=== PATIENT | male | born 1950 | race Caucasian/White ===

== ENCOUNTER 2020-06-12 03:20 | Emergency (ER) | payer OTHER ==
[2020-06-12 04:00] LABS: Basophils % 1.1 % (0-1.3); Hematocrit 39.4 % (39.6-49.0); Lymphocytes % 24.1 % (15.3-44.8); MPV 10.5 fL (7.6-11.3); RBC Red Blood Cell Count 4.38 M/uL (4.33-5.43)
[2020-06-12 04:03] LABS: Protime INR 1.12
[2020-06-12 04:32] LABS: ALT/SGPT 36 U/L (12-78); AST/SGOT 38 U/L (15-37); Albumin 3.3 g/dL (3.4-5.0); Alkaline Phosphatase 115 U/L (45-117); BUN Blood Urea Nitrogen 28 mg/dL (7-18); Bicarbonate 25 mmol/L (21-32); Bilirubin Direct 0.2 mg/dL (0-0.2); Bilirubin Total 0.6 mg/dL (0.2-1.0); Glucose Level 229 mg/dL (74-106); NT PRO-BNP 2523 pg/mL (<125); Potassium 4.1 mmol/L (3.5-5.1); Protein, Total 7.4 g/dL (6.4-8.2); Sodium Level 139 mmol/L (136-145); Troponin (Emerg Dept Use Only) < 0.02 ng/mL (0.0-0.045)
[2020-06-12] MEDS ORDERED: AZITHROMYCIN 500 MG INJ IVPB ONE (05:13)
[2020-06-12] MEDS ORDERED: NA CHLORIDE 0.9% 250 ML ONE (05:14)
[2020-06-12] MEDS ORDERED: FUROSEMIDE 20 MG/ 2ML VIAL ONE (05:15)
--- NOTE | 2020-06-12 06:38 | ER ---
Nurse's Notes [facility] Name: Gian Guallpa Age: 69 yrs Sex: Male : 1950 Arrival Date: 06/12/2020 Time: 03:21 Bed 5 Private MD: Diagnosis: Acute on chronic combined systolic (congestive) and diastolic (congestive) heart failure;Pneumonia due to other infectious organisms, not elsewhere classified Presentation: 06/12 03:32 Chief complaint: Patient states: SOB AND COUGH STARTED TWO NIGHTS AGO, WORSENING rv SYMPTOMS TONIGHT. DENIES CHEST PAIN AND FEVER. Coronavirus screen: cough unrelated to allergies, shortness of breath. Coronavirus screen: Client presents with at least one sign or symptom that may indicate coronavirus-19. Standard/surgical mask placed on the client. Provider contacted for isolation considerations. Ebola Screen: No symptoms or risks identified at this time. Initial Sepsis Screen: Does the patient meet any 2 criteria? No. Patient's initial sepsis screen is negative. Does the patient have a suspected source of infection? No. Patient's initial sepsis screen is negative. Risk Assessment: Do you want to hurt yourself or someone else? Patient reports no desire to harm self or others. Onset of symptoms was June 11, 2020. 03:32 Method Of Arrival: Ambulatory rv 03:32 Acuity: CELINA 3 rv Triage Assessment: 03:32 General: Appears comfortable, Behavior is calm, cooperative. Pain: Denies pain. EENT: rv No signs and/or symptoms were reported regarding the EENT system. Neuro: Level of Consciousness is awake, alert, obeys commands, Oriented to person, place, time, situation. Cardiovascular: Patient's skin is warm and dry. Rhythm is sinus rhythm. Respiratory: Reports shortness of breath at rest Breath sounds are clear bilaterally. Onset: The symptoms/episode began/occurred yesterday, the patient has mild shortness of breath. Derm: Skin is intact. Historical: - Allergies: 03:30 No Known Allergies; sg - PMHx: 03:30 CHF; Diabetes - NIDDM; Hyperlipidemia; Hypertension; Hypothyroidism; sg - PSHx: 03:30 Pace maker/ difibulator S/P 2008; lung sugery s/p 1972; skin cancer removal; sg - Immunization history:: Adult Immunizations up to date. - Social history:: Smoking status: Patient denies any tobacco usage or history of. Patient/guardian denies using alcohol, street drugs, The patient lives with family. - Family history:: not pertinent. Screenin:35 Abuse screen: Denies threats or abuse. Denies injuries from another. Nutritional rv screening: No deficits noted. Tuberculosis screening: No symptoms or risk factors identified. Fall Risk None identified. Assessment: 03:36 Respiratory: Airway is patent Respiratory effort is even, unlabored. rv Vital Signs: 03:32 BP 113 / 76; Pulse 96; Resp 18; Temp 97.8; Pulse Ox 89% on R/A; Weight 99.79 kg; Height rv 6 ft. 2 in. (187.96 cm); Pain 0/10; 04:07 Pulse Ox 98% on 2 lpm NC; rv 05:04 BP 103 / 45; Pulse 83; Resp 19; Pulse Ox 99% on 2 lpm NC; rv 06:09 BP 93 / 55; Pulse 88; Resp 18; Temp 98; Pulse Ox 93% on R/A; rv 03:32 Body Mass Index 28.25 (99.79 kg, 187.96 cm) rv ED Course: 03:21 Patient arrived in ED. cf2 03:26 Triston Antunez, CELESTINA is Primary Nurse. rv 03:34 Triage completed. rv 03:35 Arm band placed on right wrist. Patient placed in the treatment room, on a stretcher, rv Patient notified of wait time. 03:36 Patient has correct armband on for positive identification. independent distributor on. Pulse rv ox on. NIBP on. 03:36 No provider procedures requiring assistance completed. rv 03:45 Inserted saline lock: 20 gauge in right forearm, using aseptic technique. Blood rv collected. 03:45 Initial lab(s) drawn, by me, sent to lab. EKG done, by ED staff, reviewed by Candelario Schofield MD. 03:46 Candelario Schofield MD is Attending Physician. ma2 04:25 XRAY Chest (1 view) In Process Unspecified. EDMS 06:45 IV discontinued, intact, bleeding controlled, No redness/swelling at site. Pressure rv dressing applied. Administered Medications: 05:04 Drug: Lasix 20 mg Route: IVP; Site: right forearm; rv 06:09 Follow up: Response: No adverse reaction rv 05:04 Drug: AZITHromycin 500 mg Route: IVPB; Infused Over: 1 hrs; Site: right forearm; rv 06:10 Follow up: IV Status: Completed infusion; IV Intake: 250ml rv Intake: 06:10 IV: 250ml; Total: 250ml. rv Outcome: 06:09 Discharged to home ambulatory. rv 06:09 Condition: good 06:37 Discharge ordered by MD. aldana 06:45 Discharge instructions given to patient, Instructed on discharge instructions, follow rv up and referral plans. medication usage, Demonstrated understanding of instructions, follow-up care, medications, Prescriptions given X 2. 06:45 Patient left the ED. rv Signatures: Dispatcher [employer] EDMS Terence Rapp RN RN Candelario Schofield MD MD [facility] [place] Triston Antunez RN RN rv Brandan Osullivan 2
--- NOTE | 2020-06-12 06:38 | EDPHYS ---
Physician Documentation [facility] Name: Gian Guallpa Age: 69 yrs Sex: Male : 1950 Arrival Date: 06/12/2020 Time: 03:21 Bed 5 Private MD: ED Physician Candelario Schofield HPI: 06/12 04:15 This 69 yrs old Male presents to ER via Ambulatory with complaints of ma2 Shortness Of Breath. 04:15 The patient has shortness of breath with light activity. Onset: The symptoms/episode ma2 began/occurred gradually, 3 day(s) ago. Associated signs and symptoms: Pertinent negatives: productive cough, dizziness, hemoptysis, loss of consciousness. Severity of symptoms: At their worst the symptoms were mild in the emergency department the symptoms are unchanged. The patient has experienced similar episodes in the past. Historical: - Allergies: 03:30 No Known Allergies; sg - PMHx: 03:30 CHF; Diabetes - NIDDM; Hyperlipidemia; Hypertension; Hypothyroidism; sg - PSHx: 03:30 Pace maker/ difibulator S/P 2008; lung sugery s/p 1972; skin cancer removal; sg - Immunization history:: Adult Immunizations up to date. - Social history:: Smoking status: Patient denies any tobacco usage or history of. Patient/guardian denies using alcohol, street drugs, The patient lives with family. - Family history:: not pertinent. ROS: 04:15 Constitutional: Negative for fever, chills, and weight loss. ma2 04:15 All other systems are negative. Exam: 04:15 Constitutional: This is a well developed, well nourished patient who is awake, alert, ma2 and in no acute distress. Head/Face: Normocephalic, atraumatic. Eyes: Pupils equal round and reactive to light, extra-ocular motions intact. Lids and lashes normal. Conjunctiva and sclera are non-icteric and not injected. Cornea within normal limits. Periorbital areas with no swelling, redness, or edema. ENT: Nares patent. No nasal discharge, no septal abnormalities noted. Tympanic membranes are normal and external auditory canals are clear. Oropharynx with no redness, swelling, or masses, exudates, or evidence of obstruction, uvula midline. Mucous membranes moist. Neck: Trachea midline, no thyromegaly or masses palpated, and no cervical lymphadenopathy. Supple, full range of motion without nuchal rigidity, or vertebral point tenderness. No Meningismus. Chest/axilla: Normal chest wall appearance and motion. Nontender with no deformity. No lesions are appreciated. Cardiovascular: Regular rate and rhythm with a normal S1 and S2. No gallops, murmurs, or rubs. Normal PMI, no JVD. No pulse deficits. Respiratory: Lungs have equal breath sounds bilaterally, clear to auscultation and percussion. No rales, rhonchi or wheezes noted. No increased work of breathing, no retractions or nasal flaring. Abdomen/GI: Soft, non-tender, with normal bowel sounds. No distension or tympany. No guarding or rebound. No evidence of tenderness throughout. Back: No spinal tenderness. No costovertebral tenderness. Full range of motion. Skin: Warm, dry with normal turgor. Normal color with no rashes, no lesions, and no evidence of cellulitis. MS/ Extremity: Pulses equal, no cyanosis. Neurovascular intact. Full, normal range of motion. Neuro: Awake and alert, GCS 15, oriented to person, place, time, and situation. Cranial nerves II-XII grossly intact. Motor strength 5/5 in all extremities. Sensory grossly intact. Cerebellar exam normal. Normal gait. Vital Signs: 03:32 BP 113 / 76; Pulse 96; Resp 18; Temp 97.8; Pulse Ox 89% on R/A; Weight 99.79 kg; Height rv 6 ft. 2 in. (187.96 cm); Pain 0/10; 04:07 Pulse Ox 98% on 2 lpm NC; rv 05:04 BP 103 / 45; Pulse 83; Resp 19; Pulse Ox 99% on 2 lpm NC; rv 06:09 BP 93 / 55; Pulse 88; Resp 18; Temp 98; Pulse Ox 93% on R/A; rv 03:32 Body Mass Index 28.25 (99.79 kg, 187.96 cm) rv MDM: 03:46 Patient medically screened. f f [facility] 04:15 Differential diagnosis: Anxiety Reaction asthma, Bronchitis reactive airway disease. ma2 04:19 Data reviewed: vital signs, nurses notes. Counseling: I had a detailed discussion with ma2 the patient and/or guardian regarding: the historical points, exam findings, and any diagnostic results supporting the discharge/admit diagnosis, the presence of at least one elevated blood pressure reading (>120/80) during this emergency department visit, the need for outpatient follow up. ED course: patient has not been taking his lasix recently \E\. 06:36 Response to treatment: the patient's symptoms have markedly improved after treatment. ma2 06/12 03:44 Order name: Basic Metabolic Panel; Complete Time: 04:55 rv 06/12 03:44 Order name: CBC with Diff; Complete Time: 04:20 06/12 03:44 Order name: LFT's; Complete Time: 04:55 rv 06/12 03:44 Order name: Magnesium; Complete Time: 04:55 06/12 03:44 Order name: NT PRO-BNP; Complete Time: 04:55 06/12 03:44 Order name: PT-INR; Complete Time: 04:55 rv 06/12 03:44 Order name: Troponin (emerg Dept Use Only); Complete Time: 04:55 rv 06/12 03:44 Order name: XRAY Chest (1 view) rv 06/12 03:44 Order name: EKG; Complete Time: 03:45 rv 06/12 05:31 Order name: SARS-COV-2 RT PCR; Complete Time: 06:05 EDMS 06/12 03:44 Order name: Cardiac monitoring; Complete Time: 03:46 06/12 03:44 Order name: EKG - Nurse/Tech; Complete Time: 03:46 rv 06/12 03:44 Order name: IV Saline Lock; Complete Time: 03:46 rv 06/12 03:44 Order name: Labs collected and sent; Complete Time: 03:46 06/12 03:44 Order name: O2 Per Protocol; Complete Time: 03:46 06/12 03:44 Order name: O2 Sat Monitoring; Complete Time: 03:46 rv Administered Medications: 05:04 Drug: Lasix 20 mg Route: IVP; Site: right forearm; rv 06:09 Follow up: Response: No adverse reaction rv 05:04 Drug: AZITHromycin 500 mg Route: IVPB; Infused Over: 1 hrs; Site: right forearm; rv 06:10 Follow up: IV Status: Completed infusion; IV Intake: 250ml rv Disposition: 06/12/20 06:37 Discharged to Home. Impression: Acute on chronic combined systolic (congestive) and diastolic (congestive) heart failure, Pneumonia due to other infectious organisms, not elsewhere classified. - Condition is Stable. - Discharge Instructions: Community-Acquired Pneumonia, Adult, [id number], Heart Failure, [id number]. - Prescriptions for Lasix 20 mg Oral Tablet - take 1 tablet by ORAL route once daily; 20 tablet. Zithromax Z- Farhan 250 mg Oral Tablet - take 1 tablet by ORAL route as directed for 5 days Day 1 - take two (2) tablets one time. Day 2, 3, 4 , 5 take one (1) tablet once daily.; 6 tablet. - Medication Reconciliation Form, Thank You Letter, Antibiotic Education, Prescription Opioid Use form. - Follow up: Private Physician; When: Tomorrow; Reason: Continuance of care. Signatures: Dispatcher [employer] EDDC Terence Rapp RN RN sg Candelario Schofield MD MD ma2 Triston Antunez RN RN rv Corrections: (The following items were deleted from the chart) 04:39 04:15 CORONAVIRUS ordered. EDDC EDMS 06:45 06:37 06/12/2020 06:37 Discharged to Home. Impression: Acute on chronic combined rv systolic (congestive) and diastolic (congestive) heart failure; Pneumonia due to other infectious organisms, not elsewhere classified. Condition is Stable. Prescriptions for Lasix 20 mg Oral Tablet - take 1 tablet by ORAL route once daily; 20 tablet, Zithromax Z-Farhan 250 mg Oral Tablet - take 1 tablet by ORAL route as directed for 5 days Day 1 - take two (2) tablets one time. Day 2, 3, 4 , 5 take one (1) tablet once daily.; 6 tablet. and Forms are Medication Reconciliation Form, Thank You Letter, Antibiotic Education, Prescription Opioid Use. Follow up: Private Physician; When: Tomorrow; Reason: Continuance of care. ma2
[2020-06-12 06:57] VITALS: BP 93/55; TEMP 98; O2SAT 93
--- NOTE | 2020-06-12 07:43 | RAD REPORT ---
EXAM DESCRIPTION: Bharathi Single View06/12/2020 4:24 am CLINICAL HISTORY: Shortness of breath COMPARISON: 2013 FINDINGS: Mild left lung opacities. Postsurgical changes involve the left lung with volume loss. The re may be a small left pleural effusion or thickening Right lung appears clear of acute infiltrate The heart is mildly to moderately enlarged. Pacemaker leads in place IMPRESSION: Mild left lung opacities may represent pneumonia. This should be followed until it is cl ear to help exclude a post obstructive process/underlying mass
--- NOTE | 2020-06-12 18:41 | EKG ---
Test Date: 2020-06-12 Test Time: 03:36:25 Reservation Clerk: MIKE MEASUREMENT RESULTS: Intervals: Rate: 90 SC: 198 QRSD: 150 QT: 432 QTc: 528 [place]: P: 75 SC: 198 QRS: 104 T: -73 INTERPRETIVE STATEMENTS: Atrial-sensed ventricular-paced rhythm Abnormal ECG Compared to ECG 03/09/2014 07:04:31 Sinus rhythm no longer present Ventricular premature complex(es) no longer present Electronically Signed On 06-12-20 18:40:12 RUG TOUCH UP PAINTER by Reggie Mcdonald
--- OUTSIDE RECORDS SUMMARY | 2020-06-13 02:43 | XMS REPORT | Continuity of Care Document ---
:1950 Author Organization [facility] t Address [address] [place] [address] [address]. [address] [place] [address] Care Team Providers Name Role Phone Daryl Crawford MD Primary Care Physician Mirna HARP Attending Clinician Devante DOMINGUEZ Attending Clinician Chantell OSCAR, D Attending Clinician Unavailable Abe STERN Attending Clinician Unavailable Amado HARP Attending Clinician Jolene HARP Attending Clinician Sarahi OSCAR Attending Clinician Unavailable Kris Attending Clinician Unavailable Sharmin COPE Attending Clinician Unavailable Tracy Mackenzie MA Attending Clinician Unavailable CHRISTO Attending Clinician Unavailable CHRISTO Kimbroughitting Clinician Unavailable Payers Payer Name Policy Type Policy Effective Date Expiration Date Sour ce Number MEDICAREMEDICARE PART [id number] 2014 Antolin Perdomo AND 00:00:00 [facility] [id number] [address] [facility] [employer] [id number] 2014 Yana ston OF 00:00:00 Orthodox [id number] 5-PresentCommercial Problems Condition Condition Condition Status Onset Resolution Last Treating Co mments Source Name Details Category Date Date Treatment Clinician Date Heart Heart Disease Active Overview: [place] n failure failure 4- Added Methodi 00:00: automatic st 00 ally from request for surgery [id number] Cardiomyop Cardiomyop Disease Active Overview : Maik athy athy 08-02 Added Methodi 00:00: automatic st 00 ally from request for surgery [id number] 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 7-11 Method i mellitus mellitus 00:00: st with with 00 hyperglyce hyperglyce tho, tho, without without long-term long-term current current use of use of insulin insulin Chronic Chronic Disease Active Overview: [place] combined combined 3-19 Added Method i systolic systolic 00:00: automatic st and and 00 ally from diastolic diastolic request congestive congestive for heart heart surgery failure failure [id number] Secondary Secondary Disease Active Yana ston hypertensi hypertensi 9-06 Me thodi on on 00:00: st 00 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 Family History Family Member Diagnosis Comments Start Date Stop Date Source [facility] Social History Social Habit Start Date Stop Date Quantity Comments Source [facility] Not sure Jay Metho dist SARS-CoV-2 (event) Cigarettes smoked 2019-12-21 2019-12-21 Jay [facility] current (pack per 00:00:00 00:00:00 day) - Reported Cigarette 2019-12-21 2019-12-21 Jay Method ist pack-years 00:00:00 00:00:00 Tobacco use and 2019-12-21 2019-12-21 [facility] 00:00:00 00:00:00 Alcohol intake 2019-12-21 2019-12-21 [facility]:00 00:00:00 non-drinker of alcohol (finding) Smoking Status Start Date Stop Date Source Former smoker 2019-12-21 00:00:00 2019-12-21 00:00:00 Maik Renteria Medications Ordered Filled Start Stop Current Ordering Indication Dosage Frequency Signature Comments Components Source Medication Medication Date Date Medication? Clinician (SIG) Name Name carvediloL Yes Chronic TAKE 1 Antolin friendyonathan (COREG) 25 2-01 combined TABLET (25 Methodi MG tablet 00:00: systolic MG TOTAL) st 00 and BY MOUTH 2 diastolic (TWO) congestive TIMES A heart DAY FOR failure 270 DAYS. (HCC) torsemide 2020- Yes 20mg QD TAKE 1 [place] (DEMADEX) 06-04 TABLET (20 Met hodi 20 MG 00:00: 23:59 MG TOTAL) st tablet 00 :00 BY MOUTH DAILY FOR 270 DAYS. spironolact Yes TAKE 1 [place] one 1-07 TABLET Methodi (ALDACTONE) 00:00: EVERY DAY s t 25 MG 00 tablet allopurinol 2019-05 Yes 100mg QD Take 100 [place] (ZYLOPRIM) 1-18 mg by Methodi 100 MG 08:24: mouth st tablet 25 daily. levothyroxi 2019-05 Yes 150ug QD Take 150 [place] ne 1-18 mcg by Methodi (SYNTHROID, 08:24: mouth st LEVOXYL) 25 daily. 150 mcg tablet spironolact 2019-05- No TAKE 1 [place] one 05-09- TABLET Methodi (ALDACTONE) 00:00: 00:[address] 25 MG 00 :00 tablet digOXIN Yes TAKE 1 [facility] (LANOXIN) 8-20 TABLET Methodi 125 mcg 00:00: EVERY DAY st (0.125 mg) 00 tablet sotalol 2019- No 80mg QD Take 80 mg Yana ston (BETAPACE) 12-20 by mouth Meth taylor 80 MG 11:17: 00:[address] tablet 33 :00 carvediloL 2020- No Chronic 12.5mg Q.5D Take 0.5 [facility] (Coreg) 25 12-20 combined tablets M ethodi MG tablet 00:00: 00:00 systolic (12.[address] 00 :00 and total) by diastolic mouth 2 congestive (two) heart times a failure day for (HCC) 270 days. sotaloL 2019- No Secondary 120mg QD Take 1.5 [facility] (BETAPACE) 12-20 hypertensio tablets Methodi 80 MG 00:00: 23:59 n ([address] tablet 00 :00 total) by mouth daily for 90 days. torsemide 2019- No 20mg QD Take 20 mg [place] (DEMADEX) 10-10 0609 by mouth Metho di 20 MG 11:03: 00:[address] tablet 56 :00 magnesium 2019-2020- No Chronic 400mg QD Take 1 [place] oxide 10-10 combined tablet Methodi (MAG-OX) 00:00: 23:59 systolic (400 mg s t 400 mg 00 :00 and total) by (241.3 mg diastolic mouth magnesium) congestive daily for tablet heart 270 days. failure (HCC) sacubitriL- 2020- No 1{tbl} Q.5D Take 1 [place] valsartan 10-10 tablet by Meth taylor (ENTRESTO) 00:00: 23:[address] 49-51 mg 00 :00 (two) tablet per times a tablet day for 270 days. torsemide No 20mg QD Take 1 [place] (DEMADEX) 10-10 tablet (20 Met hodi 20 MG 00:00: 00:00 mg total) st tablet 00 :00 by mouth daily for 270 days. carvediloL 2019- No Chronic 25mg Q.5D Take 1 [place] (Coreg) 25 10-10 08-19 combined tablet (25 Methodi MG tablet 00:00: 00:00 systolic mg total) st 00 :00 and by mouth 2 diastolic (two) congestive times a heart day for failure 270 days. (HCC) sacubitril- 2019- No 1{tbl} Q.5D Take 1 [place] valsartan -28 09-28 tablet by Meth taylor (ENTRESTO) 16:02: 00:[address] 49-51 mg 01 :00 (two) tablet per times a tablet day. sacubitriL- 2019- No 1{tbl} Q.5D Take 1 [place] valsartan -29 10-09 tablet by Meth taylor (ENTRESTO) 00:00: 00:[address] 49-51 mg 00 :00 (two) tablet per times a tablet day for 270 days. simvastatin 2019- Yes TAKE 1 [place] (ZOCOR) 20 -26 TABLET Methodi mg tablet 00:00: EVERY st 00 NIGHT spironolact 2019-2019- No TAKE 1 [place] one - 11-06 TABLET Methodi (ALDACTONE) 00:00: 00:[address] 25 MG 00 :00 tablet simvastatin 2019- No TAKE 1 [place] (ZOCOR) 20 08-02 TABLET Method i MG tablet 00:00: 00:[address] 00 :00 NIGHT spironolact 2019- No TAKE 1 [place] one 08-02 TABLET Methodi (ALDACTONE) 00:00: 00:[address] 25 MG 00 :00 tablet digOXIN 2019- 125ug QD Take 1 [place] (LANOXIN) 05-25 tablet Methodi 125 mcg 00:00: 00:00 ([address] (0.125 mg) 00 :00 total) by tablet mouth daily for 270 days. spironolact 2019- TAKE 1 [place] one 05-25 TABLET Methodi (ALDACTONE) 00:00: 00:[address] 25 MG 00 :00 tablet simvastatin 2019- No TAKE 1 [place] (ZOCOR) 20 05-25 TABLET Method i MG tablet 00:00: 00:[address] 00 :00 NIGHT carvedilol 2019- No Chronic 25mg Q.5D Take 1 [place] (COREG) 25 12-10 combined tablet (25 Methodi MG tablet 00:00: 00:00 systolic mg total) st 00 :00 and by mouth 2 diastolic (two) congestive times a heart day for failure 270 days. ([facility]) metFORMIN Yes 1000mg QD Take 1 [place] (GLUCOPHAGE 10-19 tablet Method i ) 1,000 mg 00:00: (1,[address] tablet 00 total) by mouth daily with lunch. magnesium 2019- No Chronic 400mg QD Take 1 [place] oxide 10-19 combined tablet Methodi (MAG-OX) 00:00: 00:00 systolic (400 mg s t 400 mg 00 :00 and total) by (241.3 mg diastolic mouth magnesium) congestive daily for tablet heart 270 days. failure (HCC) sacubitril- 2019- No Chronic 1{tbl} Q.5D Take 1 [facility] valsartan 10-19 combined tablet by Methodi (ENTRESTO) 00:00: 00:[address] 49-51 mg 00 :00 and (two) tablet per diastolic times a tablet congestive day for heart 180 days. failure (HCC) Immunizations Ordered Immunization Filled Immunization Date Status Commen ts Source Name Name Pneumococcal 2017-02-13 Completed [facility] Conjugate 13-Valent 00:00:00 Metho dist Vital Signs Vital Name Observation Time Observation Value Comments Source Systolic blood 2020-03-21 08:08:00 94 mm[Hg] [place] [facility] pressure Diastolic blood 2020-03-21 08:08:00 51 mm[Hg] [place] [facility] pressure Heart rate 2020-03-21 08:08:00 73 /min Maik Renteria Body temperature 2020-03-21 08:08:00 36.22 Mary [place] [facility] Respiratory rate 2020-03-21 08:08:00 17 /min [place] [facility] Body height 2020-03-21 08:08:00 182.9 cm Maik Renteria Body weight 2020-03-21 08:08:00 96.208 kg Maik Renteria BMI 2020-03-21 08:08:00 28.77 kg/m2 Maik Renteria Oxygen saturation in 2020-03-21 08:08:00 97 /min Maik Renteria Arterial blood by Pulse oximetry Procedures Procedure Date / Time Performing Clinician Source Performed ECG 12-LEAD 2020-03-21 08:06:06 Tha Cruz HEMOGLOBIN A1C 2020-03-21 07:57:00 Reina Fischer HC COMPLETE BLD COUNT 2020-03-21 07:57:00 Reina Fischer W/AUTO DIFF NT-PROBNP 2020-03-21 07:53:00 Reina Fischer T3 2020-03-21 07:53:00 Reina Fischer T4, FREE 2020-03-21 07:53:00 Reina Fischer THYROID STIMULATING 2020-03-21 07:53:00 Reina Fischer HORMONE COMPREHENSIVE METABOLIC 2020-03-21 07:53:00 Reina Fischer PANEL MAGNESIUM LEVEL 2020-03-21 07:53:00 Reina Fischer PHOSPHORUS LEVEL 2020-03-21 07:53:00 Reina Fischer ESTIMATED GFR 2020-03-21 07:53:[address] HEAD WO CONTRAST 2019-12-21 15:30:[address] CHEST WO CONTRAST 2019-12-21 15:00:00 Ovidio Bradley ABDOMEN WO CONTRAST PELVIS WO CONTRAST XR PANOREX 2019-12-21 12:46:04 Ovidio Bradley Met hodist SIX MINUTE WALK W/ PULSE 2019-12-21 12:16:59 Ovidio Bradley [place] [facility] OXIMETRY SPIROMETRY, DIFFUSION 2019-12-21 12:13:13 Ovidio Bradley on Orthodox ECG 12-LEAD 2019-12-21 10:16:30 Tha Cruz CBC WITH PLATELET AND 2019-12-21 09:50:00 Tha Cruz DIFFERENTIAL COMPREHENSIVE METABOLIC 2019-12-21 09:50:00 Tha Cruz Orthodox PANEL B NATRIURETIC PEPTIDE 2019-12-21 09:50:00 Tha Cruz Orthodox LIPID PANEL 2019-12-21 09:50:00 Tha Cruz Meth dalila NICOTINE AND COTININE, 2019-12-21 09:50:00 Tha Cruz on Orthodox SERUM MAGNESIUM LEVEL 2019-12-21 09:50:00 Tha Cruz Meth odist URIC ACID LEVEL 2019-12-21 09:50:00 Tha Cruz Meth odist DIGOXIN LEVEL 2019-12-21 09:50:00 Tha Cruz Meth odlina HEMOGLOBIN A1C 2019-12-21 09:50:00 Tha Cruz Meth odist PROTHROMBIN TIME WITH INR 2019-12-21 09:50:00 Ovidio Bradley PARTIAL THROMBOPLASTIN 2019-12-21 09:50:00 Ovidio Bradley Orthodox TIME (PTT) T3 2019-12-21 09:50:00 Ovidio Bradley Met hodist T4 2019-12-21 09:50:00 Ovidio Bradley Met hodist T4, FREE 2019-12-21 09:50:00 Ovidio Bradley Met hodist SYPHILIS TOTAL ANTIBODY 2019-12-21 09:50:00 [facility] PREALBUMIN LEVEL 2019-12-21 09:50:00 Ovidio Bradley Maik Me thodist LDH 2019-12-21 09:50:00 [facility] Met hodist HIV AG/AB COMBINATION 2019-12-21 09:50:00 Ovidio Bradley on Orthodox HEPATITIS ACUTE PANEL 2019-12-21 09:50:00 imaOvidio moore on Orthodox HEPATITIS B SURFACE 2019-12-21 09:50:00 [facility] ANTIBODY HEPATITIS B CORE ANTIBODY 2019-12-21 09:50:00 [facility] TOTAL HEPATITIS A ANTIBODY TOTAL 2019-12-21 09:50:00 [facility] CYTOMEGALOVIRUS AB, IGG 2019-12-21 09:50:00 [facility] CYTOMEGALOVIRUS AB, IGM 2019-12-21 09:50:00 [facility] TOXOPLASMA GONDII 2019-12-21 09:50:00 [facility] Pleitez ethodist ANTIBODY, IGG TOXOPLASMA IGM AB 2019-12-21 09:50:00 [facility] Maik M ethodist THYROID STIMULATING 2019-12-21 09:50:00 [facility] HORMONE MARIE BASS VIRUS (EBV) 2019-12-21 09:50:00 [facility] BY PCR ESTIMATED GFR 2019-12-21 09:50:00 Tha Cruz BILIRUBIN DIRECT 2019-12-21 09:50:00 Tha rCuz Met hodist HC COMPLETE BLD COUNT 2019-09-14 11:15:00 Tha Cruz W/AUTO DIFF COMPREHENSIVE METABOLIC 2019-09-14 11:15:00 Tha Cruz PANEL B NATRIURETIC PEPTIDE 2019-09-14 11:15:00 Tha Cruz LIPID PANEL 2019-09-14 11:15:00 Anthony, Ashrith Pleitez Meth odist NICOTINE AND COTININE, 2019-09-14 11:15:00 Tha Cruzt on Orthodox SERUM MAGNESIUM LEVEL 2019-09-14 11:15:00 Anthony Tha [facility] Meth odist URIC ACID LEVEL 2019-09-14 11:15:00 Anthony Tha Ple[facility]z Meth odist DIGOXIN LEVEL 2019-09-14 11:15:00 Anthony Tha Pleitez Meth odist HEMOGLOBIN A1C 2019-09-14 11:15:00 Anthony Tha Maik Meth odist ESTIMATED GFR 2019-09-14 11:15:00 Tha Cruz [facility] Meth odist ECG 12-LEAD 2019-09-14 10:06:09 Anthony, Tha Pleitez Meth odlina TTE COMPLETE, WO CONTRAST, 2019-06-15 13:56:17 Ovidio Bradley W DOPPLER ([id number]) ECG 12-LEAD 2019-06-15 11:26:53 Anthony Jerelcharleneselina Maik Posada odlina HEMOGLOBIN A1C 2019-06-15 10:59:00 Ovidio Bradley Met jillian HC COMPLETE BLD COUNT 2019-06-15 10:59:00 Tha Cruz W/AUTO DIFF COMPREHENSIVE METABOLIC 2019-06-15 10:59:00 Tha Cruz PANEL B NATRIURETIC PEPTIDE 2019-06-15 10:59:00 Tha Cruz LIPID PANEL 2019-06-15 10:59:00 Tha Cruz NICOTINE AND COTININE, 2019-06-15 10:59:00 Tha Cruz on Orthodox SERUM MAGNESIUM LEVEL 2019-06-15 10:59:00 Anthony Jerelying Ple[facility] Meth odist URIC ACID LEVEL 2019-06-15 10:59:00 AnthonyTha elizabeth Meth odist DIGOXIN LEVEL 2019-06-15 10:59:00 Anhtony Jerelying Posada odlina ESTIMATED GFR 2019-06-15 10:59:00 Ovidio Bradley Met jillian SINGLE ANTIGEN BEADS 2019-06-15 10:59:00 Tha Cruz Plan of Care Planned Activity Planned Date Details Comments Source Future Scheduled 2019-12-03 INFLUENZA VACCINE [place] [facility] Test 00:00:00 [code = INFLUENZA VACCINE] Future Scheduled 2018-02-13 65+ PNEUMOCOCCAL [facility] Test 00:00:00 VACCINE (2 of 2 - PPSV23) [code = 65+ PNEUMOCOCCAL VACCINE (2 of 2 - PPSV23)] Future Scheduled 1999-11-15 COLONOSCOPY SCREENING [place] [facility] Test 00:00:00 [code = COLONOSCOPY SCREENING] Future Scheduled 1999-11-15 SHINGLES VACCINES (#1) [facility] Test 00:00:00 [code = SHINGLES VACCINES (#1)] Future Scheduled 1965 COVID-19 VACCINE (1 of [place] [facility] Test 00:00:00 2) [code = COVID-19 VACCINE (1 of 2)] Future Scheduled 1959-11-15 DIABETES: RETINAL EYE [place] [facility] Test 00:00:00 EXAM [code = DIABETES: RETINAL EYE EXAM] Future Scheduled 1959-11-15 DIABETIC FOOT EXAM [facility] Test 00:00:00 [code = DIABETIC FOOT EXAM] Encounters Start End Encounter Admission Attending Care Care Encounter Source Date/Time Date/Time Type Type Clinicians Facility Department ID 2020-03-21 2020-03-21 Outpatient [facility] [id number] Jay 00:00:00 00:00:00 OVIDIO 087 Method i 2020-03-21 2020-03-21 Outpatient [facility] [id number] Jay 00:00:00 00:00:00 OVIDIO [address] 2020-03-21 2020-03-21 Outpatient [facility] [id number] Jay 00:00:00 00:00:00 OVIDIO 826 Method i 2020-03-21 2020-03-21 Outpatient [facility] [id number] Jay 00:00:00 00:00:00 OVIDIO [address] 2019-12-21 2019-12-21 Outpatient [facility] [id number] Jay 00:00:00 00:00:[address] 2019-12-21 2019-12-21 Outpatient [facility] [id number] Jay 00:00:00 00:00:00 OVIDIO [address] 2019-12-21 2019-12-21 Outpatient [facility] [id number] Jay 00:00:00 00:00:00 OVIDIO [address] 2019-12-21 2019-12-21 Outpatient [facility] [id number] Jay 00:00:00 00:00:00 OVIDIO [address] 2019-12-21 2019-12-21 Outpatient [facility] [id number] Jay 00:00:00 00:00:00 OVIDIO [address] 2019-12-21 2019-12-21 Outpatient [facility] [id number] Jay 00:00:00 00:00:00 OVIDIO [address] 2019-09-14 2019-09-14 Outpatient [facility] [id number] Jay 00:00:00 00:00:00 OVIDIO [address] 2019-09-14 2019-09-14 Outpatient [facility] [id number] Jay 00:00:00 00:00:00 OVIDIO [address] 2019-06-15 2019-06-15 Outpatient [facility] [id number] Jay 00:00:00 00:00:00 OVIDIO [address] 2019-06-08 2019-06-08 Outpatient [facility] [id number] Jay 00:00:00 00:00:00 IMAD [address] Results Test Description Test Time Test Comments Results Result Comments Source ECG 12 lead 2020-03-21 18:56:49 Test Item Value Reference Range Interpretation Comme nts Ventricular rate (test code = 253) 78 Atrial rate (test code = 255) 78 GA interval (test code = 266) 150 QRSD interval (test code = 260) 194 QT interval (test code = 264) 480 QTC interval (test code = 265) 547 QRS axis 1 (test code = 268) -69 T wave axis (test code = 270) 127 EKG impression (test code = 273) AV dual-paced rhythm-Biventricular pacemaker detected-Abnormal ECG-In automated comparison with ECG of 21-DEC-2019 10:16,-premature ventricular complexes are no longer present- Jay [facility]CT Chest Wo Contrast Abdomen Wo Contrast Pelvis Wo Contrast 2019-12-21 15:59:30Hm Interface, Radiology Results - 12/21/2019 4:02 PM CDTEXAMINATION: CT CHEST WO CONTRAST ABDOMEN WO CONTRAST PELVIS WO CONTRASTHISTORY: I42.8 Other cardiomyopathies, I50.42 Chronic combined systolic (congestive) and diastolic (congestive) heart failure, listed for heart transplantTECHNIQUE:CT examination of the chest, abdomen, and pelvis was performed without intravenous contrast. Sagittal and coronal computerized reformatted images were obtained. CT imaging was performed with iterative r econstruction techniques and/or automated exposure control to reduce radiation dose. COMPARISON: 10/21/2018.FINDINGS:CHESTDevices: None.Cardiovascular: Left subclavian AICD with right atrioventricular leads in expected positions. Heart is at the upper limit of normal size. There is no pericardial effusion. There is no significant calcified coronary artery disease. Mediastinum/Nodes: No thoracic lymphadenopathy. Pulmonary: Status post partial left upper lobectomy. There has been progression of multifocal centrilobular nodularity in various areas of the lungs which may represent mucous plugging, e.g. medial segment right middle lobe (302/90), right upper lobe (302/66). Increased volume loss and consolidative change along the anterior left lung. No significant change in an other focal consolidationmore inferiorly (302/68). No effusion or pneumothorax.ABDOMENLiver: Normal size and contour, withoutdiscrete lesion.Gallbladder/Biliary: Gallbladder contains several calcific stones, without findings of acute cholecystitis.Spleen: Normal in size, without discrete lesion.Pancreas: Unremarkable.Adrenal: Unremarkable.Kidneys: No hydronephrosis. There is a left extra renal pelvis. No renal or ureteral stone. Slightly lobulated contour of both kidneys, suggesting scarring from prior insults.Vascular: Greater abdominal vasculature is unremarkable. No abdominal aortic aneurysm.Lymph Nodes: No abdominal lymphadenopathy.Bowel: Small bowel containing right inguinal hernia without evidence of incarceration.Small bowel is unremarkable. Appendix is normal.Peritoneal/Other: No ascites or fluid collections.PELVISUrogenital: Urinary bladder is unremarkable. The prostate gland is enlarged.Other: No mass, fluid collection or significant adenopathy. MUSCULOSKELETALNo new aggressive osseous lesion. Healed extensively remodeled left sixth rib fracture. There are multilevel degenerative spinal changes, featuringflowing ossification along the anterior longitudinal ligament at thoracolumbar levels.IMPRESSION:1.Since the prior CT, there is been mild progression of volume loss and consolidative change of the anterior left upper lobe. Some of this may be related to increasing mucous plugging, which is also seen more broadly throughout the lungs since the prior CT, recommend clinical correlation for signs of infection and consider short term follow up to ensure resolution.2.New multiple areas of centrilobular nodularity throughout both lungs, suggestive of mucus plugging.3.Cholelithiasis.4.Unchanged unincarcerated small bowel-containing right inguinal hernia.[facility]-[id number] MethodistCT Head Wo Contrast 2019-12-21 15:39:10Hm Interface, Radiology Results 12/21/2019 3:42 PM CDTStudy: CT HEAD WO CONTRASTHistory:I42.8 Other cardiomyopathies, I50.42 Chronic combined systolic (congestive) and diastolic (congestive) heart failure, listed heart transplantCOMPARISON:None.TECHNIQUE: Multiple axial CT images of the head obtained without IV contrast. Sagittal and coronal reconstructions were performed.CT imaging was performed with iterative reconstruction technique and/or automated exposure control to reduce radiation dose.FINDINGS:Parenchymal volume is normal. There are changes of chronic small vessel ischemic disease There is no acute hemorrhage, midline shift, hydrocephalus, edema, or extra- axial collections. .The visualized paranasal sinuses are well aerated. The mastoid air cells are well aerated. The calvarium is intact. The visualized orbits are unremarkable.IMPRESSION:No acute or suspicious intracranial a bnormality.[facility]-[id number] MethodistXR [id number] 12:51:00Hm Interface, Radiology Results 12/21/2019 12:54 PM CDTEXAMINATION: XR PANOREXCLINICAL HISTORY: I42.8 Other cardiomyopathies, I50.42 Chronic combined systolic (congestive) and diastolic (congestive) heart failure, listed heart transplant patientCOMPARISON: NoneIMPRESSION:No fracture or subl uxation.Multiple dental fillings. No significant periapical lucency. Unerupted dentition #1 and #16.Partially interrupted dentition #17 and 32.[facility]-[id number] Pleitez MethodistSix minute walk w/ pulse [id number] 12:16:59 Test Item Value Reference Range Interpretation Comments Heart Rate at Rest (test code = 86 1/min 5603) SPO2 at Rest (test code = 5604) 99 % BP Systolic at Rest (test code = 102 mmHg 5605) BP Diastolic at Rest (test code = 51 mmHg 5606) Supplemental O2 at Rest (test code 0 L/min = 5607) Heart Rate after 1 minute (test 98 1/min code = 5608) SPO2 after 1 minute (test code = 98 % 5609) Supplemental O2 after 1 minute 0 L/min (test code = 5612) Heart Rate after 2 minutes (test 102 1/min code = 5613) SPO2 after 2 minutes (test code = 96 % 5614) Supplemental O2 after 2 minutes 0 L/min (test code = 5617) Heart Rate after 3 minutes (test 101 1/min code = 5618) SPO2 after 3 minutes (test code = 96 % 5619) Supplemental O2 after 3 minutes 0 L/min (test code = 5622) Heart Rate after 4 minutes (test 103 1/min code = 5623) SPO2 after 4 minutes (test code = 96 % 5624) Supplemental O2 after 4 minutes 0 L/min (test code = 5627) Heart Rate after 5 minutes (test 105 1/min code = 5628) SPO2 after 5 minutes (test code = 95 % 5629) Supplemental O2 after 5 minutes 0 L/min (test code = 5632) Six Minute Walk Distance in m (test 380 m 361.7-667.7 code = 5633) Heart Rate after 6 minutes (test 106 1/min code = 5634) Highest Heart Rate (test code = 106 1/min 5635) SPO2 after 6 minutes (test code = 95 % 5636) Lowest SpO2 (test code = 5637) 95 % BP Systolic after 6 minutes (test 118 mmHg code = 5639) BP Diastolic after 6 minutes (test 66 mmHg code = 5640) Supplemental O2 after 6 minutes 0 L/min (test code = 5641) Lap Count (test code = 5642) 9 Six Minute Walk Distance Predicted 515 (test code = 5645) Maik MethodistSpirometry, [id number] 12:13:13 Test Item Value Reference Range Interpretation Comments FEV1 Pre (test code = 5348) 2.86 L FEV1/FVC % Pre (test code = 5361) 72.27 % FVC Pre (test code = 5354) 3.96 L PEF Pre (test code = 5367) 6.43 L/s FEF 25-75% Pre (test code = 5547) 2.06 L/s DLCO Pre (test code = 5423) 18.9 ml/(min*mmHg) DL/VA Pre (test code = 5437) 2.91 ml/(min*mmHg*L) VA SB Pre (test code = 5444) 6.49 L DLCOc Pre (test code = 5430) 19.53 ml/(min*mmHg) KCOc SB Pre (test code = 5535) 3.01 ml/(min*mmHg*L) Hb Pre (test code = 5540) 13.5 g(Hb)/dL FEV1 Predicted (test code = 5302) 3.51 FEV1 LLN (test code = 5347) 2.68 FEV1 % Pre of Predicted (test code = 81.5 % 5308) FVC Predicted (test code = 5307) 4.77 FVC LLN (test code = 5353) 3.78 FVC % Pre of Predicted (test code = 83.1 % 5355) FEV1/FVC % Predicted (test code = 74 5359) FEV1/FVC % LLN (test code = 5360) 64 FEV1/FVC % Pre of Predicted (test 98.2 % code = 5362) FEF 25-75% Predicted (test code = 2.66 5546) FEF 25-75% LLN (test code = 5545) 0.97 FEF 25-75% % Pre of Predicted (test 77.4 % code = 5548) PEF Predicted (test code = 5310) 8.82 PEF LLN (test code = 5366) 6.37 PEF % Pre of Predicted (test code = 72.9 % 5368) DLCO Predicted (test code = 5421) 26.99 DLCO LLN (test code = 5422) 19.02 DLCO % Pre of Predicted (test code = 70 % 5424) DLCOc Predicted (test code = 5428) 26.99 DLCOc LLN (test code = 5429) 19.02 DLCOc % Pre of Predicted (test code 72.4 % = 5431) DL/VA Predicted (test code = 5435) 3.82 DL/VA LLN (test code = 5436) 2.62 DL/VA % Pre of Predicted (test code 76.2 % = 5438) KCOc SB Predicted (test code = 5533) 3.82 KCOc SB LLN (test code = 5534) 2.62 KCOc SB % Pre of Predicted (test 78.8 % code = 5536) VA SB Predicted (test code = 5442) 7.21 VA SB LLN (test code = 5443) 5.84 VA SB % Pre of Predicted (test code 90 % = 5445) [facility] MethodistEchocardiogram complete w contrast and 3D if [id number] 17:21:00Interface, Radiology Results In - 06/16/2019 5:22 PM 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 Report [id number]Name: SHASHI ERICKSON.ID: [id number].Date: 06/15/2019 Refer.MD: OVIDIO BRADLEY MD Exam Time: 1:14:00 PM Study Type:Routine Echo Height: 74in Weight: 222lb BSA: 2.27 m2 Age: 7 1950,68Y Sex: MALE BP: 115/70 HR: 74 bpm Sonogrphr: Jaye Diego RDCS Room: [facility] Study Status:Final Echo Event ID:[id number] Order ID: [id number] Reason for Study:HF - Re-eval of known HF (systolic or diastolic) witha change in clinical status or cardiac exam without a clearprecipitating change in medication or dietHistory / Clinical:Arrhythmias, Hypertension, DiabetesProcedures: 2D Echo, Colorflow Doppler, Intravenous Definity ContrastRace: D SUMMARY: LV size is qscbgxhx-[id number] enlarged.Global hypokinesis. Estimated EF is <20%.Mild mitral regurgitation.Diastolic dysfunction Grade I (Mild): Impaired relaxation with normalLV filling pressures.Insufficient TR jet to estimate PA systolic pressure. FINDINGS: LV: LV size is munwvvkj-nj-zmrkluaf enlarged. There is severe eccentric LV hypertrophy. LV EFis severely depressed. Global hypokinesis. Septal motion is paradoxical secondaryto LBBB or conduction abnormality. Estimated EF is <20%.RV: RV size is normal. A pacemaker wire is seen in the RV. RV systolic function is normal.LA: LA volume is mildly enlarged.RA: RA volume is normal. A pacemaker wire is seen.AO: Aortic root diameter is normal.[place]: No pericardial effusion.AV: Aortic valve not well seen. A trace of aortic regurgitatio n.MV: No structural MV abnormalities noted. Mild mitral regurgitation. Etiology of MR is secondary to LV dysfunction and remodeling.PV: Pulmonic valve not well seen.TV: No structural TV abnormalities noted.[place]: Diastolic dysfunction Grade I (Mild): Impaired re laxation with normal LV filling pressures.Other: Insufficient TR jet to estimate PA systolic pressure. MEASUREMENTS: 2DParasternal Long Iron Belt Ao An 2.4 cm LVPWd 1.1 cm Ao Rtd 3.5 cm Index 1.6 cm/m2 LA Ds 4.7 cm IVSd 1.2 cm RWT 0.33 LVIDd 6.7 cm Index 2.9 cm/m2 LV Mass 357 g (122-174) LVIDs 5.4 cm LVM Index 157 g/m2 LV%fs 19 % LVOT 2.2 cm LA Sng Plane LA Area 23 cm2 (8.8-23.4) LA Vol 80 ml Index 35 ml/m2 LA LngAx 5.6 cm LVOT LVOT Area 4 cm2 DOPPLERLVOT Stroke Vol LVOT TVI 13 cm HR 76 bpm LVOT LVOT SV 52 ml LVOT CO 4 l/min SVi 23 ml/m2 LVOT CI 1.8 l/m/m2 Signed 06/16/2019 05:21 PMNaun Jett M.D.[facility]
--- OUTSIDE RECORDS SUMMARY | 2020-06-13 02:43 | XMS REPORT | Clinical Summary ---
:1950 Author Organization [facility] Address [address] [place] [address] Care Team Providers Name Role Phone Daryl Crawford MD, Demian Primary Care Provider Allergies Active Allergy Reactions Severity Noted Date Comments No Known Drug Allergies 09/16/2015 Medications Medication Sig Dispensed Refills Start Date End Date Status allopurinol (ZYLOPRIM) Take 100 mg by 0 Active 100 MG tablet mouth daily. levothyroxine Take 150 mcg by 0 Active (SYNTHROID, LEVOXYL) 150 mouth daily. mcg tablet metFORMIN (GLUCOPHAGE) Take 1 tablet 90 tablet 3 10/19/2018 Active 1,000 mg tablet (1,000 mg total) by mouth daily with lunch. Additional Information Patient taking differently: 3,000 mg oral daily with lunch, Takes 3000 mg at lunch, Reported on 12/21/2019 simvastatin (ZOCOR) 20 TAKE 1 TABLET EVERY 90 tablet 0 020 Active mg tablet NIGHT magnesium oxide (MAG-OX) Take 1 tablet (400 90 tablet 2 201907/07/2020 Active 400 mg (241.3 mg mg total) by mouth magnesium) daily for 270 days. tabletIndications: Chronic combined systolic and diastolic congestive heart failure (HCC) sacubitriL-valsartan Take 1 tablet by 180 tablet 2 10/11/2019 07/07/2020 Active (ENTRESTO) 49-51 mg mouth 2 (two) times tablet per tablet a day for 270 days. Additional Information Patient taking differently: 1 tablet oral Daily, Reported on 03/21/2020 digOXIN (LANOXIN) 125 TAKE 1 TABLET 90 tablet 2 12/22/2019 Active mcg (0.125 mg) tablet EVERY DAY spironolactone TAKE 1 TABLET 90 tablet 0 05/10/2020 Active (ALDACTONE) 25 MG EVERY DAY tablet torsemide (DEMADEX) TAKE 1 TABLET 90 tablet 2 06/04/202003/01 Active 20 MG tablet (20 MG TOTAL) 021 BY MOUTH DAILY FOR 270 DAYS. carvediloL (COREG) 25 TAKE 1 TABLET 180 tablet 3 06/04/2020 Active MG tabletIndications: (25 MG TOTAL) Chronic combined BY MOUTH 2 systolic and (TWO) TIMES A diastolic congestive DAY FOR 270 heart failure (HCC) DAYS. magnesium oxide Take 1 tablet 90 tablet 2 10/19/2018 Discontinued (MAG-OX) 400 mg (400 mg total) 020 (Reorder) (241.3 mg magnesium) by mouth daily tabletIndications: for 270 days. Chronic combined systolic and diastolic congestive heart failure (HCC) sacubitril-valsartan Take 1 tablet 180 tablet 1 10/19/201801/07 Discontinued (ENTRESTO) 49-51 mg by mouth 2 020 tablet per (two) times a tabletIndications: day for 180 Chronic combined days. systolic and diastolic congestive heart failure (HCC) carvedilol (COREG) 25 Take 1 tablet 60 tablet 8 12/10/201801/03 Discontinued MG tabletIndications: (25 mg total) 020 (Reorder) Chronic combined by mouth 2 systolic and (two) times a diastolic congestive day for 270 heart failure (HCC) days. torsemide (DEMADEX) Take 20 mg by 0 Discontinued 20 MG tablet mouth daily. 020 (Reo rder) sotalol (BETAPACE) 80 Take 80 mg by 0 12/02 01/03 Discontinued MG tablet mouth daily. 020 (Reorde r) spironolactone TAKE 1 TABLET 90 tablet 0 05/25/2019 Discontinued (ALDACTONE) 25 MG EVERY DAY 020 tablet digOXIN (LANOXIN) 125 Take 1 tablet 90 tablet 2 05/25/201923/06 Discontinued mcg (0.125 mg) tablet (125 mcg 020 total) by mouth daily for 270 days. simvastatin (ZOCOR) TAKE 1 TABLET 90 tablet 0 05/25/201908/02 Discontinued 20 MG tablet EVERY NIGHT 020 sacubitril-valsartan Take 1 tablet 0 09/28 Discontinued (ENTRESTO) 49-51 mg by mouth 2 020 (Reorder) tablet per tablet (two) times a day. simvastatin (ZOCOR) TAKE 1 TABLET 90 tablet 0 08/03/201909/26 Discontinued 20 MG tablet EVERY NIGHT 020 spironolactone TAKE 1 TABLET 90 tablet 0 08/03/2019 Discontinued (ALDACTONE) 25 MG EVERY DAY 020 tablet spironolactone TAKE 1 TABLET 90 tablet 0 09/27/2019 Discontinued (ALDACTONE) 25 MG EVERY DAY 020 tablet sacubitriL-valsartan Take 1 tablet 180 tablet 2 09/29/201901/03 Discontinued (ENTRESTO) 49-51 mg by mouth 2 020 (Reorder) tablet per tablet (two) times a day for 270 days. torsemide (DEMADEX) Take 1 tablet 90 tablet 2 10/11/201906/04 Discontinued 20 MG tablet (20 mg total) 021 by mouth daily for 270 days. carvediloL (Coreg) 25 Take 1 tablet 60 tablet 8 10/11/201922/06 Discontinued MG tabletIndications: (25 mg total) 020 (Reorder) Chronic combined by mouth 2 systolic and (two) times a diastolic congestive day for 270 heart failure (HCC) days. carvediloL (Coreg) 25 Take 0.5 30 tablet 8 12/21/2019 Discontinued MG tabletIndications: tablets (12.5 021 Chronic combined mg total) by systolic and mouth 2 (two) diastolic congestive times a day heart failure (HCC) for 270 days. sotaloL (BETAPACE) 80 Take 1.5 135 tablet 0 12/21/2019 MG tabletIndications: tablets (120 020 Non-ischemic mg total) by cardiomyopathy (HCC), mouth daily Chronic combined for 90 days. systolic and diastolic congestive heart failure (HCC), Heart transplant candidate, Chronic systolic congestive heart failure (HCC), Secondary hypertension Additional Information Patient taking differently: 80 mg oral daily, Prescribed 120, takes 80 mg once daily, Reported on 03/21/2020 spironolactone TAKE 1 TABLET 90 tablet 0 03/09/2020 05/10/2020 Discontinued (ALDACTONE) 25 MG EVERY DAY tablet Active Problems Patient Care Coordination Note Formatting of this note might be differe nt from the original. Listed Status 6 for Heart TXP 01/24/2016 Will be downgraded on 02/20/2020 MRB Outcome/Date: Approved DX: Non-Ischemic Cardiomyopathy Blood type: O neg CMV : Positive 2014 Pre Brake Engineer: Sonia dennis RN AICD: Medtronic DOI: 09/15/2014 MODE:DDDR FLAGS: Date Event/ Occurrence # Outcome/ Treatm ent D/C Location PRE Goal INR POST Goal INR In range prior to event? Lab Location: Phone: Fax: Prior Authorizations: Pharmacy Benefits: BIN: PCN: GRP: ID: Problem Noted Date Heart failure 08/02/2018 Overview: Added automatically from request for martin murphy [id number] Cardiomyopathy 08/02/2018 Overview: Added automatically from request for martin perezy [id number] Type 2 diabetes mellitus with hyperglycemia, without l lawrence-term current use 11/11/2017 of insulin Chronic combined systolic and diastolic congestive hea rt failure 07/20/2017 Overview: Added automatically from request for martin murphy [id number] Secondary hypertension 01/07/2017 Non-ischemic cardiomyopathy 04/23/2016 Encounters Date Type Specialty Care Team Description 06/07/2020 Travel 06/01/2020 Refill Transplant Mirna, Med Refill MD Ovidio 05/07/2020 Refill Transplant Mirna, Med Refill MD Ovidio 04/12/2020 Documentation Cardiology Traci Low NP 04/12/2020 Remote Monitoring Transplant Traci Low NP 04/03/2020 Travel 04/03/2020 Telephone Transplant Chantell, discussion of Sonia Lilly RN referral to gertrude mchugh (discussion of referral to [facility] ) 04/02/2020 Documentation Transplant Sonia Abdul RN 03/22/2020 Telephone Transplant Chantell, email to remind Sonia Lilly RN patient to co ntact referrals for f ambika up (email to mik tomas ) 03/21/2020 Nutrition Transplant Ovidio Bradley MD 03/21/2020 Social Work Transplant Ovidio Bradley MD Buckley, Emily, LCSW 03/21/2020 Office Visit Transplant Mirna, Type 2 diabetes mellitus with hyperglycemia, without long-term current use of insulin (HCC) (Primary Dx); MD Ovidio Chronic combined systolic and diastolic congestive heart failure (HCC); Trachtenberg, Non-ischemic c ardiomyopathy (HCC); MD Martin Heart transplan t candidate; Secondary hyper tension; Chronic systoli c congestive heart failure (HCC) 03/21/2020 Refill Transplant Mirna, Med Refill MD Ovidio 03/21/2020 Travel 03/20/2020 Orders Only Transplant Abdul, Heart transplan t candidate (Primary Dx); Sonia Lilly RN Non-ischemic cardiomyopathy (HCC); Chronic combine d systolic and diastolic congestive heart failure (HCC); Secondary hyper tension; Chronic systoli c congestive heart failure (HCC) 03/19/2020 Travel 03/16/2020 Travel 03/09/2020 Refill Transplant Mirna, Med Refill MD Ovidio 02/29/2020 Travel 02/27/2020 Telephone Transplant Chantell, informing we elizabeth ve to Sonia Lilly RN reschedule du e to the MD schedule (informing we h ave to reschedule deb ue to the MD schedule ) 02/17/2020 Remote Monitoring Cardiology Traci Low, Ajith combined [employer] systolic and diastolic conge stive heart failure ( HCC) 02/16/2020 Documentation Transplant Sonia Abdul RN 12/26/2019 Documentation Transplant Bonita Mcclain RN 12/26/2019 Documentation Transplant Sonia Abdul RN 12/26/2019 Telephone Transplant Chantell, follow up to johann Lilly RN sure patient understands medication chica me (follow up to gerhard campbell sure patient understands medication chica me); Heart transplan t discussion, age (Heart transpla nt discussion, age ) 12/26/2019 Telephone Transplant Chantell, bp log and well nestaisha Lilly RN check (MEMS R eading high, following up - vitals and MEMS reading for medication adjustments ) 12/23/2019 Documentation Transplant Sonia Abdul RN 12/22/2019 Remote Monitoring Cardiology Traci Low, Ajith combined [employer] systolic and diastolic conge stive heart failure ( HCC) 12/21/2019 Hospital Encounter Radiology Mirna, Non-ische rosio cardiomyopathy (HCC); MD Ovidio Chronic combine d systolic and diastolic congestive heart failure (HCC); Combined systol ic and diastolic heart failure, unspecified HF chronicity (HCC); Type 2 diabetes mellitus with hyperglycemia, without long-term current use of insulin (HCC); Secondary hyper tension; Heart transplan t candidate 12/21/2019 Hospital Encounter Radiology Bhimaraj, Non-ische rosio cardiomyopathy (HCC); MD Ovidio Chronic combine d systolic and diastolic congestive heart failure (HCC); Combined systol ic and diastolic heart failure, unspecified HF chronicity (HCC); Type 2 diabetes mellitus with hyperglycemia, without long-term current use of insulin (HCC); Secondary hyper tension; Heart transplan t candidate 12/21/2019 Hospital Encounter Radiology Bhimaraj, Non-ische rosio cardiomyopathy (HCC); MD Ovidio Chronic combine d systolic and diastolic congestive heart failure (HCC); Combined systol ic and diastolic heart failure, unspecified HF chronicity (HCC); Type 2 diabetes mellitus with hyperglycemia, without long-term current use of insulin (HCC); Secondary hyper tension; Heart transplan t candidate 12/21/2019 Hospital Encounter Pulmonology [facility], SOB (denia caro of MD Ovidio breath) 12/21/2019 Office Visit Transplant Bhimaraj, Non-ischemic ca rdiomyopathy (HCC) (Primary Dx); MD Ovidio Chronic combined systolic and diastolic congestive heart failure (HCC); Joslyn Fernández, Heart transp lant candidate 12/21/2019 Refill Transplant Bhimaraj, Med Refill MD Ovidio 12/21/2019 Documentation Transplant Sonia Abdul, CELESTINA 12/21/2019 Refill Transplant Abdul, Med Refill Sonia Lilly, CELESTINA 12/21/2019 Refill Transplant Abdul, Med Refill Sonia Lilly, RN 12/21/2019 Telephone Transplant Abdul, clinic today Sonia Lilly RN 12/21/2019 Travel 12/20/2019 Telephone Transplant Kris, Sandip Estrada g & Cayla Clinic Visit: 12/21/19 12/20/2019 Travel 12/20/2019 Telephone Transplant Chantell, pre clinic jonathan Lilly director river restoration an d discussion (pre clinic covid screening and discussion) 12/20/2019 Orders Only Transplant Abdul, Heart transplan t candidate (Primary Dx); Sonia Lilly RN Non-ischemic cardiomyopathy (HCC); Chronic combine d systolic and diastolic congestive heart failure (HCC); Combined systol ic and diastolic heart failure, unspecified HF chronicity (HCC); Type 2 diabetes mellitus with hyperglycemia, without long-term current use of insulin (HCC); Secondary hyper tension 11/10/2019 Remote Monitoring Cardiology Traci Low, Chronic combined [employer] systolic and diastolic conge stive heart failure ( HCC) 10/07/2019 Telephone Transplant Brittany Finney, Med Refill MA 09/29/2019 Transplant Cardiology Traci Low, Chronic comb ined Telemedicine [employer] systolic and diastolic conge stive heart failure ( HCC) 09/29/2019 Telephone Transplant Cherrie Mackenzie RX Refill R equfaizan Molina, JOHANN 09/26/2019 Refill Transplant Mirna, Med Refill MD Ovidio 09/14/2019 Office Visit Transplant Mirna, Non-ischemic ca rdiomyopathy (HCC) (Primary Dx); MD Ovidio Chronic combined systolic and diastolic congestive heart failure (HCC); Amado, Secondary hype rtension; MD Martin Heart transplan t candidate 09/14/2019 Travel 07/29/2019 Refill Transplant Bharatimar[place]rooke, Med Refill MD Ovidio 06/15/2019 Hospital Encounter Procedural Mirna Chronic c ombined Cardiology MD Ovidio systolic and diastolic conge stive heart failure ( HCC) 06/15/2019 Office Visit Transplant Bharatlaronoscar, Chronic combine d systolic and diastolic congestive heart failure (HCC); MD Ovidio Non-ischemic cardiomyopathy (HCC); Joslyn Fernández, Heart transp lant candidate MD after 06/12/2019 Immunizations Name Administration Dates Next Due Pneumococcal Conjugate 13-Valent 02/13/2017 Surgical History Surgery Date Site/Laterality Comments CARDIAC ELECTROPHYSIOLOGY PROCEDURE BULLECTOMY Left CARDIAC CATHETERIZATION CARDIAC DEFIBRILLATOR PLACEMENT INSERT / REPLACE / REMOVE 05/04/2005 - PACEMAKER 05/03/2006 CARDIAC CATHETERIZATION 10/09/2017 N/A Procedur e: Cv right heart cath; Martin geon: Armida Crabtree MD; Location: [facility] Invasive Locatio n; Service: Cardiovascular; Laterality: N/A; Cardio Mems read ing evaluation CARDIAC CATHETERIZATION 10/28/2018 N/A Procedur e: Cv right heart cath; Martin geon: Ovidio Bradley MD; Location: [facility]ender Invasive Loc ation; Service: Cardio logy; Laterality: N/A; Listed status 6 CARDIAC CATHETERIZATION 06/08/2019 N/A Procedur e: Right heart cath; Surgeon: Agustin Hansen M D; Location: [facility] C[facility] Tender Invasive Loc ation; Service: Cardiovascular; Laterality: N/A; Listed status 6 Medical History Medical History Date Comments Non-ischemic cardiomyopathy (HCC) Hypothyroidism Hypertension Graves' disease Cancer (HCC) Basal cell carcinoma of arm Hyperlipemia CHF (congestive heart failure) (HCC) Diabetes mellitus (HCC) Family History Medical History Relation Name Comments Stroke Father Emphysema Mother Relation Name Status Comments Father Mother Social History Tobacco Use Types Packs/Day Years Used Date Former Smoker 1 15 Smokeless Tobacco: Never Used Alcohol Use Drinks/Week oz/Week Comments No Sex Assigned at Date Recorded Not on file Job Start Date Occupation Industry Not on file Not on file Not on file COVID-19 Exposure Response Date Recorded In the last month, have you been in contact with No / Unsure 06/07/2020 10:53 AM PACKAGING TECHNICIAN someone who was confirmed or suspected to have Coronavirus / COVID-19? Last Filed Vital Signs Vital Sign Reading Time Taken Comments Blood Pressure 94/51 03/21/2020 8:08 AM PACKAGING TECHNICIAN Pulse 73 03/21/2020 8:08 AM PACKAGING TECHNICIAN Temperature 36.2 C (97.2 F) 03/21/2020 8:08 AM PACKAGING TECHNICIAN Respiratory Rate 17 03/21/2020 8:08 AM PACKAGING TECHNICIAN Oxygen Saturation 97% 03/21/2020 8:08 AM PACKAGING TECHNICIAN Inhaled Oxygen Concentration - - Weight 96.2 kg (212 lb 1.6 oz) 03/21/2020 8:08 AM PACKAGING TECHNICIAN Height 182.9 cm (6') 03/21/2020 8:08 AM PACKAGING TECHNICIAN Body Mass Index 28.77 03/21/2020 8:08 AM PACKAGING TECHNICIAN Plan of Treatment Date Type Specialty Care Team Description 06/20/2020 Appointment Procedural Cardiology Ovidio Bradley MD [address] [place], [place] [address] [phone] 07/24/2020 Office Visit Cardiology Hari Fischer MD [address] [place], [place] [address] [phone] Health Maintenance Due Date Last Done Comments DIABETES: RETINAL EYE EXAM 11/15/1959 DIABETIC FOOT EXAM 11/15/1959 COVID-19 VACCINE (1 of 2) 1965 COLONOSCOPY SCREENING 11/15/1999 SHINGLES VACCINES (#1) 11/15/1999 65+ PNEUMOCOCCAL VACCINE (2 of 2 - 02/13/2018 02/13/2017 PPSV23) INFLUENZA VACCINE 12/03/2019 06/16/2018, 04/16/2018, 04/16/2018, Additional history exists HEPATITIS C SCREENING Completed 12/21/2019, 05/17/2014 Implants Implanted Type Area Pediatric Anesthesiologist Device Shelf Model / Identifier Expiration Serial / Date Lot Defibrillator Defibrillator ME DTRONIC / Icd Devices ICD Devices / Procedures Procedure Name Priority Date/Time Associated Diagnosis Comme nts ECG 12-LEAD Routine 03/21/2020 8:06 Chronic combined Results for this AM PACKAGING TECHNICIAN systolic and procedure are i n diastolic congestive the res ults heart failure (H CC) section. Non-ischemic cardiomyopathy ( HCC) Heart transplant candidate HC COMPLETE BLD COUNT Routine 03/21/2020 7:57 Non-ischemic Re sults for this W/AUTO DIFF AM PACKAGING TECHNICIAN cardiomyopathy ( HCC) procedure are in Chronic combined the results systolic and section. diastolic congestive heart failure (H CC) Heart transplant candidate Secondary hypertension Chronic systolic congestive heart failure (HCC) HEMOGLOBIN A1C Routine 03/21/2020 7:57 Non-ischemic Results f or this AM PACKAGING TECHNICIAN cardiomyopathy ( HCC) procedure are in Chronic combined the results systolic and section. diastolic congestive heart failure (H CC) Heart transplant candidate Secondary hypertension Chronic systolic congestive heart failure (HCC) ESTIMATED GFR Routine 03/21/2020 7:53 Results fo r this AM PACKAGING TECHNICIAN procedure are i n the results section. PHOSPHORUS LEVEL Routine 03/21/2020 7:53 Non-ischemic Results for this AM PACKAGING TECHNICIAN cardiomyopathy ( HCC) procedure are in Chronic combined the results systolic and section. diastolic congestive heart failure (H CC) Heart transplant candidate Secondary hypertension Chronic systolic congestive heart failure (HCC) MAGNESIUM LEVEL Routine 03/21/2020 7:53 Non-ischemic Results for this AM PACKAGING TECHNICIAN cardiomyopathy ( HCC) procedure are in Chronic combined the results systolic and section. diastolic congestive heart failure (H CC) Heart transplant candidate Secondary hypertension Chronic systolic congestive heart failure (HCC) COMPREHENSIVE METABOLIC Routine 03/21/2020 7:53 Non-ischemic Results for this PANEL AM PACKAGING TECHNICIAN cardiomyopathy ( HCC) procedure are in Chronic combined the results systolic and section. diastolic congestive heart failure (H CC) Heart transplant candidate Secondary hypertension Chronic systolic congestive heart failure (HCC) THYROID STIMULATING Routine 03/21/2020 7:53 Non-ischemic Resu lts for this HORMONE AM PACKAGING TECHNICIAN cardiomyopathy ( HCC) procedure are in Chronic combined the results systolic and section. diastolic congestive heart failure (H CC) Heart transplant candidate Secondary hypertension Chronic systolic congestive heart failure (HCC) T4, FREE Routine 03/21/2020 7:53 Non-ischemic Results for this AM PACKAGING TECHNICIAN cardiomyopathy ( HCC) procedure are in Chronic combined the results systolic and section. diastolic congestive heart failure (H CC) Heart transplant candidate Secondary hypertension Chronic systolic congestive heart failure (HCC) T3 Routine 03/21/2020 7:53 Non-ischemic Results for this AM PACKAGING TECHNICIAN cardiomyopathy ( HCC) procedure are in Chronic combined the results systolic and section. diastolic congestive heart failure (H CC) Heart transplant candidate Secondary hypertension Chronic systolic congestive heart failure (HCC) NT-PROBNP Routine 03/21/2020 7:53 Non-ischemic Results for this AM PACKAGING TECHNICIAN cardiomyopathy ( HCC) procedure are in Chronic combined the results systolic and section. diastolic congestive heart failure (H CC) Heart transplant candidate Secondary hypertension Chronic systolic congestive heart failure (HCC) CT HEAD WO CONTRAST Routine 12/21/2019 3:30 Non-ischemic Resu lts for this PM CDT cardiomyopathy ( HCC) procedure are in Chronic combined the results systolic and section. diastolic congestive heart failure (H CC) Combined systolic and diastolic heart failure, unspecified HF chronicity (H CC) Type 2 diabetes mellitus with hyperglycemia, without long-term current use of insulin (HCC) Secondary hypertension Heart transplant candidate CT CHEST WO CONTRAST Routine 12/21/2019 3:00 Non-ischemic Res ults for this ABDOMEN WO CONTRAST PM CDT cardiomyopat hy (HCC) procedure are in PELVIS WO CONTRAST Chronic combined the r esults systolic and section. diastolic congestive heart failure (H CC) Combined systolic and diastolic heart failure, unspecified HF chronicity (H CC) Type 2 diabetes mellitus with hyperglycemia, without long-term current use of insulin (HCC) Secondary hypertension Heart transplant candidate XR PANOREX Routine 12/21/2019 12:46 Non-ischemic Results for this PM CDT cardiomyopathy ( HCC) procedure are in Chronic combined the results systolic and section. diastolic congestive heart failure (H CC) Combined systolic and diastolic heart failure, unspecified HF chronicity (H CC) Type 2 diabetes mellitus with hyperglycemia, without long-term current use of insulin (HCC) Secondary hypertension Heart transplant candidate SIX MINUTE WALK W/ Routine 12/21/2019 12:16 SOB (shortness of Results for this PULSE OXIMETRY PM CDT breath) procedure are in the results section. SPIROMETRY, DIFFUSION Routine 12/21/2019 12:13 SOB (shortness of Results for this PM CDT breath) procedure are i n the results section. ECG 12-LEAD Routine 12/21/2019 10:16 Chronic combined Results for this AM CDT systolic and procedure are i n diastolic congestive the res ults heart failure (H CC) section. Non-ischemic cardiomyopathy ( HCC) Heart transplant candidate BILIRUBIN DIRECT Routine 12/21/2019 9:50 Results for this AM CDT procedure are i n the results section. ESTIMATED GFR Routine 12/21/2019 9:50 Results fo r this AM CDT procedure are i n the results section. LOIS BASS VIRUS Routine 12/21/2019 9:50 Non-ischemic Resul ts for this (EBV) BY PCR AM CDT cardiomyopathy ( HCC) procedure are in Chronic combined the results systolic and section. diastolic congestive heart failure (H CC) Combined systolic and diastolic heart failure, unspecified HF chronicity (H CC) Type 2 diabetes mellitus with hyperglycemia, without long-term current use of insulin (HCC) Secondary hypertension Heart transplant candidate THYROID STIMULATING Routine 12/21/2019 9:50 Non-ischemic Resu lts for this HORMONE AM CDT cardiomyopathy ( HCC) procedure are in Chronic combined the results systolic and section. diastolic congestive heart failure (H CC) Combined systolic and diastolic heart failure, unspecified HF chronicity (H CC) Type 2 diabetes mellitus with hyperglycemia, without long-term current use of insulin (HCC) Secondary hypertension Heart transplant candidate TOXOPLASMA IGM AB Routine 12/21/2019 9:50 Non-ischemic Result s for this AM CDT cardiomyopathy ( HCC) procedure are in Chronic combined the results systolic and section. diastolic congestive heart failure (H CC) Combined systolic and diastolic heart failure, unspecified HF chronicity (H CC) Type 2 diabetes mellitus with hyperglycemia, without long-term current use of insulin (HCC) Secondary hypertension Heart transplant candidate TOXOPLASMA GONDII Routine 12/21/2019 9:50 Non-ischemic Result s for this ANTIBODY, IGG AM CDT cardiomyopathy ( HCC) procedure are in Chronic combined the results systolic and section. diastolic congestive heart failure (H CC) Combined systolic and diastolic heart failure, unspecified HF chronicity (H CC) Type 2 diabetes mellitus with hyperglycemia, without long-term current use of insulin (HCC) Secondary hypertension Heart transplant candidate CYTOMEGALOVIRUS AB, IGM Routine 12/21/2019 9:50 Non-ischemic Results for this AM CDT cardiomyopathy ( HCC) procedure are in Chronic combined the results systolic and section. diastolic congestive heart failure (H CC) Combined systolic and diastolic heart failure, unspecified HF chronicity (H CC) Type 2 diabetes mellitus with hyperglycemia, without long-term current use of insulin (HCC) Secondary hypertension Heart transplant candidate CYTOMEGALOVIRUS AB, IGG Routine 12/21/2019 9:50 Non-ischemic Results for this AM CDT cardiomyopathy ( HCC) procedure are in Chronic combined the results systolic and section. diastolic congestive heart failure (H CC) Combined systolic and diastolic heart failure, unspecified HF chronicity (H CC) Type 2 diabetes mellitus with hyperglycemia, without long-term current use of insulin (HCC) Secondary hypertension Heart transplant candidate HEPATITIS A ANTIBODY Routine 12/21/2019 9:50 Non-ischemic Res ults for this TOTAL AM CDT cardiomyopathy ( HCC) procedure are in Chronic combined the results systolic and section. diastolic congestive heart failure (H CC) Combined systolic and diastolic heart failure, unspecified HF chronicity (H CC) Type 2 diabetes mellitus with hyperglycemia, without long-term current use of insulin (HCC) Secondary hypertension Heart transplant candidate HEPATITIS B CORE Routine 12/21/2019 9:50 Non-ischemic Results for this ANTIBODY TOTAL AM CDT cardiomyopathy ( HCC) procedure are in Chronic combined the results systolic and section. diastolic congestive heart failure (H CC) Combined systolic and diastolic heart failure, unspecified HF chronicity (H CC) Type 2 diabetes mellitus with hyperglycemia, without long-term current use of insulin (HCC) Secondary hypertension Heart transplant candidate HEPATITIS B SURFACE Routine 12/21/2019 9:50 Non-ischemic Resu lts for this ANTIBODY AM CDT cardiomyopathy ( HCC) procedure are in Chronic combined the results systolic and section. diastolic congestive heart failure (H CC) Combined systolic and diastolic heart failure, unspecified HF chronicity (H CC) Type 2 diabetes mellitus with hyperglycemia, without long-term current use of insulin (HCC) Secondary hypertension Heart transplant candidate HEPATITIS ACUTE PANEL Routine 12/21/2019 9:50 Non-ischemic Re sults for this AM CDT cardiomyopathy ( HCC) procedure are in Chronic combined the results systolic and section. diastolic congestive heart failure (H CC) Combined systolic and diastolic heart failure, unspecified HF chronicity (H CC) Type 2 diabetes mellitus with hyperglycemia, without long-term current use of insulin (HCC) Secondary hypertension Heart transplant candidate HIV AG/AB COMBINATION Routine 12/21/2019 9:50 Non-ischemic Re sults for this AM CDT cardiomyopathy ( HCC) procedure are in Chronic combined the results systolic and section. diastolic congestive heart failure (H CC) Combined systolic and diastolic heart failure, unspecified HF chronicity (H CC) Type 2 diabetes mellitus with hyperglycemia, without long-term current use of insulin (HCC) Secondary hypertension Heart transplant candidate LDH Routine 12/21/2019 9:50 Non-ischemic Results for this AM CDT cardiomyopathy ( HCC) procedure are in Chronic combined the results systolic and section. diastolic congestive heart failure (H CC) Combined systolic and diastolic heart failure, unspecified HF chronicity (H CC) Type 2 diabetes mellitus with hyperglycemia, without long-term current use of insulin (HCC) Secondary hypertension Heart transplant candidate PREALBUMIN LEVEL Routine 12/21/2019 9:50 Non-ischemic Results for this AM CDT cardiomyopathy ( HCC) procedure are in Chronic combined the results systolic and section. diastolic congestive heart failure (H CC) Combined systolic and diastolic heart failure, unspecified HF chronicity (H CC) Type 2 diabetes mellitus with hyperglycemia, without long-term current use of insulin (HCC) Secondary hypertension Heart transplant candidate SYPHILIS TOTAL ANTIBODY Routine 12/21/2019 9:50 Non-ischemic Results for this AM CDT cardiomyopathy ( HCC) procedure are in Chronic combined the results systolic and section. diastolic congestive heart failure (H CC) Combined systolic and diastolic heart failure, unspecified HF chronicity (H CC) Type 2 diabetes mellitus with hyperglycemia, without long-term current use of insulin (HCC) Secondary hypertension Heart transplant candidate T4, FREE Routine 12/21/2019 9:50 Non-ischemic Results for this AM CDT cardiomyopathy ( HCC) procedure are in Chronic combined the results systolic and section. diastolic congestive heart failure (H CC) Combined systolic and diastolic heart failure, unspecified HF chronicity (H CC) Type 2 diabetes mellitus with hyperglycemia, without long-term current use of insulin (HCC) Secondary hypertension Heart transplant candidate T4 Routine 12/21/2019 9:50 Non-ischemic Results for this AM CDT cardiomyopathy ( HCC) procedure are in Chronic combined the results systolic and section. diastolic congestive heart failure (H CC) Combined systolic and diastolic heart failure, unspecified HF chronicity (H CC) Type 2 diabetes mellitus with hyperglycemia, without long-term current use of insulin (HCC) Secondary hypertension Heart transplant candidate T3 Routine 12/21/2019 9:50 Non-ischemic Results for this AM CDT cardiomyopathy ( HCC) procedure are in Chronic combined the results systolic and section. diastolic congestive heart failure (H CC) Combined systolic and diastolic heart failure, unspecified HF chronicity (H CC) Type 2 diabetes mellitus with hyperglycemia, without long-term current use of insulin (HCC) Secondary hypertension Heart transplant candidate PARTIAL THROMBOPLASTIN Routine 12/21/2019 9:50 Non-ischemic R esults for this TIME (PTT) AM CDT cardiomyopathy ( HCC) procedure are in Chronic combined the results systolic and section. diastolic congestive heart failure (H CC) Combined systolic and diastolic heart failure, unspecified HF chronicity (H CC) Type 2 diabetes mellitus with hyperglycemia, without long-term current use of insulin ([facility]) Secondary hypertension Heart transplant candidate PROTHROMBIN TIME WITH Routine 12/21/2019 9:50 Non-ischemic Re sults for this INR AM CDT cardiomyopathy ( HCC) procedure are in Chronic combined the results systolic and section. diastolic congestive heart failure (H CC) Combined systolic and diastolic heart failure, unspecified HF chronicity (H CC) Type 2 diabetes mellitus with hyperglycemia, without long-term current use of insulin (HCC) Secondary hypertension Heart transplant candidate HEMOGLOBIN A1C Routine 12/21/2019 9:50 Chronic combined Resul ts for this AM CDT systolic and procedure are i n diastolic congestive the res ults heart failure (H CC) section. Non-ischemic cardiomyopathy ( HCC) Heart transplant candidate Type 2 diabetes mellitus with hyperglycemia, without long-term current use of insulin ([facility]) DIGOXIN LEVEL Routine 12/21/2019 9:50 Chronic combined Result s for this AM CDT systolic and procedure are i n diastolic congestive the res ults heart failure (H CC) section. Non-ischemic cardiomyopathy ( HCC) Heart transplant candidate URIC ACID LEVEL Routine 12/21/2019 9:50 Chronic combined Resu lts for this AM CDT systolic and procedure are i n diastolic congestive the res ults heart failure (H CC) section. Non-ischemic cardiomyopathy ( HCC) Heart transplant candidate MAGNESIUM LEVEL Routine 12/21/2019 9:50 Chronic combined Resu lts for this AM CDT systolic and procedure are i n diastolic congestive the res ults heart failure (H CC) section. Non-ischemic cardiomyopathy ( HCC) Heart transplant candidate NICOTINE AND COTININE, Routine 12/21/2019 9:50 Chronic combin ed Results for this SERUM AM CDT systolic and procedure are i n diastolic congestive the res ults heart failure (H CC) section. Non-ischemic cardiomyopathy ( HCC) Heart transplant candidate LIPID PANEL Routine 12/21/2019 9:50 Chronic combined Results for this AM CDT systolic and procedure are i n diastolic congestive the res ults heart failure (H CC) section. Non-ischemic cardiomyopathy ( HCC) Heart transplant candidate B NATRIURETIC PEPTIDE Routine 12/21/2019 9:50 Chronic combine d Results for this AM CDT systolic and procedure are i n diastolic congestive the res ults heart failure (H CC) section. Non-ischemic cardiomyopathy ( HCC) Heart transplant candidate COMPREHENSIVE METABOLIC Routine 12/21/2019 9:50 Chronic combi alena Results for this PANEL AM CDT systolic and procedure are i n diastolic congestive the res ults heart failure (H CC) section. Non-ischemic cardiomyopathy ( HCC) Heart transplant candidate CBC WITH PLATELET AND Routine 12/21/2019 9:50 Chronic combine d Results for this DIFFERENTIAL AM CDT systolic and procedure are i n diastolic congestive the res ults heart failure (H CC) section. Non-ischemic cardiomyopathy ( HCC) Heart transplant candidate NT-PROBNP Routine 09/14/2019 11:15 Results for this AM CDT procedure are i n the results section. ESTIMATED GFR Routine 09/14/2019 11:15 Results fo r this AM CDT procedure are i n the results section. HEMOGLOBIN A1C Routine 09/14/2019 11:15 Chronic combined Resul ts for this AM CDT systolic and procedure are i n diastolic congestive the res ults heart failure (H CC) section. Non-ischemic cardiomyopathy ( HCC) Heart transplant candidate Type 2 diabetes mellitus with hyperglycemia, without long-term current use of insulin ([facility]) DIGOXIN LEVEL Routine 09/14/2019 11:15 Chronic combined Result s for this AM CDT systolic and procedure are i n diastolic congestive the res ults heart failure (H CC) section. Non-ischemic cardiomyopathy ( HCC) Heart transplant candidate URIC ACID LEVEL Routine 09/14/2019 11:15 Chronic combined Resu lts for this AM CDT systolic and procedure are i n diastolic congestive the res ults heart failure (H CC) section. Non-ischemic cardiomyopathy ( HCC) Heart transplant candidate MAGNESIUM LEVEL Routine 09/14/2019 11:15 Chronic combined Resu lts for this AM CDT systolic and procedure are i n diastolic congestive the res ults heart failure (H CC) section. Non-ischemic cardiomyopathy ( HCC) Heart transplant candidate NICOTINE AND COTININE, Routine 09/14/2019 11:15 Chronic combin ed Results for this SERUM AM CDT systolic and procedure are i n diastolic congestive the res ults heart failure (H CC) section. Non-ischemic cardiomyopathy ( HCC) Heart transplant candidate LIPID PANEL Routine 09/14/2019 11:15 Chronic combined Results for this AM CDT systolic and procedure are i n diastolic congestive the res ults heart failure (H CC) section. Non-ischemic cardiomyopathy ( HCC) Heart transplant candidate B NATRIURETIC PEPTIDE Routine 09/14/2019 11:15 Chronic combine d Results for this AM CDT systolic and procedure are i n diastolic congestive the res ults heart failure (H CC) section. Non-ischemic cardiomyopathy ( HCC) Heart transplant candidate COMPREHENSIVE METABOLIC Routine 09/14/2019 11:15 Chronic combi alena Results for this PANEL AM CDT systolic and procedure are i n diastolic congestive the res ults heart failure (H CC) section. Non-ischemic cardiomyopathy ( HCC) Heart transplant candidate HC COMPLETE BLD COUNT Routine 09/14/2019 11:15 Chronic combine d Results for this W/AUTO DIFF AM CDT systolic and procedure are i n diastolic congestive the res ults heart failure (H CC) section. Non-ischemic cardiomyopathy ( HCC) Heart transplant candidate ECG 12-LEAD Routine 09/14/2019 10:06 Chronic combined Results for this AM CDT systolic and procedure are i n diastolic congestive the res ults heart failure (H CC) section. Non-ischemic cardiomyopathy ( HCC) Heart transplant candidate TTE COMPLETE, WO Routine 06/15/2019 1:56 Chronic combined Res ults for this CONTRAST, W DOPPLER PM PACKAGING TECHNICIAN systolic and procedur e are in ([id number]) diastolic congestive the res ults heart failure (HCC) section. ECG 12-LEAD Routine 06/15/2019 11:26 Chronic combined Results for this AM PACKAGING TECHNICIAN systolic and procedure are i n diastolic congestive the res ults heart failure (H CC) section. Non-ischemic cardiomyopathy ( HCC) Heart transplant candidate SINGLE ANTIGEN BEADS Routine 06/15/2019 10:59 Res ults for this AM PACKAGING TECHNICIAN procedure are i n the results section. NT-PROBNP Routine 06/15/2019 10:59 Results for this AM PACKAGING TECHNICIAN procedure are i n the results section. ESTIMATED GFR Routine 06/15/2019 10:59 Results fo r this AM PACKAGING TECHNICIAN procedure are i n the results section. DIGOXIN LEVEL Routine 06/15/2019 10:59 Chronic combined Result s for this AM PACKAGING TECHNICIAN systolic and procedure are i n diastolic congestive the res ults heart failure (H CC) section. Non-ischemic cardiomyopathy ( HCC) Heart transplant candidate URIC ACID LEVEL Routine 06/15/2019 10:59 Chronic combined Resu lts for this AM PACKAGING TECHNICIAN systolic and procedure are i n diastolic congestive the res ults heart failure (H CC) section. Non-ischemic cardiomyopathy ( HCC) Heart transplant candidate MAGNESIUM LEVEL Routine 06/15/2019 10:59 Chronic combined Resu lts for this AM PACKAGING TECHNICIAN systolic and procedure are i n diastolic congestive the res ults heart failure (H CC) section. Non-ischemic cardiomyopathy ( HCC) Heart transplant candidate NICOTINE AND COTININE, Routine 06/15/2019 10:59 Chronic combin ed Results for this SERUM AM PACKAGING TECHNICIAN systolic and procedure are i n diastolic congestive the res ults heart failure (H CC) section. Non-ischemic cardiomyopathy ( HCC) Heart transplant candidate LIPID PANEL Routine 06/15/2019 10:59 Chronic combined Results for this AM PACKAGING TECHNICIAN systolic and procedure are i n diastolic congestive the res ults heart failure (H CC) section. Non-ischemic cardiomyopathy ( HCC) Heart transplant candidate B NATRIURETIC PEPTIDE Routine 06/15/2019 10:59 Chronic combine d Results for this AM PACKAGING TECHNICIAN systolic and procedure are i n diastolic congestive the res ults heart failure (H CC) section. Non-ischemic cardiomyopathy ( HCC) Heart transplant candidate COMPREHENSIVE METABOLIC Routine 06/15/2019 10:59 Chronic combi alena Results for this PANEL AM PACKAGING TECHNICIAN systolic and procedure are i n diastolic congestive the res ults heart failure (H CC) section. Non-ischemic cardiomyopathy ( HCC) Heart transplant candidate HC COMPLETE BLD COUNT Routine 06/15/2019 10:59 Chronic combine d Results for this W/AUTO DIFF AM PACKAGING TECHNICIAN systolic and procedure are i n diastolic congestive the res ults heart failure (H CC) section. Non-ischemic cardiomyopathy ( HCC) Heart transplant candidate HEMOGLOBIN A1C Routine 06/15/2019 10:59 Chronic combined Resul ts for this AM PACKAGING TECHNICIAN systolic and procedure are i n diastolic congestive the res ults heart failure (H CC) section. Non-ischemic cardiomyopathy ( HCC) Type 2 diabetes mellitus with hyperglycemia, without long-term current use of insulin (HCC) after 06/12/2019 Results ECG 12 lead (03/21/2020 8:06 AM PACKAGING TECHNICIAN)Only the most recent of4 resultswithin the time period is included. Pathologist Sig nature Ventricular rate 78 [facility] Atrial rate 78 [facility] GA interval 150 [facility] QRSD interval 194 [facility] QT interval 480 [facility] QTC interval 547 [facility] QRS axis 1 -69 [facility] T wave axis 127 [facility] EKG impression AV dual-paced [facility] rhythm-Biventricular pacemaker detected-Abnormal ECG-In automated comparison with ECG of 21-DEC-2019 10:16,-premature ventricular complexes are no longer present- Specimen Narrative Performed At This result has an attachment that is no t available. Performing Organization Address City/State/[facility] Code Phon e Number [facility] MUSE [address] [place] [address] CBC with platelet and differential (03/21/2020 7:57 AM PACKAGING TECHNICIAN)Only the most recent of4 resultswithin the time period is included. WBC 7.47 4.50 - 11.00 [facility] k/uL HOSPITAL RBC 4.92 4.40 - 6.00 [facility] HGB 14.8 14.0 - 18.0 [facility] g/dL [facility] HCT 45.9 41.0 - 51.0 % [facility] MCV 93.3 82.0 - 100.0 [facility] MCH 30.1 27.0 - 34.0 pg [facility] MCHC 32.2 31.0 - 37.0 [facility] g/[facility] RDW - SD 43.8 37.0 - 55.0 fL [facility] MPV 12.0 8.8 - 13.2 fL [facility] Platelet count 162 150 - 400 k/uL [facility] Nucleated RBC 0.00 /100 WBC [facility] Neutrophils 68.9 39.0 - 69.0 % [facility] Lymphocytes 21.2 (L) 25.0 - 45.0 % [facility] Monocytes 6.3 0.0 - 10.0 % [facility] Eosinophils 2.5 0.0 - 5.0 % [facility] Basophils 0.8 0.0 - 1.0 % [facility] Immature granulocytes 0.3Comment: 0.0 - 1.0 % [facility] "Immature HOSPITAL granulocytes" (promyelocytes , myelocytes, metamyelocytes ) Specimen Plasma Performing Organization Address City/[facility] Phon e Number [facility] DEPARTMENT OF PATHOLOGY AND [address] [place] [phone] Hemoglobin A1c (03/21/2020 7:57 AM PACKAGING TECHNICIAN)Only the most recent of4 resultswithin the time period is included. Hemoglobin A1C 8.0 (H) 4.0 - 5.6 % [facility] Comment: HOSPITAL HbA1c cutoffs for diagnosing diabetes: 4.0% - 5.6% = normal 5.7% - 6.4% = increased risk for diabetes (prediabetes )9 >=6.5% = diabetes9 Goals for glycemic control (ADA 2016) < 7.0% Target for non adults with diabetes. More or less stringent targets may be appropriate for individual patients. <7.5% Target for Children and adolescents with type 1 diabetes. Specimen Blood Performing Organization Address [facility] Phon e Number [facility] DEPARTMENT OF PATHOLOGY AND [address] [place] [phone] NT-proBNP (03/21/2020 7:53 AM PACKAGING TECHNICIAN)Only the most recent of3 resultswithin the time period is included. Pathologist [facility] NT-proBNP 765 (H) 0 - 125 pg/mL [facility] Specimen Plasma Performing Organization Address City/[facility] Phon e Number [facility] DEPARTMENT OF PATHOLOGY AND [address] [place] [phone] Estimated GFR (03/21/2020 7:53 AM PACKAGING TECHNICIAN)Only the most recent of4 resultswithin the time period is included. Estimated GFR 63 mL/min/1.73 [facility] Comment: m2 HOSPITAL Catergory Units Interpretation G1 >=90 Normal or high G2 60-89 Mildly decreased G3a 45-59 Mildly to moderately decreas ed G3b 30-44 Moderately to severely decre ased G4 15-29 Severely decreased G5 <15 Kidney failure The eGFR was calculated using the Chronic Kidney Disea se Epidemiology Collaboration (CKD-EPI) equation. Interpretation is based on recommendations of the National Kidney Foundation-Kidney Disease Outcomes Calos lity Initiative (NKF-KDOQI) published in 2014. Specimen Plasma Performing Organization Address [facility] Phon e Number [facility] DEPARTMENT OF PATHOLOGY AND [address] [place] [phone] T3 (03/21/2020 7:53 AM PACKAGING TECHNICIAN)Only the most recent of2 resultswithin the time period is included. Pathologist Sig nature T3 77 (L) 80 - 200 ng/dL [facility] Specimen Plasma Performing Organization Address [facility] Phon e Number [facility] DEPARTMENT OF PATHOLOGY AND [address] [place] [phone] Thyroid stimulating hormone (03/21/2020 7:53 AM PACKAGING TECHNICIAN)Only the most recent of2 resultswithin the time period is included. Pathologist Sig nature TSH 1.32 0.27 - 4.20 uIU/mL [facility] Specimen Plasma Performing Organization Address [facility] Phon e Number [facility] DEPARTMENT OF PATHOLOGY AND [address] [place] [phone] T4, free (03/21/2020 7:53 AM PACKAGING TECHNICIAN)Only the most recent of2 resultswithin the time period is included. Pathologist Sig nature T4, free 1.5 0.9 - 1.7 ng/dL [facility] Specimen Plasma Performing Organization Address [facility] Phon e Number [facility] DEPARTMENT OF PATHOLOGY AND [address] [place] [phone] [place] [phone] Phosphorus level (03/21/2020 7:53 AM PACKAGING TECHNICIAN) Pathologist Sig nature Phosphorus 2.9 2.4 - 4.5 mg/dL [facility] Specimen Plasma Performing Organization Address City/[facility] Phon e Number [facility] DEPARTMENT OF PATHOLOGY AND [address] [place] [phone] [address] Magnesium level (03/21/2020 7:53 AM PACKAGING TECHNICIAN)Only the most recent of4 resultswithin the time period is included. Pathologist Sig nature Magnesium 1.9 1.6 - 2.4 mg/dL [facility] Specimen Plasma Performing Organization Address [facility] Phon e Number [facility] DEPARTMENT OF PATHOLOGY AND [address] [place] [address] [phone] [phone] Comprehensive metabolic panel (03/21/2020 7:53 AM PACKAGING TECHNICIAN)Only the most recent of4 resultswithin the time period is included. Sodium 141 135 - 148 [facility] mEq/L [facility] Potassium 4.6 3.5 - 5.0 [facility] mEq/L [facility] Chloride 99 98 - 112 [facility] mEq/L [facility] CO2 29 24 - 31 mEq/L [facility] Anion gap 13@ANIO 7 - 15 mEq/L [facility] BUN 21 8 - 23 mg/dL [facility] Creatinine 1.17 0.70 - 1.20 [facility] mg/dL [facility] Glucose 225 (H) 65 - 99 mg/dL [facility] Calcium 9.5 8.8 - 10.2 [facility] mg/dL [facility] Protein 7.7 6.3 - 8.3 [facility] Comment: g/dL [facility] - [place] 4.6-7.0 g/dL 1 week 4.4-7.6 g/dL 7 months-1year 5.1-7.3 g/dL 1-2 years 5.6-7.5 g/dL >3 years 6.0-8.0 g/dL 18-150 6.3-8.3 g/dL Albumin 3.6 3.5 - 5.0 [facility] g/dL [facility] A/G ratio 0.9 0.7 - 3.8 [facility] Alkaline phosphatase 73 40 - 129 U/L [facility] AST 13 10 - 50 U/L [facility] ALT 9 5 - 50 U/L [facility] Total bilirubin 0.7 0.0 - 1.2 [facility] mg/dL HOSPITAL Specimen Plasma Performing Organization Address City/[facility] Phon e Number [facility] DEPARTMENT OF PATHOLOGY AND [address] [place], [place] [phone] GENOMIC MEDICINE [facility] [address] [place] [address] CT Head Wo Contrast (12/21/2019 3:30 PM CDT) Specimen Narrative Performed At Study: CT HEAD WO CONTRAST RADIANT History:I42.8 Other cardiomyopathies, I50.42 Chronic c ombined systolic (congestive) and diastolic (congestive) heart failure, listed heart transplant COMPARISON:None. TECHNIQUE: Multiple axial CT images of the head obtain ed without IV contrast. Sagittal and coronal reconstru ctions were performed. CT imaging was performed with iterative reconstruction technique and/or automated exposure control to reduce rad iation dose. FINDINGS: Parenchymal volume is normal. There are changes of chr onic small vessel ischemic disease There is no acute hemorrhage, midline shift, hydrocephalus, edema, or extra-axial collections. .The visualized paranasal sinuses are well aerated. Th e mastoid air cells are well aerated. The calvarium is intact. The v isualized orbits are unremarkable. IMPRESSION: No acute or suspicious intracranial abno rmality. [facility]-[id number] Procedure Note Interface, Radiology Results Incoming - 12/21/2019 3:42 PM CDT Study: CT HEAD WO CONTRAST History:I42.8 Other cardiomyopathies, I5 0.42 Chronic combined systolic (congestive) and diastolic (congestive) heart failure, listed heart transplant COMPARISON:None. TECHNIQUE: Multiple axial CT images of t he head obtained without IV contrast. Sagittal and coronal reconstructions were performed. CT imaging was performed with iterative reconstruction technique and/or automated exposure control to reduce radiation dose. FINDINGS: Parenchymal volume is normal. There are changes of chronic small vessel ischemic disease There is no acute hemorrhage, midline shift, hydrocephalus, edema, or extra-axial collections. .The visualized paranasal sinuses are well aerated. The mastoid air cells are well aerated. The calvarium is intact. The visualized orbits are unremarkable. IMPRESSION: No acute or suspicious intracranial abno rmality. [facility]-[id number] Performing Organization Address City/State/ZIP Code Phon e Number HM [facility] [address] [place] [address] CT Chest Wo Contrast Abdomen Wo Contrast Pelvis Wo Contrast (12/21/2019 3:00 PM CDT) Specimen Narrative Performed At EXAMINATION: CT CHEST WO CONTRAST ABDOME N WO CONTRAST PELVIS WO CONTRAST [facility] HISTORY: I42.8 Other cardiomyopathies, I50.42 Chronic combined systolic (congestive) and diastolic (congestive) heart failure, listed for heart transplant TECHNIQUE: CT examination of the chest, abdomen, and p hallie was performed without intravenous contrast. Sagittal and c oronal computerized reformatted images were obtained. CT imag ing was performed with iterative reconstruction techniques and/or automated exposure control to reduce radiation do se. COMPARISON: 10/21/2018. FINDINGS: CHEST Devices: None. Cardiovascular: Left subclavian AICD with right atriov entricular leads in expected positions. Heart is at the upper limit of normal size. There is no pericardial effusion. There is no significant ca lcified coronary artery disease. Mediastinum/Nodes: No thoracic lymphaden opathy. Pulmonary: Status post partial left upper lobectomy. T here has been progression of multifocal centrilobular nodularity in various areas of the lungs which may represent mucous plugging, e.g. me dial segment right middle lobe (302/90), right upper lobe (302/66). Increased volume loss and consolidative change along t he anterior left lung. No significant change in an other focal consol idation more inferiorly (302/68). No effusion or pneu mothorax. ABDOMEN Liver: Normal size and contour, without discrete lesion. Gallbladder/Biliary: Gallbladder contains several calc ific stones, without findings of acute cholecystitis. Spleen: Normal in size, without discrete lesion. Pancreas: Unremarkable. Adrenal: Unremarkable. Kidneys: No hydronephrosis. There is a left extra srinivasan l pelvis. No renal or ureteral stone. Slightly lobulated contour of both kidneys, suggesting scarring from prior insults. Vascular: Greater abdominal vasculature is unremarkabl e. No abdominal aortic aneurysm. Lymph Nodes: No abdominal lymphadenopath y. Bowel: Small bowel containing right inguinal hernia wi thout evidence of incarceration. Small bowel is unremarkab le. Appendix is normal. Peritoneal/Other: No ascites or fluid co llections. PELVIS Urogenital: Urinary bladder is unremarkable. The prost ate gland is enlarged. Other: No mass, fluid collection or sign ificant adenopathy. MUSCULOSKELETAL No new aggressive osseous lesion. Healed extensively r emodeled left sixth rib fracture. There are multilevel degenerative spinal changes, featuring flowing ossification along the anterior long itudinal ligament at thoracolumbar levels. IMPRESSION: 1.Since the prior CT, there is been mild progression o f volume loss and consolidative change of the anterior left upper lobe. Some of this may be related to increasing mucous plugging, which is als o seen more broadly throughout the lungs since the p rior CT, recommend clinical correlation for signs of infect ion and consider short term follow up to ensure resolutio n. 2.New multiple areas of centrilobular nodularity throu ghout both lungs, suggestive of mucus plugging. 3.Cholelithiasis. 4.Unchanged unincarcerated small bowel-c ontaining right inguinal hernia. [id number] Procedure Note Hm Interface, Radiology Results Incoming - 12/21/2019 4:02 PM CDT EXAMINATION: CT CHEST WO CONTRAST ABDOMEN WO CONTRAST PELVIS WO CONTRAST HISTORY: I42.8 Other cardiomyopathies, I 50.42 Chronic combined systolic (congestive) and diastolic (congestive) heart failure, listed for heart transplant TECHNIQUE: CT examination of the chest, abdomen, and pelvis was performed without intravenous contrast. Sagittal and coronal computerized reformatted images were obtained. CT imaging was performed with iterative reconstruction techniques and/or automat ed exposure control to reduce radiation do se. COMPARISON: 10/21/2018. FINDINGS: CHEST Devices: None. Cardiovascular: Left subclavian AICD wit h right atrioventricular leads in expected positions. Heart is at the upper limit of normal size. There is no pericardial effusion. There is no significant calcified coronary artery disease. Mediastinum/Nodes: No thoracic lymphaden opathy. Pulmonary: Status post partial left uppe r lobectomy. There has been progression of multifocal centrilobular nodularity in various areas of the lungs which may represent mucous plugging, e.g. medial segment right middle lobe (302/90), right upper lobe (302/66). Increased volume loss and consolidative change along the anterior left lung. No significant change in an other focal consolidation more inferiorly (302/68). No effusion or pneumothorax. ABDOMEN Liver: Normal size and contour, without discrete lesion. Gallbladder/Biliary: Gallbladder contain s several calcific stones, without findings of acute cholecystitis. Spleen: Normal in size, without discrete lesion. Pancreas: Unremarkable. Adrenal: Unremarkable. Kidneys: No hydronephrosis. There is a l eft extra renal pelvis. No renal or ureteral stone. Slightly lobulated contour of both kidneys, suggesting scarring from prior insults. Vascular: Greater abdominal vasculature is unremarkable. No abdominal aortic aneurysm. Lymph Nodes: No abdominal lymphadenopath y. Bowel: Small bowel containing right ingu inal hernia without evidence of incarceration. Small bowel is unremarkable. Appendix is normal. Peritoneal/Other: No ascites or fluid co llections. PELVIS Urogenital: Urinary bladder is unremarka ble. The prostate gland is enlarged. Other: No mass, fluid collection or sign ificant adenopathy. MUSCULOSKELETAL No new aggressive osseous lesion. Healed extensively remodeled left sixth rib fracture. There are multilevel degenerative spinal changes, featuring flowing ossification along the anterior longitudinal ligament at thoracolumbar levels. IMPRESSION: 1.Since the prior CT, there is been mild progression of volume loss and consolidative change of the anterior left upper lobe. Some of this may be related to increasing mucous plugging, which is also seen more broadly throughout the lungs since the prior CT, recommend clinical correlation for s igns of infection and consider short term follow up to ensure resolution. 2.New multiple areas of centrilobular no dularity throughout both lungs, suggestive of mucus plugging. 3.Cholelithiasis. 4.Unchanged unincarcerated small bowel-c ontaining right inguinal hernia. [id number] Performing Organization Address City/State/ZIP Code Phon e Number [facility] [address] [place] [address] XR Panorex (12/21/2019 12:46 PM CDT) Specimen Narrative Performed At EXAMINATION: XR PANOREX [facility] CLINICAL HISTORY: I42.8 Other cardiomyopathies, I50.42 Chronic combined systolic (congestive) and diastolic (congestive) heart failure, listed heart transplant patient COMPARISON: None IMPRESSION: No fracture or subluxation. Multiple dental fillings. No significant periapical austin cency. Unerupted dentition #1 and #16. Partially interrup sneha dentition #17 and 32. [id number] Procedure Note Hm Interface, Radiology Results Incoming - 12/21/2019 12:54 PM CDT EXAMINATION: XR PANOREX CLINICAL HISTORY: I42.8 Other cardiomyop athies, I50.42 Chronic combined systolic (congestive) and diastolic (congestive) heart failure, listed heart transplant patient COMPARISON: None IMPRESSION: No fracture or subluxation. Multiple dental fillings. No significant periapical lucency. Unerupted dentition #1 and #16. Partially interrupted dentition #17 and 32. [id number] Performing Organization Address City/State/ZIP Code Phon e Number [facility] [address] [place] [address] Six minute walk w/ pulse oximetry (12/21/2019 12:16 PM CDT) Pathologist Sig nature Heart Rate at Rest 86.00 1/min [facility] SPO2 at Rest 99.00 % [facility] BP Systolic at Rest 102.00 mmHg [facility] BP Diastolic at Rest 51.00 mmHg [facility] Supplemental O2 at Rest 0.00 L/min [facility] Heart Rate after 1 minute 98.00 1/min [facility] SPO2 after 1 minute 98.00 % [facility] Supplemental O2 after 1 0.00 L/min [facility] minute Heart Rate after 2 102.00 1/min [facility] minutes SPO2 after 2 minutes 96.00 % [facility] Supplemental O2 after 2 0.00 L/min [facility] minutes Heart Rate after 3 101.00 1/min [facility] minutes SPO2 after 3 minutes 96.00 % [facility] Supplemental O2 after 3 0.00 L/min [facility] minutes Heart Rate after 4 103.00 1/min [facility] minutes SPO2 after 4 minutes 96.00 % [facility] Supplemental O2 after 4 0.00 L/min [facility] minutes Heart Rate after 5 105.00 1/min [facility] minutes SPO2 after 5 minutes 95.00 % [facility] Supplemental O2 after 5 0.00 L/min [facility] minutes Six Minute Walk Distance 380.00 361.70 - 667.70 m HM [facility] ON in m Heart Rate after 6 106.00 1/min [facility] minutes Highest Heart Rate 106.00 1/min [facility] SPO2 after 6 minutes 95.00 % [facility] Lowest SpO2 95.00 % [facility] BP Systolic after 6 118.00 mmHg [facility] minutes BP Diastolic after 6 66.00 mmHg [facility] minutes Supplemental O2 after 6 0.00 L/min [facility] minutes Lap Count 9.00 [facility] Six Minute Walk Distance 515 [facility] Predicted Specimen Narrative Performed At This result has an attachment that is no t available. Performing Organization Address City/State/ZIP Code Phon e Number [facility] [address] [place] [address] Spirometry, diffusion (12/21/2019 12:13 PM CDT) Pathologist Sig nature FEV1 Pre 2.86 L [facility] FEV1/FVC % Pre 72.27 % [facility] FVC Pre 3.96 L [facility] PEF Pre 6.43 L/s [facility] FEF 25-75% Pre 2.06 L/s [facility] DLCO Pre 18.90 ml/(min*mmHg) [facility] DL/VA Pre 2.91 ml/(min*mmHg*L) [facility] VA SB Pre 6.49 L [facility] DLCOc Pre 19.53 ml/(min*mmHg) [facility] KCOc SB Pre 3.01 ml/(min*mmHg*L) [facility] Hb Pre 13.50 g(Hb)/dL [facility] FEV1 Predicted 3.51 [facility] FEV1 LLN 2.68 [facility] FEV1 % Pre of Predicted 81.5 % [facility] FVC Predicted 4.77 [facility] FVC LLN 3.78 [facility] FVC % Pre of Predicted 83.1 % [facility] FEV1/FVC % Predicted 74 [facility] FEV1/FVC % LLN 64 [facility] FEV1/FVC % Pre of Predicted 98.2 % [facility] FEF 25-75% Predicted 2.66 [facility] FEF 25-75% LLN 0.97 [facility] FEF 25-75% % Pre of 77.4 % [facility] Predicted PEF Predicted 8.82 [facility] PEF LLN 6.37 [facility] PEF % Pre of Predicted 72.9 % [facility] DLCO Predicted 26.99 [facility] DLCO LLN 19.02 [facility] DLCO % Pre of Predicted 70.0 % [facility] DLCOc Predicted 26.99 [facility] DLCOc LLN 19.02 [facility] DLCOc % Pre of Predicted 72.4 % [facility] DL/VA Predicted 3.82 [facility] DL/VA LLN 2.62 [facility] DL/VA % Pre of Predicted 76.2 % [facility] KCOc SB Predicted 3.82 [facility] KCOc SB LLN 2.62 [facility] KCOc SB % Pre of Predicted 78.8 % [facility] VA SB Predicted 7.21 [facility] VA SB LLN 5.84 [facility] VA SB % Pre of Predicted 90.0 % [facility] Specimen Narrative Performed At This result has an attachment that is no t available. Performing Organization Address City/[facility]/ZIP [facility] [place], [place] Phon e Number [facility] [address] [place] [phone] Nicotine and cotinine, serum (12/21/2019 9:50 AM CDT)Only the most recent of3 resultswithin the time period is included. Nicotine <2.0 0.0 - 1.9 [facility] ng/mL [facility] Cotinine <2.0 0.0 - 1.9 [facility] Comment: ng/mL HOSPITAL This test was developed and its performance characteri stics determined by the Department of Pathology and Genomic Medicine, [facility]. Serum nicotine and metabolite cotinine are t ested by HPLC tandem mass spectrometry. It has not been cleared or approved by FDA. The laboratory is regulated under CLIA as qualified to per form high-complexity testing. This test is used for clinical purposes. It s hould not be regarded as investigational or for research. Specimen Blood Performing Organization Address [facility] Phon e Number [facility] DEPARTMENT OF PATHOLOGY AND [address] [place] [address] [address] Syphilis total antibody (12/21/2019 9:50 AM CDT) Syphilis total Non-reactiveComment Non-reactive [facility] antibody : No serological HOSPITAL evidence of syphilis infection. Specimen Serum Performing Organization Address City/[facility]/ZIP [facility] [place] Phon e Number [facility] DEPARTMENT OF PATHOLOGY AND [address] [place] [address] [address] [address] HIV Ag/Ab combination (12/21/2019 9:50 AM CDT) HIV Ag/Ab combination Non-reactive Non-reactive [facility] Specimen Serum Performing Organization Address City/[facility]/ZIP Code Phon e Number [facility] DEPARTMENT OF PATHOLOGY AND [address] [place] [address] [address] Lois Bass Virus (EBV) by PCR (12/21/2019 9:50 AM CDT) Lois Bass virus, Not-Detected Not-Detected [facility] PCR copies/mL [facility] Lois Bass virus, See link below [facility] PCR for PDF Lab HOSPITAL ReportComment: Specimen Performing Organization Address City/[facility] Phon e Number [facility] DEPARTMENT OF PATHOLOGY AND [address] [place] [address] Cytomegalovirus Ab, IgM (12/21/2019 9:50 AM CDT) Pathologist Sig [facility] Cytomegalovirus Ab, IgM Negative Negative [facility] Specimen Serum Performing Organization Address [facility] Phon e Number [facility] DEPARTMENT OF PATHOLOGY AND [address] [place], [place] [phone] Hepatitis A antibody total (12/21/2019 9:50 AM CDT) Pathologist Sig [facility] Hepatitis A total Non-reactive Non-reactive [facility] Specimen Serum Performing Organization Address City/[facility] Phon e Number [facility] DEPARTMENT OF PATHOLOGY AND [address] [place] [address] Toxoplasma IgM Ab (12/21/2019 9:50 AM CDT) Pathologist Sig nature Toxoplasma IgM Negative Negative [facility] Specimen Blood Performing Organization Address City/[facility] Phon e Number [facility] DEPARTMENT OF PATHOLOGY AND [address] [place] [address] Hepatitis acute panel (12/21/2019 9:50 AM CDT) Pathologist Sig [facility] Hepatitis A IgM Non-reactive Non-reactive [facility] Hepatitis B core Non-reactive Non-reactive [facility] Hepatitis B surface Non-reactive Non-reactive [facility] Hepatitis C Ab Non-reactive Non-reactive [facility] Specimen Serum Performing Organization Address City/[facility]/ZIP Code Phon e Number [facility] DEPARTMENT OF PATHOLOGY AND [address] [place] [address] [address] [address] Hepatitis B core antibody total (12/21/2019 9:50 AM CDT) Pathologist Sig nature Hepatitis B core Non-reactive Non-reactive [facility] total Ab HOSPITAL Specimen Serum Performing Organization Address City/[facility]/ZIP [facility] [place] [place] Phon e Number [facility] DEPARTMENT OF PATHOLOGY AND [address] [place] [address] [address] Toxoplasma gondii antibody, IgG (12/21/2019 9:50 AM CDT) Toxoplasma gondii <3 0 - 9 IU/mL [facility] Ab, IgG Comment: HOSPITAL Equal or less than 9 IU/mL Negative; No previous T. gonii infection Specimen Serum Performing Organization Address City/[facility]/ZIP [facility] [place] [place] Phon e Number [facility] DEPARTMENT OF PATHOLOGY AND [address] [place] [address] [address] Hepatitis B surface antibody (12/21/2019 9:50 AM CDT) Pathologist Sig nature Hepatitis B surface Non-reactive Non-reactive [facility] Ab HOSPITAL Specimen Serum Performing Organization Address City/[facility] Phon e Number [facility] DEPARTMENT OF PATHOLOGY AND [address] [place] [phone] Cytomegalovirus Ab, IgG (12/21/2019 9:50 AM CDT) Cytomegalovirus Ab, IgG Positive (A) Negative [facility] Comment: HOSPITAL Positive; IgG antibody to CMV detected which may indic ate exposure to CMV infection. Specimen Serum Performing Organization Address City/[facility]/ZIP [facility] [place] Phon e Number [facility] DEPARTMENT OF PATHOLOGY AND [address] [place] [address] Partial thromboplastin time, activated (12/21/2019 9:50 AM CDT) PTT 29.1 23.0 - 36.0 [facility] Comment: sec HOSPITAL PTT therapeutic range for unfractionated heparin is 61.0-112.0 seconds which corresponds to Anti-Xa 0.3-0.7 U/ml. Specimen Blood Performing Organization Address City/[facility]/ZIP [facility] [place] [place] Phon e Number [facility] DEPARTMENT OF PATHOLOGY AND [address] [place] [address] [place] [address] Prothrombin time with INR (12/21/2019 9:50 AM CDT) Prothrombin time 13.6 11.5 - 14.5 [facility] INR 1.0 [place] Comment: [facility] International Normalized Ratio (INR) is a [facility] monitoring tool for patients who are stable on oral anticoagulant therapy. An INR of 2.0-3.0 is suggested for deep vein thrombosis/pulmonary embolism. Specimen Blood Performing Organization Address [facility] Phon e Number [facility] DEPARTMENT OF PATHOLOGY AND [address] [place] [address] Uric acid level (12/21/2019 9:50 AM CDT)Only the most recent of3 resultswithin the time period is included. Pathologist Sig nature Uric acid 7.4 (H) 3.4 - 7.0 mg/dL [facility] L Specimen Blood Performing Organization Address City/[facility] Phon e Number [facility] DEPARTMENT OF PATHOLOGY AND [address] [place] [address] [address] [address] T4 (12/21/2019 9:50 AM CDT) Pathologist Sig nature T4 10.2 4.5 - 11.7 ug/dL [facility] Specimen Blood Performing Organization Address City/[facility]/ZIP [facility] [place] [place] Phon e Number [facility] DEPARTMENT OF PATHOLOGY AND [address] [place] [address] [address] [address] Prealbumin level (12/21/2019 9:50 AM CDT) Pathologist Sig nature Prealbumin 20 16 - 32 mg/dL [facility] Specimen Serum Performing Organization Address City/[facility] Phon e Number [facility] DEPARTMENT OF PATHOLOGY AND [address] [place] [address] [address] [address] B natriuretic peptide (12/21/2019 9:50 AM CDT)Only the most recent of3 results within the time period is included. Pathologist Sig nature BNP 315 (H) 0 - 100 pg/mL [facility] Specimen Blood Performing Organization Address City/[facility]/ZIP [facility] [place] [place] Phon e Number [facility] DEPARTMENT OF PATHOLOGY AND [address] [place] [phone] LDH (12/21/2019 9:50 AM CDT) Pathologist Sig nature LDH 162 87 - 225 U/L [facility] Specimen Blood Performing Organization Address City/[facility] Phon e Number [facility] DEPARTMENT OF PATHOLOGY AND [address] [place] [address] Bilirubin direct (12/21/2019 9:50 AM CDT) Pathologist Sig nature Bilirubin direct <0.2 0.0 - 0.3 mg/dL [facility] Specimen Performing Organization Address City/[facility] Phon e Number [facility] DEPARTMENT OF PATHOLOGY AND [address] [place] [address] 0 [place] [phone] Digoxin level (12/21/2019 9:50 AM CDT)Only the most recent of3 resultswithin the time period is included. Digoxin <0.3 (L) 0.8 - 2.0 ng/mL [facility] Comment: HOSPITAL For valid Digoxin results, at least 6 hours should jada pse between time of last dose and collection of blood. Otherwise, result may be false high. Therapeutic Range: 0.8 - 2.0 ng/mL Specimen Blood Performing Organization Address City/[facility]/ZIP [facility] [place] [place] Phon e Number [facility] DEPARTMENT OF PATHOLOGY AND [address] [place] [address] Lipid panel (12/21/2019 9:50 AM CDT)Only the most recent of3 resultswithin the time period is included. Cholesterol 105 <200 mg/dL [facility] Triglycerides 113 <150 mg/dL [facility] HDL cholesterol 31 (L) >40 mg/dL [facility] LDL cholesterol 61Comment: Result <100 mg/dL [place] obtained by direct UATSDIN LDL measurement [facility] Lipid panel SeeBelow [place] interpretation Comment: UATSDIN Total Cholesterol (mg/dL) HOSPIT AL <200 Desirable 200-239 Borderline-high >=240 High Triglycerides (mg/dL) <150 Normal 150-199 Borderline-high 200-499 High >=500 Very high HDL Cholesterol (mg/dL) <40 Low (male) <40 Low (female) LDL Cholesterol (mg/dL) <100 Optimal 100-129 Near or above optimal 130-159 Borderline-high 160-189 High >=190 Very high Risk Catergories that modify LDL goals. Risk Catergories LDL goal (mg/d L) CHD and CHD risk equivalent <100 (10-year risk >20%) Multiple (2+) risk factors <130 (10-year risk =<20%) 0-1 risk factors <160 (<10-year risk) Defining levels of lipids in metabolic syndrome Triglycerides >=150 mg/dL HDL Cholesterol Men <40 mg /dL Women <40 mg/ dL Non-HDL cholesterol is a second target for therapy in persons with high triglycerides (>=200 mg/dL) Specimen Blood Performing Organization Address City/State/ZIP Code Phon e Number [facility] DEPARTMENT OF PATHOLOGY AND [address] [place] [address] [place] [address] Echocardiogram complete w contrast and 3D if needed (06/15/2019 1:56 PM PACKAGING TECHNICIAN) Specimen Narrative Performed At This result has an attachment that is no t available. [facility] Echocardiography R eport [address] [place] [address] Pat.Name: SHASHI GUALLPA Kesha.ID: [id number] .Date: 06/15/2019 Refer.MD: OVIDIO BRADLEY MD Exam Time: 1:14:00 PM Study Type:Routine Echo Height: 74in Weight: 222lb BSA: 2.27 m2 Age: 7 1950,68Y Sex: MALE BP: 115/70 HR: 74 bpm Sonogrphr: Jaye Diego RDCS Room: [facility] [facility] Study Status:Final Echo Event ID:[id number] Order ID: [id number] Reason for Study:HF - Re-eval of known HF (systolic or diastolic) with a change in clinical status or cardiac exam without a clear precipitating change in medication or diet History / Clinical:Arrhythmias, Hypertension, Diabetes Procedures: 2D Echo, Colorflow Doppler, Intravenous De finity Contrast Race: D SUMMARY: LV size is zjqmvuzg-uo-fpazphwx enlarged. Global hypokinesis. Estimated EF is <20%. Mild mitral regurgitation. Diastolic dysfunction Grade I (Mild): Impaired relaxat ion with normal LV filling pressures. Insufficient TR jet to estimate PA systolic pressure. FINDINGS: LV: LV size is bygewkro-ee-uhwyrtti enlarged. There is severe eccentric LV hypertrophy. LV EF is se verely depressed. Global hypokinesis. Septal motion is paradoxical secondary to LBBB or conduction abnormality. Es timated EF is <20%. RV: RV size is normal. A pacemaker wire is se en in the RV. RV systolic function is normal. LA: LA volume is mildly enlarged. RA: RA volume is normal. A pacemaker wire is seen. AO: Aortic root diameter is normal. TRENTON: No pericardial effusion. AV: Aortic valve not well seen. A trace of ao rtic regurgitation. MV: No structural MV abnormalities noted. Mil d mitral regurgitation. Etiology of MR is seco ndary to LV dysfunction and remodeling. PV: Pulmonic valve not well seen. TV: No structural TV abnormalities noted. Flores: Diastolic dysfunction Grade I (Mild): Impa ired relaxation with normal LV filling pressures. Other: Insufficient TR jet to estimate PA systoli c pressure. MEASUREMENTS: 2D Parasternal Long Pelzer Ao An 2.4 cm LVPWd 1.1 cm Ao Rtd 3.5 cm Index 1.6 cm/m2 LA Ds 4.7 cm IVSd 1.2 cm RWT 0.33 LVIDd 6.7 cm Index 2.9 cm/m2 LV Mass 357 g (122-174) LVIDs 5.4 cm LVM In dex 157 g/m LV%fs 19 % LVOT 2.2 cm LA Sng Plane LA Area 23 cm (8.8-23.4) LA Vol 80 ml Index 35 ml/m2 LA LngAx 5.6 cm LVOT LVOT Area 4 cm DOPPLE R LVOT Stroke Vol LVOT TVI 13 cm HR 76 bpm LVOT LVOT SV 52 ml LVOT CO 4 l/min SVi 23 ml/m LVOT CI 1.8 l/m/m Signed 06/16/2019 05:21 PM Naun Jett M.D. Procedure Note Interface, Radiology Results In - 2019 5:22 PM PACKAGING TECHNICIAN Echocardiography Report [id number] [place] [address] Pat.Name: SHASHI GUALLPATres D: [id number] .Date: 06/15/2019 Refer .MD: OVIDIO BRADLEY MD Exam Time: 1:14:00 PM Study Type:Routine Echo Height: 74in Weigh t: 222lb BSA: 2.27 m2 Age: 7 1950,68Y Sex: MALE BP: 115/70 HR: 74 bpm Sonog rphr: Jaye Diego RDCS Room: [facility] 16 Study Status:Final Echo Event ID:[id number] Order ID: [id number] Reason for Study:HF - Re-eval of known H F (systolic or diastolic) with a change in clinical status or cardiac e xam without a clear precipitating change in medication or di et History / Clinical:Arrhythmias, Hyperten sayra, Diabetes Procedures: 2D Echo, Colorflow Doppler, Intravenous Definity Contrast Race: D SUMMARY: LV size is osjilogf-zd-aawmxdkw enlarged . Global hypokinesis. Estimated EF is <20% . Mild mitral regurgitation. Diastolic dysfunction Grade I (Mild): Im paired relaxation with normal LV filling pressures. Insufficient TR jet to estimate PA systo lic pressure. FINDINGS: LV: LV size is pvocvwlk-rr-phwgddj y enlarged. There is severe eccentric LV hypertrophy. LV EF is severely depressed. Global hypokinesis. Septal mo tion is paradoxical secondary to LBBB or conduction abnorma lity. Estimated EF is <20%. RV: RV size is normal. A pacemaker wire is seen in the RV. RV systolic function is normal. LA: LA volume is mildly enlarged. RA: RA volume is normal. A pacemak er wire is seen. AO: Aortic root diameter is normal . TRENTON: No pericardial effusion. AV: Aortic valve not well seen. A trace of aortic regurgitation. MV: No structural MV abnormalities noted. Mild mitral regurgitation. Etiology of MR is secondary to LV dysfunction and remodeling. PV: Pulmonic valve not well seen. TV: No structural TV abnormalities noted. Flores: Diastolic dysfunction Grade I (Mild): Impaired relaxation with normal LV filling pressu res. Other: Insufficient TR jet to estimat e PA systolic pressure. MEASUREMENTS: 2D Parasternal Long Pelzer Ao An 2.4 cm LVPW d 1.1 cm Ao Rtd 3.5 cm Inde x 1.6 cm/m2 LA Ds 4.7 cm IVSd 1.2 cm RWT 0.33 LVIDd 6.7 cm Inde x 2.9 cm/m2 LV Mass 357 g (122-174) LVIDs 5.4 cm LVM Index 157 g/m LV%fs 19 % LVOT 2.2 cm LA Sng Plane LA Area 23 cm (8.8-23.4) L A Vol 80 ml Index 35 ml/m2 LA LngAx 5.6 cm LVOT LVOT Area 4 cm DOPPLER LVOT Stroke Vol LVOT TVI 13 cm HR 76 bpm LVOT LVOT SV 52 ml LVOT CO 4 l/min SVi 23 ml/m LVO T CI 1.8 l/m/m Signed 06/16/2019 05:21 PM Naun Jett M.D. Performing Organization Address City/[facility] [address] [place] [address] Single antigen beads (06/15/2019 10:59 AM PACKAGING TECHNICIAN) SAB serum ID [id number] [facility] SAB serum collection 06/15/2019 10:59 [facility] D&T [facility] SAB class I antibody Negative [facility] SAB cPRA class I 0 [facility] SAB class II Negative [facility] SAB cPRA class II 0 [facility] Single antigen beads See link below [facility] for PDF Lab HOSPITAL Report Specimen Blood Performing Organization Address City/[facility] Phon e Number [facility] DEPARTMENT OF PATHOLOGY AND [address] [place] [address] [id number] GENOMIC MEDICINE [facility] [address] [place] [address] [facility] after 06/12/2019 Insurance Payer Benefit Plan / Subscriber ID Effective Phone Address T ype Group Dates MEDICARE MEDICARE PART [id number] 2014-[place], [place] Medicare A AND B nt [employer] OF [employer] OF [id number] [facility] Advance Directives For more information, please contact: [phone] Type Date Recorded 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
== END 2020-06-12 06:45 | disposition home or self-care (01) ==
LOC: ER 03:20
DX: J16.8 Pneumonia due to other specified infectious organisms (principal); I50.43 Acute on chronic combined systolic (congestive) and diastolic (congestive) heart failure; Z20.822 Contact with and (suspected) exposure to COVID-19; I10 Essential (primary) hypertension; Z95.810 Presence of automatic (implantable) cardiac defibrillator
CPT/HCPCS: 93005; 85025; 80048; 36415; 83735; 85610; 80076; 84484; 83880; 71045; U0003; J1940; J0456; J7050; 96365; 96375; 99284

== ENCOUNTER 2020-10-07 01:58 | Inpatient (IN) | payer OTHER ==
--- OUTSIDE RECORDS SUMMARY | 2020-10-07 02:02 | XMS REPORT | Continuity of Care Document ---
:1950 Author Organization Formerly [facility] t Address [address] Nation [address] [place] [id number] Care Team Providers Name Role Phone Daryl Crawford MD Primary Care Physician Dwight HARP, P. Attending Clinician Amado HARP Attending Clinician Jolene HARP Attending Clinician Mirna HARP Attending Clinician Arielle HARP, AConor Attending Clinician Devante DOMINGUEZ Attending Clinician Chantell OSCAR, D Attending Clinician Unavailable Abe STERN Attending Clinician Unavailable Sarahi OSCAR Attending Clinician Unavailable Kris Attending Clinician Unavailable CHRISTO Attending Clinician Unavailable CHRISTO Admitting Clinician Unavailable Payers Payer Name Policy Type Policy Effective Date Expiration Date Sour ce Number MEDICAREMEDICARE PART [id number] 2014 [place] A AND 00:00:00 Church [id number] 2014- [place], [place] [id number] 2014 Yana varela OF 00:00:00 Church [id number] [id number] Problems Condition Condition Condition Status Onset Resolution Last Treating Co mments Source Name Details Category Date Date Treatment Clinician Date Heart Heart Disease Active Overview: [place] failure failure 4-01 Formattin Metho di 00:00: g of this st 00 note might be different from the original. Added automatic ally from request for surgery [id number] Cardiomyop Cardiomyop Disease Active Overview : [place] athy athy 4-01 Formatt[facility] Methodi 00:00: g of this st 00 note might be different from the original. 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 Family History Family Member Diagnosis Comments Start Date Stop Date Source Natural father Stroke [facility] thodist Natural [facility] Social History Social Habit Start Date Stop Date Quantity Comments Source Cigarettes smoked 2020-07-24 2020-07-24 Maik Renteria current (pack per 00:00:00 00:00:00 day) - Reported Cigarette 2020-07-24 2020-07-24 Maik Colon ist pack-years 00:00:00 00:00:00 Tobacco use and 2020-07-24 2020-07-24 Never used Maik Molina ethodist exposure 00:00:00 00:00:00 Alcohol intake 2020-07-24 2020-07-24 Current [place] Nm thodist 00:00:00 00:00:00 non-drinker of alcohol (finding) Sex Ass[birth year] At [birth year] Maik Tracy nguyenodist 00:00:00 00:00:00 Smoking Status Start Date Stop Date Source Former smoker 2020-07-24 00:00:00 2020-07-24 00:00:00 Maik Colonist Medications Ordered Filled Start Stop Current Ordering Indication Dosage Frequency Signature Comments Components Source Medication Medication Date Date Medication? Clinician (SIG) Name Name digOXIN Yes TAKE 1 [place] (LANOXIN) - TABLET Methodi 125 mcg 00:00: EVERY DAY st (0.125 mg) 00 tablet levothyroxi Yes 150ug QD Take 150 [place] ne 3-23 mcg by Methodi (SYNTHROID, 13:33: mouth st LEVOXYL) 53 daily. 150 mcg tablet allopurinol Yes 100mg QD Take 100 [place] (ZYLOPRIM) 3-23 mg by Methodi 100 MG 13:33: mouth st tablet 26 daily. torsemide 2021- Yes Type 2 20mg Take 1 Yana ston (DEMADEX) 07-24 diabetes tablet (20 Methodi 20 MG 00:00: 23:59 mellitus mg total) st tablet 00 :00 with by mouth hyperglycem as needed ia, without (fluid). long-term current use of insulin (HCC) dapaglifloz 2021- Yes Type 2 10mg QD Take 1 [place] in 07-24 diabetes tablet (10 Meth taylor (Farxiga) 00:00: 23:59 mellitus mg total) st 10 mg 00 :00 with by mouth tablet hyperglycem daily. ia, without long-term current use of insulin (HCC) sacubitriL- 2020- Yes Type 2 1{tbl} Q.5D Take 1 [place] valsartan 07-24 12-18 diabetes tablet by Methodi (ENTRESTO) 00:00: 23:[address] 49-51 mg 00 :00 with (two) tablet per hyperglycem times a tablet ia, without day for long-term 270 days. current use of insulin (HCC) magnesium 2020- No Chronic 400mg QD TAKE 1 [place] oxide 07-05 combined TABLET Methodi (MAG-OX) 00:00: 23:59 systolic (400 MG s t 400 mg 00 :00 and TOTAL) BY (241.3 mg diastolic MOUTH magnesium) congestive DAILY FOR tablet heart 270 DAYS. failure (HCC) carvediloL Yes Chronic TAKE 1 [place] (COREG) 25 2- combined TABLET (25 Methodi MG tablet 00:00: systolic MG TOTAL) st 00 and BY MOUTH 2 diastolic (TWO) congestive TIMES A heart DAY FOR failure 270 DAYS. ([facility]) torsemide No 20mg QD TAKE 1 [place] (DEMADEX) 06-04 TABLET (20 Met hodi 20 MG 00:00: 00:00 MG TOTAL) st tablet 00 :00 BY MOUTH DAILY FOR 270 DAYS. spironolact Yes TAKE 1 [place] one 05-10 TABLET Method[facility] (ALDACTONE) 00:00: EVERY DAY s t 25 MG 00 tablet spironolact 2019-05- No TAKE 1 Yana ston one 05-09 TABLET Methodi (ALDACTONE) 00:00: 00:[address] 25 MG 00 :00 tablet digOXIN No TAKE 1 [facility] (LANOXIN) 12-21 TABLET Method[facility] 125 mcg 00:00: 00:[address] (0.125 mg) 00 :00 tablet sotalol No 80mg QD Take 80 mg Yana ston (BETAPACE) 12-20 by mouth Meth taylor 80 MG 11:17: 00:[address] tablet 33 :00 carvediloL No Chronic 12.5mg Q.5D Take 0.5 [place] (Coreg) 25 12-20 combined tablets M ethodi MG tablet 00:00: 00:00 systolic (12.[address] 00 :00 and total) by diastolic mouth 2 congestive (two) heart times a failure day for (HCC) 270 days. sotaloL No Secondary 120mg QD Take 1.5 [place] (BETAPACE) 12-20 hypertensio tablets Methodi 80 MG 00:00: 23:59 n ([address] tablet 00 :00 total) by mouth daily for 90 days. torsemide No 20mg QD Take 20 mg [place] (DEMADEX) 10-10 by mouth Metho di 20 MG 11:03: 00:[address] tablet 56 :00 sacubitriL- 2020- No 1{tbl} Q.5D Take 1 [place] valsartan 10-10 tablet by Meth taylor (ENTRESTO) 00:00: 00:[address] 49-51 mg 00 :00 (two) tablet per times a tablet day for 270 days. magnesium Chronic 400mg QD Take 1 [place] oxide 10-10 combined tablet Methodi (MAG-OX) 00:00: 00:00 systolic (400 mg s t 400 mg 00 :00 and total) by (241.3 mg diastolic mouth magnesium) congestive daily for tablet heart 270 days. failure (HCC) torsemide No 20mg QD Take 1 [place] (DEMADEX) 10-10 tablet (20 Met hodi 20 MG 00:00: 00:00 mg total) st tablet 00 :00 by mouth daily for 270 days. carvediloL Chronic 25mg Q.5D Take 1 [place] (Coreg) 25 10-10 combined tablet (25 Methodi MG tablet 00:00: 00:00 systolic mg total) st 00 :00 and by mouth 2 diastolic (two) congestive times a heart day for failure 270 days. (HCC) sacubitriL- 2019- No 1{tbl} Q.5D Take 1 [place] valsartan 09-28 tablet by Meth taylor (ENTRESTO) 00:00: 00:[address] 49-51 mg 00 :00 (two) tablet per times a tablet day for 270 days. simvastatin Yes TAKE 1 [place] (ZOCOR) 20 - TABLET Methodi mg tablet 00:00: EVERY st 00 NIGHT spironolact 2019- No TAKE 1 Y[place] st[place] one -29 03- TABLET Method[facility] (ALDACTONE) 00:00: 00:[address] 25 MG 00 :00 tablet digOXIN 2019- No 125ug QD Take 1 [place] (LANOXIN) 05-25- tablet Methodi 125 mcg 00:00: 00:00 ([address] (0.125 mg) 00 :00 total) by tablet mouth daily for 270 days. carvedilol No Chronic 25mg Q.5D Take 1 [place] (COREG) 25 12-10 combined tablet (25 Methodi MG tablet 00:00: 00:00 systolic mg total) st 00 :00 and by mouth 2 diastolic (two) congestive times a heart day for failure 270 days. ([facility]) metFORMIN Yes 1000mg QD Take 1 [place] (GLUCOPHAGE -18 tablet Method i ) 1,000 mg 00:00: (1,[address] tablet 00 total) by mouth daily with lunch. magnesium 2019- No Chronic 400mg QD Take 1 [place] oxide 10-19 combined tablet Method[facility] (MAG-OX) 00:00: 00:00 systolic (400 mg s t 400 mg 00 :00 and total) by (241.3 mg diastolic mouth magnesium) congestive daily for tablet heart 270 days. failure (HCC) Immunizations Ordered Immunization Filled Immunization Date Status Commen ts Source Name Name PFIZER COVID-19 MRNA 2020-08-14 Completed [place] VACCINATION 00:00:00 [facility] PFIZER COVID-19 MRNA 2020-07-24 Completed [place] VACCINATION 00:00:00 [facility] Pneumococcal 2017-02-13 Completed [place] Conjugate 13-Valent 00:00:00 [facility] dist Vital Signs Vital Name Observation Time Observation Value Comments Source Systolic blood 2020-07-24 13:23:00 102 mm[Hg] [place] n Church pressure Diastolic blood 2020-07-24 13:23:00 59 mm[Hg] Carmelo on Church pressure Heart rate 2020-07-24 13:23:00 73 /min Maik Renteria Body height 2020-07-24 13:23:00 188 cm Maik Renteria Body weight 2020-07-24 13:23:00 97.251 kg Maik Renteria BMI 2020-07-24 13:23:00 27.53 kg/m2 Maik Renteria Body temperature 2020-03-21 08:08:00 36.22 Mary [place] [facility] Respiratory rate 2020-03-21 08:08:00 17 /min [place] [facility] Oxygen saturation in 2020-03-21 08:08:00 97 /min Maik Renteria Arterial blood by Pulse oximetry Procedures Procedure Date / Time Performing Clinician Source Performed PV PHYSIOLOGIC ARTERIAL 2020-06-26 16:30:00 Ovidio Bradley LOWER EXTREMITY COMPLETE CT CHEST WO CONTRAST 2020-06-26 15:12:00 Domingo Nunez AConor ECG 12-LEAD 2020-03-21 08:06:06 Tha Cruz HEMOGLOBIN [...] Fischer ESTIMATED GFR 2020-03-21 07:53:[address] HEAD WO CONTRAST 2019-12-21 15:30:[address] CHEST WO CONTRAST 2019-12-21 15:00:00 Ovidio Bradley ABDOMEN WO CONTRAST PELVIS WO CONTRAST XR PANOREX 2019-12-21 12:46:04 Ovidio Bradley SIX MINUTE WALK W/ PULSE 2019-12-21 12:16:59 Ovidio Bradley OXIMETRY SPIROMETRY, DIFFUSION 2019-12-21 12:13:13 Ovidio Bradley on Church ECG 12-LEAD 2019-12-21 10:16:30 Tha Cruz CBC WITH PLATELET AND 2019-12-21 09:50:00 Tha Cruz DIFFERENTIAL COMPREHENSIVE METABOLIC 2019-12-21 09:50:00 Tha Cruz PANEL B NATRIURETIC PEPTIDE 2019-12-21 09:50:00 Tha Cruz LIPID PANEL 2019-12-21 09:50:00 AnthonyTha [place] Swetha dalila NICOTINE AND COTININE, 2019-12-21 09:50:00 Tha Cruz on [facility] SERUM MAGNESIUM LEVEL 2019-12-21 09:50:00 Tha Cruz Meth odist URIC ACID LEVEL 2019-12-21 09:50:00 Tha Cruz Meth odist DIGOXIN LEVEL 2019-12-21 09:50:00 Tha Cruz odlina HEMOGLOBIN A1C 2019-12-21 09:50:00 Tha Cruz Meth odist PROTHROMBIN TIME WITH INR 2019-12-21 09:50:00 Ovidio Bradley PARTIAL THROMBOPLASTIN 2019-12-21 09:50:00 Ovidio Bradley Church TIME (PTT) T3 2019-12-21 09:50:00 Ovidio Bradley Met hodist T4 2019-12-21 09:50:00 Ovidio Bradley Met hodist T4, FREE 2019-12-21 09:50:00 Ovidio Bradley Met hodist SYPHILIS TREPONEMA SCREEN 2019-12-21 09:50:00 Ovidio Bradley WITH RPR CONFIRMATION (REVERSE ALGORITHM) PREALBUMIN LEVEL 2019-12-21 09:50:00 Ovidio Bradley Me thodist LDH 2019-12-21 09:50:00 Ovidio Bradley Met hodist HIV AG/AB COMBINATION 2019-12-21 09:50:00 Ovidio Bradley on [facility] HEPATITIS ACUTE PANEL 2019-12-21 09:50:00 Ovidio Bradley on [facility] HEPATITIS B SURFACE 2019-12-21 09:50:00 Ovidio Bradley ANTIBODY HEPATITIS B CORE ANTIBODY 2019-12-21 09:50:00 Ovidio Bradley TOTAL HEPATITIS A ANTIBODY TOTAL 2019-12-21 09:50:00 Ovidio Bradley CYTOMEGALOVIRUS AB, IGG 2019-12-21 09:50:00 Ovidio Bradley CYTOMEGALOVIRUS AB, IGM 2019-12-21 09:50:00 Ovidio Bradley TOXOPLASMA GONDII 2019-12-21 09:50:00 Ovidio Bradley Tracy ethodist ANTIBODY, IGG TOXOPLASMA IGM AB 2019-12-21 09:50:00 Ovidio Bradley Tracy ethodist THYROID STIMULATING 2019-12-21 09:50:00 Ovidio Bradley HORMONE MARIE BASS VIRUS (EBV) 2019-12-21 09:50:00 Ovidio Bradleyyonathan [facility] BY PCR ESTIMATED GFR 2019-12-21 09:50:00 Tha Cruz Meth odist BILIRUBIN DIRECT 2019-12-21 09:50:00 Tha Cruz Plan of Care Planned Activity Planned Date Details Comments Source Future Scheduled 2020-12-02 INFLUENZA VACCINE [place] [facility] Test 00:00:00 [code = INFLUENZA VACCINE] Future Scheduled 2017-04-10 65+ PNEUMOCOCCAL [place] [facility] Test 00:00:00 VACCINE (1 of 2 - PPSV23) [code = 65+ PNEUMOCOCCAL VACCINE (1 of 2 - PPSV23)] Future Scheduled 1999-11-15 COLONOSCOPY SCREENING [place] [facility] Test 00:00:00 [code = COLONOSCOPY SCREENING] Future Scheduled 1999-11-15 SHINGLES VACCINES (#1) H [place] [facility] Test 00:00:00 [code = SHINGLES VACCINES (#1)] Future Scheduled 1959-11-15 DIABETES: RETINAL EYE [place] [facility] Test 00:00:00 EXAM [code = DIABETES: RETINAL EYE EXAM] Future Scheduled 1959-11-15 DIABETIC FOOT EXAM Carmelo jiménez [facility] Test 00:00:00 [code = DIABETIC FOOT EXAM] Encounters Start End Encounter Admission Attending Care Care Encounter Source Date/Time Date/Time Type Type Clinicians Facility Department ID 2020-08-14 2020-08-14 Outpatient DWIGHT, [facility] [id number] [place] 00:00:00 00:00:[address] MISSY [address] 2020-07-24 2020-07-24 Outpatient [facility] [id number] [place] 00:00:00 00:00:[address] 2020-07-24 2020-07-24 Outpatient TRACHTENBER [facility] [id number] [place] 00:00:00 00:00:00 REINA Gutierrez [address] 2020-06-26 2020-06-26 Outpatient ARIELLE, [facility] [id number] [place] 00:00:00 00:00:00 DOMINGO [address] 2020-06-26 2020-06-26 Outpatient BHIMARAJ, [facility] [id number] [place] 00:00:00 00:00:00 OVIDIO [address] 2020-03-21 2020-03-21 Outpatient BHIMARAJ, [facility] [id number] [place] 00:00:00 00:00:00 OVIDIO [address] 2020-03-21 2020-03-21 Outpatient BHIMARAJ, [facility] [id number] [place] 00:00:00 00:00:00 OVIDIO [address] 2020-03-21 2020-03-21 Outpatient IMARA, [facility] [id number] [place] 00:00:00 00:00:00 OVIDIO [address] 2020-03-21 2020-03-21 Outpatient BHIMARAJ, [facility] [id number] [place] 00:00:00 00:00:00 OVIDIO [address] 2019-12-21 2019-12-21 Outpatient TRACHTENBER [facility] [id number] [place] 00:00:00 00:00:00 REINA Gutierrez [address] 2019-12-21 2019-12-21 Outpatient IMARA, [facility] [id number] [place] 00:00:00 00:00:00 OVIDIO [address] 2019-12-21 2019-12-21 Outpatient BHIMARAJ, [facility] [id number] [place] 00:00:00 00:00:00 OVIDIO [address] 2019-12-21 2019-12-21 Outpatient BHIMARAJ, [facility] [id number] [place] 00:00:00 00:00:00 OVIDIO [address] 2019-12-21 2019-12-21 Outpatient BHIMARAJ, [facility] [id number] [place] 00:00:00 00:00:00 OVIDIO [address] 2019-12-21 2019-12-21 Outpatient BHIMAREY [facility] [id number] [place] 00:00:00 00:00:00 OVIDIO [address] 2019-09-14 2019-09-14 Outpatient MARZENA [facility] [id number] [place] 00:00:00 00:00:00 OVIDIO [address] 2019-09-14 2019-09-14 Outpatient [facility] [id number] [place] 00:00:00 00:00:00 OVIDIO [address] 2019-06-15 2019-06-15 [facility] [id number] [place] 00:00:00 00:00:00 OVIDIO [address] 2019-06-08 2019-06-08 Outpatient CHRISTO [facility] [id number] [place] 00:00:00 00:00:00 IMAD [address] Results Test Description Test Test Results Result Source Time Comments Comments Pv physiologic 2020-06- Interface, Radiology [place] arterial lower 23 Results In - 06/26/2020 Church extremity 19:45:00 7:46 PM CSTFormatting of complete w khang this note might be different from the original. Vascular Diagnostic Laboratory Physiologic Arterial Leg Report [id number] [address], [place] [address] Pat.Name: SHASHI ERICKSON Kesha.ID: [id number] .Date: 06/26/2020 Refer.MD: LOLLY ELIAS MD Exam Time: 3:29:00 PM Study Type:Physiologic Leg Age: 7 1950,69Y Sex: MALE Sonogrphr: KATHLEEN Stone Pat. Stat.:Outpatient Tape Vol: , CPT - 4: 33334 Echo Event ID:[id number] Order ID: [id number] Reason for Study:Listed heart transplant patient. History of CHF andDM2. Procedures: Ankle/brachial pressures, Digit pressures, Non-imagingcontinuous wave Doppler, PPG waveform tracingRace: SUMMARY:--- --------- DOPPLER SIGNALS DOPPLER SIGNALS ARTERY RIGHT LEFT Common Femoral Normal Normal Superficial Femoral Normal Normal Popliteal Normal Normal Posterior Tibial Normal Normal Dorsalis Pedis Normal Normal SEGMENTAL PRESSURE (mmHg): RIGHT LEFT Brachial 107 105 Low Thigh 136 131 Calf 124 123 Ankle DP 114 115 Ankle PT 121 115 Great Toe 98 93 ANKLE/BRACHIAL INDEX: RIGHT LEFT Dorsalis Pedis 1.07 1.07Posterior Tibial 1.13 1.07 TOE/BRACHIAL INDEX: RIGHT LEFT 0.92 0.87PRELIMINARY FINDINGS:1. Ankle/brachial indices fall into the normal category, bilaterally. 2. Toe/brachial indices fall into the normal category, bilaterallyPHYSICIAN INTERPRETATION:1. Ankle/brachial indices fall into the normal category, bilaterally. 2. Toe/brachial indices fall into the normal category, bilaterally. FINDINGS:--- ---------Signed 06/26/2020 07:45 PMBob Platt MD, [facility] CT Chest Wo 2020-06- [facility], Radiology [place] Contrast 23 Results Incoming - Method ist 15:39:45 06/26/2020 3:42 PM CST EXAMINATION:CT CHEST WO CONTRASTCLINICAL HISTORY:J98.09 Other diseases of bronchus not elsewhere classified, OTHER DISEASES OF BRONCHUSTECHNIQUE: Multiple axial images of the chest were obtained without intravenous contrast. The lack of intravenous contrast reduces the sensitivity of detecting solid organ disease and evaluating vasculature. Sagittal and coronal computerized reformatted images were also obtained.CT imaging was performed with iterative reconstruction techniques and/or automated exposure control to reduce radiation dose.COMPARISON:December 21, 2019FINDINGS:Scattered mucoid impaction with clustered tree-in-bud nodularity, most pronounced in the basal left lower lobe, appears similar to prior. Scarring and volume loss in the left upper lobe is again demonstrated with resolved anterior subpleural consolidation. Stable subpleural opacity more inferiorly (series 304 image 132) is associated with bronchiolectasis and consistent with scarring. No significant central bronchiectasis.Upper retraction of the left hilum and the left hemidiaphragm elevation is stable.No pleural or pericardial effusion.The heart is within normal in size. Stable AICD leads. Aorta is nondilated.No lymphadenopathy.IMPRESSI ON:1.Scattered centrilobular nodularity consistent with chronic postinfectious change remains stable.2.Scarring and volume loss in the left upper lobe with resolved anterior consolidation. No new airspace disease.[id number] ECG 12 lead 2020-03-21 18:56:49 Test Item Value Reference Range Interpretation Comme nts Ventricular rate (test code = 253) 78 Atrial rate (test code = 255) 78 ND interval (test code = 266) 150 QRSD [...] 10:16,-premature ventricular complexes are no longer present[facility] Abdomen Wo Contrast Pelvis Wo Contrast 2019-12-21 15:59:30Hm Interface, Radiology Results - 12/21/2019 4:02 PM CDT EXAMINATION: CT CHEST WO CONTRAST ABDOMEN WO CONTRAST PELVIS WO CONTRASTHISTORY: I42.8 Other cardiomyopathies, I50.42 Chronic combined systolic (congestive) and diastolic (congestive) heart failure, listed for heart transplantTECHNIQUE: CT examination of the chest, abdomen, and [...] loss and consolidative change along the anterior leftlung. No significant change in an other focal consolidation more inferiorly (302/68). No effusion or pneumothorax.ABDOMENLiver: Normal size and contour, without discrete lesion.Gallbladder/Biliary: Gallbladder contains several calcific stones, without findings of acute cholecystitis.Spleen: Normal insize, without discrete lesion.Pancreas: Unremarkable.Adrenal: Unremarkable.Kidneys: No hydronephrosis. There is a left extra renal pelvis. No renal or ureteral stone. Slightly lobulated contour of bothkidneys, suggesting scarring from prior insults.Vascular: Greater abdominal vasculature is unremarkable. No abdominal aortic aneurysm.Lymph Nodes: No abdominal lymphadenopathy.Bowel: Small bowel containing right inguinal hernia without evidence of incarceration. Small bowel is unremarkable. Appendix is normal.Peritoneal/Other: No ascites or fluid collections.PELVISUrogenital: Urinary bladder is unremarkable. The prostate gland is enlarged.Other: No mass, fluid collection or significant adenopathy. M USCULOSKELETALNo new aggressive osseous lesion. Healed extensively remodeled left sixth rib fracture. There are multilevel degenerative spinal changes, featuring flowing ossification along the anteriorlongitudinal ligament at thoracolumbar levels.IMPRESSION:1.Since the prior CT, there is been mild pro gression of volume loss and consolidative change of [...] mucus plugging.3.Cholelithiasis.4.Unchanged unincarcerated small bowel-containing right inguinal hernia.[id number] MethodistCT Head Wo [id number] 15:39:10Hm Interface, Radiology Results 12/21/2019 3:42 PM CDT Study: CT HEAD WO CONTRASTHistory:I42.8 Other cardiomyopathies, I50.42 [...] axial collections. .The visualized paranasal sinuses are wellaerated. The mastoid air cells are well aerated. The calvarium is intact. The visualized orbits areunremarkable.IMPRESSION:No acute or suspicious intracranial abnormality.[facility]-[id number] MethodistXR [id number] 12:51:00Hm Interface, Radiology Results 12/21/2019 12:54 PM CDT EXAMINATION: XR PANOREXCLINICAL HISTORY: I42.8 Other cardiomyopathies, I50.42 Chronic combined systolic (congestive) and diastolic (congestive) heart failure, listed heart transplant patientCOMPARISON: NoneIMPRESSION:No fracture or subluxation.Multiple dental fillings. No significant periapical lucency. Unerupted dentition #1 and #16. Partially interrupted dentition #17 and32.[id number] MethodistSix minute walk w/ pulse [id number] 12:16:59 Test Item Value Reference Range Interpretation [...] Walk Distance in m (test 380 m 361.70-667.70 code = 5633) Heart Rate after 6 [...] Distance Predicted 515 (test code = 5645) [facility], [id number] 12:13:13 Test Item Value Reference Range Interpretation [...] Predicted (test code 90 % = 5445) Maik Church
[2020-10-07 02:38] LABS: Absolute Lymphocytes (CBC) 1.2 K/uL (0.7-4.9); Basophils % 0.8 % (0-1.3); Hematocrit 37.9 % (39.6-49.0); Lymphocytes % 10.5 % (15.3-44.8); MPV 10.8 fL (7.6-11.3); Protime INR 1.4; RBC Red Blood Cell Count 4.03 M/uL (4.33-5.43)
[2020-10-07 02:54] LABS: ALT/SGPT 51 U/L (12-78); AST/SGOT 35 U/L (15-37); Albumin 3.4 g/dL (3.4-5.0); Alkaline Phosphatase 164 U/L (45-117); BUN Blood Urea Nitrogen 24 mg/dL (7-18); Bicarbonate 22 mmol/L (21-32); Bilirubin Direct 0.3 mg/dL (0-0.2); Bilirubin Total 0.8 mg/dL (0.2-1.0); Glucose Level 282 mg/dL (74-106); NT PRO-BNP 6016 pg/mL (<125); Potassium 4.4 mmol/L (3.5-5.1); Protein, Total 7.7 g/dL (6.4-8.2); Sodium Level 137 mmol/L (136-145); Troponin (Emerg Dept Use Only) < 0.02 ng/mL (0.0-0.045)
--- NOTE | 2020-10-07 04:18 | ER ---
Nurse's Notes [facility] Name: Gian Guallpa Age: 69 yrs Sex: Male : 1950 Arrival Date: 10/07/2020 Time: 02:02 Bed 8 Private MD: Diagnosis: Unspecified combined systolic (congestive) and diastolic (congestive) heart failure Presentation: 10/07 02:13 Chief complaint: Patient states: he is having SOB and cough for several days but bb tonight was unable to sleep. Coronavirus screen: cough unrelated to allergies, shortness of breath, Client presents with at least one sign or symptom that may indicate coronavirus-19. Standard/surgical mask placed on the client. Ebola Screen: No symptoms or risks identified at this time. Initial Sepsis Screen: Does the patient meet any 2 criteria? No. Patient's initial sepsis screen is negative. Does the patient have a suspected source of infection? No. Patient's initial sepsis screen is negative. Risk Assessment: Do you want to hurt yourself or someone else? Patient reports no desire to harm self or others. Onset of symptoms was October 04, 2020. 02:13 Method Of Arrival: Ambulatory bb 02:13 Acuity: CELINA 3 bb Triage Assessment: 03:12 General: Appears in no apparent distress. Behavior is calm, cooperative. Pain: Denies ak2 pain. Respiratory: Reports shortness of breath on exertion Onset: The symptoms/episode began/occurred today, the patient has mild shortness of breath. Historical: - Allergies: 02:16 No Known Allergies; bb - PMHx: 02:16 CHF; Diabetes - NIDDM; Hyperlipidemia; Hypertension; Hypothyroidism; bb - PSHx: 02:16 Pace maker/ difibulator S/P 2008; lung sugery s/p 1972; skin cancer removal; bb - Immunization history:: Adult Immunizations up to date. - Social history:: Smoking status: unknown. Screenin:12 Abuse screen: Denies threats or abuse. Denies injuries from another. Nutritional ak2 screening: No deficits noted. Tuberculosis screening: No symptoms or risk factors identified. Fall Risk None identified. Assessment: 03:12 Respiratory: Airway is patent Respiratory effort is even, unlabored, Breath sounds are ak2 clear. 03:13 Cardiovascular: Rhythm is regular. ak2 06:12 General: report called to rn. ak2 Vital Signs: 02:13 BP 116 / 95; Pulse 64; Resp 24 S; Temp 98.3(O); Pulse Ox 96% on R/A; Weight 99.79 kg bb (R); Height 6 ft. 2 in. (187.96 cm) (R); Pain 0/10; 03:14 BP 103 / 63; Pulse 89; Resp 20; Pulse Ox 100% on R/A; ak2 05:47 BP 113 / 71; Pulse 82; Resp 16; Pulse Ox 98% on R/A; ak2 02:13 Body Mass Index 28.25 (99.79 kg, 187.96 cm) ED Course: 02:02 Patient arrived in ED. cf2 02:07 Sanju Flor MD is Attending Physician. tw4 02:15 Triage completed. bb 02:16 Arm band placed on Patient placed in an exam room, on a stretcher, on controller mechanic, bb on pulse oximetry. EKG completed in triage. Results shown to MD. 02:30 XRAY Chest (1 view) In Process Unspecified. EDMS 03:12 Patient has correct armband on for positive identification. ak2 03:12 No provider procedures requiring assistance completed. Inserted saline lock: 18 gauge. ak2 04:17 Candelario Ruiz MD is Hospitalizing Provider. tw4 04:22 Jose D Dempsey is Primary Nurse. ak2 Administered Medications: 04:28 Drug: Lasix (furosemide) 40 mg Route: IVP; Site: right forearm; ak2 Outcome: 04:17 Decision to Hospitalize by Provider. tw4 06:46 Admitted to [facility] [place] ak2 06:46 Patient left the ED. ak2 Signatures: Dispatcher [employer] EDTashia Muñoz RN RN Sanju Koehler MD MD tw4 Brandan Osullivan cf2 Jose D Dempsey ak2
--- NOTE | 2020-10-07 04:18 | EDPHYS ---
Physician Documentation [facility] Name: Gian Guallpa Age: 69 yrs Sex: Male : 1950 Arrival Date: 10/07/2020 Time: 02:02 Bed 8 Private MD: ED Physician Sanju Flor HPI: 10/07 07:01 This 69 yrs old Male presents to ER via Ambulatory with complaints of tw4 Shortness Of Breath. 07:01 The patient has shortness of breath at rest. Onset: The symptoms/episode began/occurred tw4 today. Duration: The symptoms are continuous, and are steadily getting worse. The patient's shortness of breath is aggravated by exertion, is alleviated by nothing. Associated signs and symptoms: The patient has no apparent associated signs or symptoms. Severity of symptoms: At their worst the symptoms were moderate in the emergency department the symptoms are unchanged. The patient has experienced similar episodes in the past, a few times. Historical: - Allergies: 02:16 No Known Allergies; bb - PMHx: 02:16 CHF; Diabetes - NIDDM; Hyperlipidemia; Hypertension; Hypothyroidism; bb - PSHx: 02:16 Pace maker/ difibulator S/P 2008; lung sugery s/p 1972; skin cancer removal; bb - Immunization history:: Adult Immunizations up to date. - Social history:: Smoking status: unknown. ROS: 07:01 Constitutional: Negative for fever, chills, and weight loss, Eyes: Negative for injury, tw4 pain, redness, and discharge, Cardiovascular: Negative for chest pain, palpitations, and edema, Abdomen/GI: Negative for abdominal pain, nausea, vomiting, diarrhea, and constipation, Back: Negative for injury and pain, MS/Extremity: Negative for injury and deformity, Skin: Negative for injury, rash, and discoloration, Neuro: Negative for headache, weakness, numbness, tingling, and seizure. 07:01 Respiratory: Positive for shortness of breath. Exam: 07:01 Constitutional: This is a well developed, well nourished patient who is awake, alert, tw4 and in no acute distress. Head/Face: Normocephalic, atraumatic. Chest/axilla: Normal chest wall appearance and motion. Nontender with no deformity. No lesions are appreciated. Cardiovascular: Regular rate and rhythm with a normal S1 and S2. No gallops, murmurs, or rubs. Normal PMI, no JVD. No pulse deficits. Abdomen/GI: Soft, non-tender, with normal bowel sounds. No distension or tympany. No guarding or rebound. No evidence of tenderness throughout. Back: No spinal tenderness. No costovertebral tenderness. Full range of motion. Skin: Warm, dry with normal turgor. Normal color with no rashes, no lesions, and no evidence of cellulitis. MS/ Extremity: Pulses equal, no cyanosis. Neurovascular intact. Full, normal range of motion. Neuro: Awake and alert, GCS 15, oriented to person, place, time, and situation. Cranial nerves II-XII grossly intact. Motor strength 5/5 in all extremities. Sensory grossly intact. Cerebellar exam normal. Normal gait. 07:01 Respiratory: the patient does not display signs of respiratory distress, Respirations: normal, Breath sounds: decreased breath sounds, are located in both bases. Vital Signs: 02:13 BP 116 / 95; Pulse 64; Resp 24 S; Temp 98.3(O); Pulse Ox 96% on R/A; Weight 99.79 kg bb (R); Height 6 ft. 2 in. (187.96 cm) (R); Pain 0/10; 03:14 BP 103 / 63; Pulse 89; Resp 20; Pulse Ox 100% on R/A; ak2 05:47 BP 113 / 71; Pulse 82; Resp 16; Pulse Ox 98% on R/A; ak2 02:13 Body Mass Index 28.25 (99.79 kg, 187.96 cm) MDM: 02:07 Patient medically screened. tw4 07:03 Differential diagnosis: CHF exacerbation, Chronic Obstructive Pulmonary Disease tw4 Myocardial Infarction pneumonia, pulmonary edema, Pulmonary Embolism. Data reviewed: vital signs, nurses notes. Data interpreted: Pulse oximetry: Interpretation: normal. Counseling: I had a detailed discussion with the patient and/or guardian regarding: the historical points, exam findings, and any diagnostic results supporting the discharge/admit diagnosis. Physician consultation: Candelario Ruiz MD regarding admission, patient's condition, and will see patient in inpatient room. 10/07 02:08 Order name: Basic Metabolic Panel tw 10/07 02:08 Order name: CBC with Diff; Complete Time: 04:09 tw4 10/07 02:08 Order name: LFT's tw4 10/07 02:08 Order name: Magnesium tw4 10/07 02:08 Order name: NT PRO-BNP; Complete Time: 04:09 tw4 10/07 02:08 Order name: PT-INR; Complete Time: 04:09 tw4 10/07 02:08 Order name: Troponin (emerg Dept Use Only); Complete Time: 04:09 tw4 10/07 02:08 Order name: XRAY Chest (1 view) tw4 10/07 02:09 Order name: Basic Metabolic Panel; Complete Time: 04:09 EDMS 10/07 02:09 Order name: Liver (Hepatic) Function; Complete Time: 04:09 EDMS 10/07 02:09 Order name: Magnesium; Complete Time: 04:09 EDMS 10/07 04:28 Order name: COVID-19 : Document "Date of Symptom Onset" if Symptomatic. mw2 10/07 05:43 Order name: SARS-COV-2 RT PCR EDMS 10/07 02:08 Order name: EKG; Complete Time: 02:09 tw4 10/07 02:08 Order name: Cardiac monitoring; Complete Time: 02:52 tw4 10/07 02:08 Order name: EKG - Nurse/Tech; Complete Time: 02:52 tw4 10/07 02:08 Order name: IV Saline Lock; Complete Time: 02:52 tw4 10/07 02:08 Order name: Labs collected and sent; Complete Time: 02:52 tw4 10/07 02:08 Order name: O2 Per Protocol; Complete Time: 02:52 tw4 10/07 02:08 Order name: O2 Sat Monitoring; Complete Time: 02:52 tw4 EC:01 Rate is 10 beats/min. Rhythm is regular with Multifocal PVCs. QRS [place] is Normal. HI tw4 interval is normal. QRS interval is normal. QT interval is normal. No Q waves. No ST changes noted. Clinical impression: NSR w/ Non-specific ST/T Changes and Abnormal EKG without significant change. Interpreted by me. Reviewed by me. Administered Medications: 04:28 Drug: Lasix (furosemide) 40 mg Route: IVP; Site: right forearm; ak2 Disposition: 10/07/20 04:17 Hospitalization ordered by Candelario Ruiz for Inpatient Admission. Preliminary diagnosis is Unspecified combined systolic (congestive) and diastolic (congestive) heart failure. - Bed requested for Telemetry/MedSurg (Inpatient). - Status is Inpatient Admission. ak2 - Condition is Fair. - Problem is an ongoing problem. - Symptoms are unchanged. Signatures: Dispatcher [employer] EDNE Rozina Davis RN RN mw Ballard, Brenda, RN RN bb Wadley, Terrence, MD MD tw4 Jose D Dempsey ak2 Corrections: (The following items were deleted from the chart) 04:44 04:29 CORONAVIRUS ordered. EDNE EDMS 05:50 04:17 Hospitalization Ordered by Candelario Ruiz MD for Inpatient Admission. Preliminary diagnosis is Unspecified combined systolic (congestive) and diastolic (congestive) heart failure. Bed requested for Telemetry/MedSurg (Inpatient). Status is Inpatient Admission. Condition is Fair. Problem is an ongoing problem. Symptoms are unchanged. tw4 06:46 05:50 10/07/2020 04:17 Hospitalization Ordered by Candelario Ruiz MD for Inpatient ak2 Admission. Preliminary diagnosis is Unspecified combined systolic (congestive) and diastolic (congestive) heart failure. Bed requested for Telemetry/MedSurg (Inpatient). Status is Inpatient Admission. Condition is Fair. Problem is an ongoing problem. Symptoms are unchanged. mw
[2020-10-07] MEDS ORDERED: FUROSEMIDE 40 MG/4 ML VIAL ONE (04:46)
--- NOTE | 2020-10-07 05:04 | P.HP ---
Certification for Inpatient Patient admitted to: Inpatient With expected LOS: >2 Midnights Patient will require the following post-hospital care: None Practitioner: I am a practitioner with admitting privileges, knowledge of patient current condition, hospital course, and medical plan of care. Services: Services provided to patient in accordance with Admission requirements found in Title 42 Section 412.3 of the Code of Federal Regulations Patient History Date of Service: 10/07/20 Reason for admission: chf exacerbation History of Present Illness: Mr. Guallpa is a 69 yo M with CHF (EF 20% 06/2020, pacemaker), DM, HLD, HTN and hypothyroidism here today with fatigue and SOB since . he reports cough, orthopnea, PND, GIORDANO, wheezing. Denies pleuritic pain, edema. He sees Dr. Fischer at [facility]. Previously was on heart transplant list, but was taken off at age 69. BUN 24, Cr 1.37, GFR 51. Glu 282. BNP 6016. Allergies No Known Allergies Allergy (Verified 03/10/14 11:32) Home Medications: Digoxin [Lanoxin*] 125 mcg PO DAILY 03/09/14 Levothyroxine [Synthroid*] 137 mcg PO [id number] 03/09/14 Lisinopril [Zestril] 2.5 mg PO DAILY 03/09/14 Magnesium Oxide [Mag 0X*] 400 mg PO BID 03/09/14 Metformin HCl [Glucophage] 1,000 mg PO BID 03/09/14 Simvastatin 20 mg PO DAILY 03/09/14 Spironolactone [Aldactone*] 25 mg PO DAILY 03/09/14 Torsemide [Demadex*] 10 mg PO BID 03/09/14 carvediloL [Coreg*] 25 mg PO BID 03/09/14 Sotalol HCl [Betapace*] 80 mg PO BID 6AM 6PM #60 tab 03/10/14 - Past Medical/Surgical History Diabetic: Yes -: NIDDM -: HTN -: HYPERLIPIDEMIA -: THYROID PROBLEM -: GRAVES DISEASE -: CHF -: PACEMAKER/DEFIBRILLATOR -: LUNG SX -: skin cx removal - Family History Father -: Heart disease Mother -: Lung disease - Social History Smoking Status: Never smoker Alcohol use: No CD- Drugs: No Caffeine use: Yes Place of Residence: Home Review of Systems 10-point ROS is otherwise unremarkable Respiratory: Cough, Shortness of Breath, SOB with Excertion, Pleuritic Pain, Wheezing Cardiovascular: Orthopnea, Paroxysmal Noc. Dyspnea Physical Examination - Physical Exam General: Alert, In no apparent distress HEENT: Atraumatic, PERRLA, Mucous membr. moist/pink, EOMI, Sclerae nonicteric Neck: Supple, 2+ carotid pulse no bruit, No LAD, Without JVD or thyroid abnormality Respiratory: Diminished, Crackles/rales Cardiovascular: Regular rate/rhythm, Normal S1 S2 Gastrointestinal: Normal bowel sounds, No tenderness Musculoskeletal: No tenderness Integumentary: No rashes Neurological: Normal gait, Normal speech, Normal strength at 5/5 x4 extr, Normal tone, Normal affect Lymphatics: No axilla or inguinal lymphadenopathy - Studies Laboratory Data (last 24 hrs) 10/07/20 02:20: PT 16.2 H, INR 1.40 10/07/20 02:20: WBC 11.60 H, Hgb 12.2 L, Hct 37.9 L, Plt Count 203 10/07/20 02:20: Sodium 137, Potassium 4.4, BUN 24 H, Creatinine 1.37 H, Glucose 282 H, Magnesium 2.0, Total Bilirubin 0.8, AST 35, ALT 51, Alkaline Phosphatase 164 H Assessment and Plan - Problems (Diagnosis) (1) Chronic systolic CHF (congestive heart failure) Onset Date: 03/09/14 Current Visit: No Status: Acute (2) Diabetes mellitus Onset Date: 03/09/14 Current Visit: No Status: Chronic Qualifiers: Diabetes mellitus type: type 2 Diabetes mellitus penitentiary insulin use: without watermaster use Diabetes mellitus complication status: without complication Qualified Code(s): E11.9 - Type 2 diabetes mellitus without c omplications (3) Hyperlipidemia Onset Date: 03/09/14 Current Visit: No Status: Chronic Qualifiers: Hyperlipidemia type: unspecified Qualified Code(s): E78.5 - Hyperlipidemia, unspecified (4) Hypertension Onset Date: 03/09/14 Current Visit: No Status: Chronic Qualifiers: Hypertension type: essential hypertension Qualified Code(s): I10 - Essential (primary) hypertension (5) Hypothyroidism Onset Date: 03/09/14 Current Visit: No Status: Chronic Qualifiers: Hypothyroidism type: unspecified Qualified Code(s): E03.9 - Hypothyroidism, unspecified - Plan continue IV lasix daily weights, fluid restriction on telemetry O2 as needed A1c and thyroid panel pending accuchecks and sliding scale insulin reconcile and continue home medications BP stable, continue to monitor Discharge Plan: Home Plan to discharge in: 48 Hours - Advance Directives Does patient have a Living Will: No Does patient have a Durable POA for Healthcare: No - Code Status/Comfort Care Code Status Assessed: Yes (full code) Critical Care: No Time Spent Managing Pts Care (In Minutes): 70
[2020-10-07] MEDS ORDERED: carvediloL 25 MG TAB PO SCH (06:26)
[2020-10-07] MEDS ORDERED: ONDANSETRON 4 MG/2 ML VIAL IV PRN (06:26)
[2020-10-07] MEDS ORDERED: ACETAMINOPHEN 500 MG TAB PO PRN (06:26)
[2020-10-07 06:41] VITALS: BMI 28.3
[2020-10-07] MEDS: INSULIN -REGULAR HUMAN 50 UNIT/0.5 ML ML SQ SCH ×2 (07:30→11:30)
[2020-10-07 08:13] LABS: Albumin 3.3 g/dL (3.4-5.0); Bilirubin Total 1.2 mg/dL (0.2-1.0); Potassium 3.9 mmol/L (3.5-5.1); Protein, Total 7.5 g/dL (6.4-8.2); Thyroid Stimulating Hormone 2.03 uIU/mL (0.360-3.740)
[2020-10-07] MEDS ORDERED: SPIRONOLACTONE 25 MG TABLET PO SCH (09:00)
[2020-10-07] MEDS ORDERED: ENOXAPARIN 40 MG/0.4 ML SQ SCH (09:00)
[2020-10-07] MEDS ORDERED: DIGOXIN 0.125 MG TABLET PO SCH (09:00)
[2020-10-07] MEDS ORDERED: SACUBITRIL/VALSARTAN 49/51 MG TAB PO SCH (09:00)
[2020-10-07] MEDS ORDERED: FUROSEMIDE 40 MG/4 ML VIAL IV SCH (09:00)
--- NOTE | 2020-10-07 09:40 | RAD REPORT ---
EXAM DESCRIPTION: Bharathi Single View10/07/2020 2:30 am CLINICAL HISTORY: Shortness of breath COMPARISON: June 2020 FINDINGS: Left lung opacities appear resolved Lungs appear clear of acute infiltrate. Left pleural thickening present. Heart remains enlarged. Pacemaker leads in place
--- NOTE | 2020-10-07 14:34 | P.DS ---
Admission Date: 10/07/20 Discharge Date: 10/07/20 Disposition: ROUTINE DISCHARGE Discharge Condition: FAIR Reason for Admission: chf exacerbation - Problems (1) Acute on chronic systolic heart failure Current Visit: Yes Status: Acute (2) Cardiomyopathy Onset Date: 03/09/14 Current Visit: No Status: Acute (3) Diabetes mellitus Onset Date: 03/09/14 Current Visit: No Status: Chronic Qualifiers: Diabetes mellitus type: type 2 Diabetes mellitus mcfp insulin use: without mcfp use Diabetes mellitus complication status: without complication Qualified Code(s): E11.9 - Type 2 diabetes mellitus without complications (4) Hyperlipidemia Onset Date: 03/09/14 Current Visit: No Status: Chronic Qualifiers: Hyperlipidemia type: unspecified Qualified Code(s): E78.5 - Hyperlipidemia, unspecified (5) Hypertension Onset Date: 03/09/14 Current Visit: No Status: Chronic Qualifiers: Hypertension type: essential hypertension Qualified Code(s): I10 - Essential (primary) hypertension Brief History of Present Illness: 69-year-old gentleman with a history of systolic heart failure, cardiomyopathy, EF of 20%, status post AICD, type 2 diabetes hypertension hyperlipidemia presented to the emergency department with a complaint of shortness of breath with associated orthopnea, paroxysmal nocturnal dyspnea, and nonproductive cough. He denied any chest pain. Chest x-ray done in the emergency department looked clear of acute infiltrate or congestion. Patient was not requiring oxygen. He was hospitalized for further management of CHF exacerbation. Hospital Course: Patient treated with IV Lasix. His symptoms resolved with the diuresis. Patient admitted to noncompliance with his diuretic as well as salt restricted. His vitals were stable. The orthopnea, shortness of breath and cough resolved. He ambulated without shortness of breath. Patient's symptoms have resolved and deemed stable for discharge. I discussed with him the need to be compliant with his diuretics and also adhered to salt restricted diet. Patient deemed stable for discharge. Vital Signs/Physical Exam: Temp Pulse Resp BP Pulse Ox 98 F 85 16 102/60 93 10/07/20 08:00 10/07/20 08:00 10/07/20 08:00 10/07/20 08:00 10/07/20 08:00 General: Alert, In no apparent distress, Oriented x3 HEENT: Mucous membr. moist/pink Neck: Supple, JVD not distended Respiratory: Clear to auscultation bilaterally, Normal air movement Cardiovascular: No edema, Regular rate/rhythm, Normal S1 S2 Gastrointestinal: Soft and benign, Non-distended, No tenderness Musculoskeletal: No swelling, No tenderness Integumentary: No rashes, No erythema Neurological: Normal speech, Normal strength at 5/5 x4 extr Laboratory Data at Discharge: WBC 11.60 K/uL (4.3-10.9) H 10/07/20 02:20 Hgb 12.2 g/dL (13.6-17.9) L 10/07/20 02:20 Hct 37.9 % (39.6-49.0) L 10/07/20 02:20 Plt Count 203 K/uL (152-406) 10/07/20 02:20 PT 16.2 SECONDS (9.5-12.5) H 10/07/20 02:20 INR 1.40 10/07/20 02:20 Sodium 138 mmol/L (136-145) 10/07/20 07:06 Potassium 3.9 mmol/L (3.5-5.1) 10/07/20 07:06 BUN 24 mg/dL (7-18) H 10/07/20 07:06 Creatinine 1.19 mg/dL (0.55-1.3) 10/07/20 07:06 Glucose 202 mg/dL (74-106) H 10/07/20 07:06 Magnesium 2.0 mg/dL (1.8-2.4) 10/07/20 02:20 Total Bilirubin 1.2 mg/dL (0.2-1.0) H 10/07/20 07:06 AST 36 U/L (15-37) 10/07/20 07:06 ALT 49 U/L (12-78) 10/07/20 07:06 Alkaline Phosphatase 144 U/L (45-117) H 10/07/20 07:06 Triglycerides 61 mg/dL (<150) 10/07/20 07:06 Cholesterol 98 mg/dL (<200) 10/07/20 07:06 HDL Cholesterol 32 mg/dL (40-60) L 10/07/20 07:06 Cholesterol/HDL Ratio 3.06 10/07/20 07:06 Home Medications: Digoxin [Lanoxin*] 125 mcg PO DAILY 03/09/14 Levothyroxine [Synthroid*] 137 mcg PO [id number] 03/09/14 Magnesium Oxide [Mag 0X*] 400 mg PO BID 03/09/14 Metformin HCl [Glucophage] 1,000 mg PO BID 03/09/14 Simvastatin 20 mg PO DAILY 03/09/14 Spironolactone [Aldactone*] 25 mg PO DAILY 03/09/14 Torsemide [Demadex*] 10 mg PO BID 03/09/14 carvediloL [Coreg*] 25 mg PO BID 03/09/14 Sotalol HCl [Betapace*] 80 mg PO BID 6AM 6PM #60 tab 03/10/14 Sacubitril/Valsartan [Entresto 49 mg-51 mg Tablet] 1 tab PO BID tab 10/07/20 Physician Discharge Instructions: Please continue taking your diuretics-Torsemide and Aldactone, adhere to salt restricted diet. Diet: AHA Activity: Ad lashay Followup: NONE,NONE [Primary Care Provider] - 1 Week
[2020-10-07 15:03] VITALS: BP 90/60; TEMP 97.1
[2020-10-07 15:14] VITALS: O2SAT 96
[2020-10-07] MEDS ORDERED: ATORVASTATIN 10 MG TAB PO SCH (21:00)
== END 2020-10-07 15:55 | disposition home or self-care (01) | DRG 293 ==
LOC: ER 01:58 → ERHOLD 04:48 → 2ND 06:11
PROVIDERS: ADMIT Internal Medicine; ATTEND Internal Medicine
DX: I11.0 Hypertensive heart disease with heart failure (principal); I50.23 Acute on chronic systolic (congestive) heart failure; E11.9 Type 2 diabetes mellitus without complications; E03.9 Hypothyroidism, unspecified; E78.5 Hyperlipidemia, unspecified; Z95.810 Presence of automatic (implantable) cardiac defibrillator; Z85.828 Personal history of other malignant neoplasm of skin; Z79.890 Hormone replacement therapy; Z79.84 Long term (current) use of oral hypoglycemic drugs; Z91.19 Patient's noncompliance with other medical treatment and regimen; Z79.899 Other long term (current) drug therapy; Z20.822 Contact with and (suspected) exposure to COVID-19
CPT/HCPCS: 36415; 71045; 80048; 80053; 80061; 80076; 82947; 83036; 83735; 83880; 84439; 84443; 84484; 85025; 85610; 93005; 94760; 96374; 99285; J1650; J1940; U0003

== ENCOUNTER 2021-01-17 03:24 | Inpatient (IN) | payer OTHER ==
[2021-01-17] MEDS ORDERED: FAMOTIDINE 20 MG/2 ML VIAL IV ONE (04:38)
[2021-01-17] MEDS ORDERED: FUROSEMIDE 40 MG/4 ML VIAL ONE ×2 (04:39→09:25)
[2021-01-17 05:02] LABS: Absolute Lymphocytes (CBC) 0.7 K/uL (0.7-4.9); Basophils % 0.4 % (0-1.3); Hematocrit 39.1 % (39.6-49.0); Lymphocytes % 5.7 % (15.3-44.8); RBC Red Blood Cell Count 4.18 M/uL (4.33-5.43)
[2021-01-17 05:09] LABS: Protime INR 1.13
--- NOTE | 2021-01-17 05:13 | EDPHYS ---
Physician Documentation [facility] Name: Gian Guallpa Age: 70 yrs Sex: Male : 1950 Arrival Date: 01/17/2021 Time: 03:25 Bed 17 Private MD: ED Physician Travis Reardon HPI: 01/17 04:08 This 70 yrs old Male presents to ER via Ambulatory with complaints of darryl Shortness Of Breath, Low O2-86%. 04:08 The patient has shortness of breath at rest. Onset: The symptoms/episode began/occurred darryl just prior to arrival. Duration: The symptoms are continuous, and are steadily getting worse. The patient's shortness of breath is aggravated by exertion, light activity, talking, walking. Associated signs and symptoms: The patient has no apparent associated signs or symptoms. Severity of symptoms: At their worst the symptoms were mild moderate in the emergency department the symptoms are unchanged. The patient has not experienced similar symptoms in the past. Historical: - Allergies: 03:53 No Known Allergies; wg - PMHx: 03:53 CHF; Diabetes - NIDDM; Hyperlipidemia; Hypertension; Hypothyroidism; wg - Immunization history:: Adult Immunizations up to date. - Social history:: Smoking status: Patient uses. - Family history:: not pertinent. - Code Status:: Full code. ROS: 04:08 Constitutional: Negative for fever, chills, and weight loss, Eyes: Negative for injury, darryl pain, redness, and discharge, ENT: Negative for injury, pain, and discharge, Neck: Negative for injury, pain, and swelling, Cardiovascular: Negative for chest pain, palpitations, and edema, Abdomen/GI: Negative for abdominal pain, nausea, vomiting, diarrhea, and constipation, Back: Negative for injury and pain, : Negative for injury, bleeding, discharge, and swelling, MS/Extremity: Negative for injury and deformity, Skin: Negative for injury, rash, and discoloration, Neuro: Negative for headache, weakness, numbness, tingling, and seizure, Psych: Negative for depression, anxiety, suicide ideation, homicidal ideation, and hallucinations, Allergy/Immunology: Negative for hives, rash, and allergies, Endocrine: Negative for neck swelling, polydipsia, polyuria, polyphagia, and marked weight changes, Hematologic/Lymphatic: Negative for swollen nodes, abnormal bleeding, and unusual bruising. 04:08 Respiratory: Positive for cough, shortness of breath, on exertion. Exam: 04:08 Constitutional: This is a well developed, well nourished patient who is awake, alert, darryl and in no acute distress. Head/Face: Normocephalic, atraumatic. Eyes: Pupils equal round and reactive to light, extra-ocular motions intact. Lids and lashes normal. Conjunctiva and sclera are non-icteric and not injected. Cornea within normal limits. Periorbital areas with no swelling, redness, or edema. ENT: Nares patent. No nasal discharge, no septal abnormalities noted. Tympanic membranes are normal and external auditory canals are clear. Oropharynx with no redness, swelling, or masses, exudates, or evidence of obstruction, uvula midline. Mucous membranes moist. Neck: Trachea midline, no thyromegaly or masses palpated, and no cervical lymphadenopathy. Supple, full range of motion without nuchal rigidity, or vertebral point tenderness. No Meningismus. Chest/axilla: Normal chest wall appearance and motion. Nontender with no deformity. No lesions are appreciated. Cardiovascular: Regular rate and rhythm with a normal S1 and S2. No gallops, murmurs, or rubs. Normal PMI, no JVD. No pulse deficits. Abdomen/GI: Soft, non-tender, with normal bowel sounds. No distension or tympany. No guarding or rebound. No evidence of tenderness throughout. Back: No spinal tenderness. No costovertebral tenderness. Full range of motion. Male : Normal genitalia with no discharge or lesions. Skin: Warm, dry with normal turgor. Normal color with no rashes, no lesions, and no evidence of cellulitis. MS/ Extremity: Pulses equal, no cyanosis. Neurovascular intact. Full, normal range of motion. Neuro: Awake and alert, GCS 15, oriented to person, place, time, and situation. Cranial nerves II-XII grossly intact. Motor strength 5/5 in all extremities. Sensory grossly intact. Cerebellar exam normal. Normal gait. Psych: Awake, alert, with orientation to person, place and time. Behavior, mood, and affect are within normal limits. 04:08 ECG was reviewed by the Attending Physician. 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 2 in. (187.96 cm); Pain 4/10; 04:56 BP 107 / 74; Pulse 90; Resp 17; Pulse Ox 96% on 3 lpm NC; Pain 0/10; bc5 03:30 Body Mass Index 28.25 (99.79 kg, 187.96 cm) wg MDM: 03:31 Patient medically screened. darryl 04:10 Differential diagnosis: asthma, CHF exacerbation, pneumonia, Pneumothorax pulmonary darryl edema, Pulmonary Embolism reactive airway disease, Sepsis. Antibiotic administration: Not indicated. The patient's Wells Deep Vein Thrombosis Score was calculated as follows: Total Score: 0-2 Pts- Low Risk. The patient's pulmonary embolism risk score was calculated as follows: Total Score: 0-2 points. This patient was found to be at low risk for a pulmonary embolism by using the Well's assessment criteria. Immunization status: Pneumococcal vaccine: Influenza vaccine: Data reviewed: vital signs, nurses notes, lab test result(s), EKG, radiologic studies, CT scan, plain films. 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 Test interpretation: by ED physician or midlevel provider: ECG, plain radiologic studies. Counseling: I had a detailed discussion with the patient and/or guardian regarding: the historical points, exam findings, and any diagnostic results supporting the discharge/admit diagnosis, lab results, radiology results, the need for further work-up and treatment in the hospital. 01/17 03:33 Order name: Basic Metabolic Panel [facility] 01/17 03:33 Order name: CBC with Diff [facility] 01/17 03:33 Order name: LFT's [facility] 01/17 03:33 Order name: Magnesium; Complete Time: 05:39 [facility] 01/17 03:33 Order name: NT PRO-BNP; Complete Time: 05:39 [facility] 01/17 03:33 Order name: PT-INR; Complete Time: 05:39 [facility] 01/17 03:33 Order name: Troponin (emerg Dept Use Only); Complete Time: 05:39 [facility] 01/17 03:33 Order name: Lipase; Complete Time: 05:39 [facility] 01/17 03:33 Order name: Blood Culture Adult (2) [facility] 01/17 03:33 Order name: Basic Metabolic Panel; Complete Time: 05:39 [facility] 01/17 03:33 Order name: CBC with Automated Diff [facility] 01/17 03:33 Order name: Liver (Hepatic) Function; Complete Time: 05:39 [facility]MA 01/17 03:56 Order name: Procalcitonin la1 01/17 03:33 Order name: XRAY Chest (1 view) [facility] 01/17 03:33 Order name: EKG; Complete Time: 03:33 [facility] 01/17 03:33 Order name: Cardiac monitoring; Complete Time: 03:50 [facility] 01/17 03:33 Order name: EKG - Nurse/Tech; Complete Time: 03:50 [facility] 01/17 03:33 Order name: IV Saline Lock; Complete Time: 03:50 [facility] 01/17 03:33 Order name: Labs collected and sent; Complete Time: 04:54 [facility] 01/17 03:33 Order name: O2 Per Protocol; Complete Time: 03:50 [facility] 01/17 04:12 Order name: Digoxin [facility] 01/17 05:08 Order name: SARS-COV-2 RT PCR; Complete Time: 05:10 [facility] 01/17 05:14 Order name: Manual Differential [facility] 01/17 08:53 Order name: Glucose, Ancillary Testing [facility] 01/17 12:50 Order name: Glucose, Ancillary Testing [facility] 01/17 03:33 Order name: O2 Sat Monitoring; Complete Time: 03:50 [facility] 01/17 03:33 Order name: Urine Dipstick-Ancillary (obtain specimen) [facility] Administered Medications: 03:47 CANCELLED (Physician Discretion): NS 0.9% 1000 ml IV at 75 ml/hr continuous bb 04:54 Drug: Lasix (furosemide) 40 mg Route: IVP; Site: right antecubital; bc5 05:48 Follow up: Urine output 800 ml bc5 04:54 Drug: Pepcid (famotidine) 20 mg Route: IVP; Site: right antecubital; bc5 05:48 Follow up: Response: No adverse reaction bc5 05:48 Drug: Magnesium Sulfate 1 grams Route: IVPB; Infused Over: 1 hrs; Site: right bc5 antecubital; 07:08 Follow up: IV Status: Completed infusion bc5 Disposition Summary: 01/17/21 05:13 Hospitalization Ordered Hospitalization Status: Observation darryl Condition: Stable darryl Problem: new darryl Symptoms: have improved darryl Bed/Room Type: Standard darryl Provider: Isidro Gupta(01/17/21 05:13) darryl Location: Telemetry/MedSurg (Inpatient)(01/17/21 12:50) nj Room Assignment: [facility](01/17/21 12:50) nj Diagnosis - Unspecified combined systolic (congestive) and diastolic (congestive) heart failure darryl - Dyspnea darryl - Hypoxemia darryl - Hypomagnesemia darryl Forms: - Medication Reconciliation Form darryl - SBAR form darryl Signatures: Dispatcher [employer] EDMS Travis Reardon MD MD cha Attema, Lee, MORNING SHOW PRODUCER-C MORNING SHOW PRODUCER-Cla1 Keisha Arzola RN RN tl1 Taniya Stout mt, Liam, RN Lyubov Vance RN RN bc5 Tashia Arteaga RN bb Corrections: (The following items were deleted from the chart) 03:47 03:33 NS 0.9% 1000 ml IV at 75 ml/hr continuous ordered. darryl bb 04:01 03:53 Immunization history: Adult Immunizations up to date, [facility] 04: 03:53 Social history: Smoking status: Patient uses [facility] 04:01 03:53 Code Status: Full code [facility] 04:08 03:33 CORONAVIRUS+MR.LAB.BRZ ordered. EDMS EDMS 05:13 05:13 Neto Rodney darryl darryl 05:26 05:13 Telemetry/MedSurg (observation) darryl tl1 05:26 05:13 darryl tl1 12:50 05:26 [facility] ER HOLD tl1 mt 12:50 05:26 ERHOLD- tl1 mt
--- NOTE | 2021-01-17 05:13 | ER ---
Nurse's Notes [facility] Name: Gian Guallpa Age: 70 yrs Sex: Male : 1950 Arrival Date: 01/17/2021 Time: 03:25 Bed 17 Private MD: Diagnosis: Unspecified combined systolic (congestive) and diastolic (congestive) heart failure;Dyspnea;Hypoxemia;Hypomagnesemia Presentation: 01/17 03:30 Chief complaint: Patient states: SOB, cough, chills, aches and fever that started and wg awoke approx one hour ago. Pt arrived in obvious respiratory distress with cool pale diaphoretic skin and a room air sat of 86%.. Pt denies CP, N/V/D. Pt states he has CHF and this feels like one of those episodes when he get SOB. Coronavirus screen: Vaccine status: Patient reports receiving the 2nd dose of the covid vaccine. Date August 28, 2020. Ebola Screen: Patient negative for fever greater than or equal to 101.5 degrees Fahrenheit, and additional compatible Ebola Virus Disease symptoms Patient denies exposure to infectious person. Patient denies travel to an Ebola-affected area in the 21 days before illness onset. No symptoms or risks identified at this time. Initial Sepsis Screen: Does the patient meet any 2 criteria? No. Patient's initial sepsis screen is negative. Does the patient have a suspected source of infection? No. Patient's initial sepsis screen is negative. Risk Assessment: Do you want to hurt yourself or someone else? Patient reports no desire to harm self or others. Onset of symptoms was January 17, 2021 at 02:30. 03:30 Acuity: CELINA 2 03:30 Method Of Arrival: Ambulatory 03:42 Note Lungs clear but slightly diminished. No peripheral edema noted. Triage Assessment: 03:30 General: Appears distressed, uncomfortable, well groomed, well developed, Behavior is wg cooperative, anxious. Pain: Complains of pain in generalized body aches. EENT: No deficits noted. Neuro: No deficits noted. Cardiovascular: No deficits noted. Respiratory: Reports shortness of breath pain with cough Pain is 2 out of 10 on a pain scale. Airway is patent Trachea midline Respiratory effort is even, labored, Respiratory pattern is regular, symmetrical, Breath sounds are clear bilaterally. Breath sounds are diminished Onset: The symptoms/episode began/occurred suddenly, Denies Parent/caregiver reports the patient having. GI: No deficits noted. : No deficits noted. Derm: No deficits noted. Musculoskeletal: No deficits noted. Historical: - Allergies: 03:53 No Known Allergies; wg - PMHx: 03:53 CHF; Diabetes - NIDDM; Hyperlipidemia; Hypertension; Hypothyroidism; wg - Immunization history:: Adult Immunizations up to date. - Social history:: Smoking status: Patient uses. - Family history:: not pertinent. - Code Status:: Full code. Screenin:53 Abuse screen: Denies threats or abuse. Denies injuries from another. Nutritional bc5 screening: No deficits noted. Tuberculosis screening: No symptoms or risk factors identified. Fall Risk None identified. Assessment: 04:55 Cardiovascular: Rhythm is bc5 04:55 Respiratory: Airway is patent. bc5 Vital Signs: 03:30 BP 103 / 87; Pulse 96; Resp 24; Temp 99.4; Pulse Ox 93% on 2 lpm NC; Weight 99.79 kg; wg Height 6 ft. 2 in. (187.96 cm); Pain 4/10; 04:56 BP 107 / 74; Pulse 90; Resp 17; Pulse Ox 96% on 3 lpm NC; Pain 0/10; bc5 03:30 Body Mass Index 28.25 (99.79 kg, 187.96 cm) ED Course: 03:25 Patient arrived in ED. 03:30 Travis Reardon MD is Attending Physician. darryl 03:46 XRAY Chest (1 view) In Process Unspecified. EDMS 03:53 Triage completed. wg 03:53 Arm band placed on right wrist. EKG completed in triage. Results shown to MD. EKG wg completed in triage. Results shown to MD. 04:09 Lyubov Vance, RN is Primary Nurse. bc5 04:54 No provider procedures requiring assistance completed. Inserted saline lock: 18 gauge bc5 in right antecubital area, using aseptic technique. 04:55 Patient has correct armband on for positive identification. Bed in low position. Call bc5 light in reach. Side rails up X 1. Adult w/ patient. 05:12 Neto Rodney MD is Hospitalizing Provider. darryl 05:13 Hospitalizing Provider role handed off by Neto Rodney MD darryl 05:13 Isidro Gupta DO is Hospitalizing Provider. [facility] Administered Medications: 03:47 CANCELLED (Physician Discretion): NS 0.9% 1000 ml IV at 75 ml/hr continuous bb 04:54 Drug: Lasix (furosemide) 40 mg Route: IVP; Site: right antecubital; bc5 05:48 Follow up: Urine output 800 ml 5 04:54 Drug: Pepcid (famotidine) 20 mg Route: IVP; Site: right antecubital; bc5 05:48 Follow up: Response: No adverse reaction 5 05:48 Drug: Magnesium Sulfate 1 grams Route: IVPB; Infused Over: 1 hrs; Site: right bc5 antecubital; 07:08 Follow up: IV Status: Completed infusion [facility] Output: 05:48 Urine: 800ml; Total: 800ml. 5 Outcome: 05:13 Decision to Hospitalize by Provider. [facility] 13:37 Patient left the ED. tr6 Signatures: Dispatcher [employer] EDMS Travis Reardon MD MD cha Ramnanan, Tiffany, RN RN tr6 Maral Leger Liam, RN Lyubov Vance RN RN bc5 Tashia Arteaga RN Corrections: (The following items were deleted from the chart) [id number] 03:42 Chief complaint: Patient states: SOB, cough, chills, aches and fever that started wg and awoke approx one hour ago. Pt arrived in obvious respiratory distress with cool pale diaphoretic skin and a room air sat of 86%.. Pt denies CP, N/V/D. Pt states he has CHF and this feels like one of those episodes when he get SOB. 03:58 03:42 Coronavirus screen: Vaccine status: Patient reports receiving the 2nd dose of the covid vaccine. Date August 28, 2020 58 03:42 Ebola Screen: Patient negative for fever greater than or equal to 101.5 degrees wg Fahrenheit, and additional compatible Ebola Virus Disease symptoms Patient denies exposure to infectious person. Patient denies travel to an Ebola-affected area in the 21 days before illness onset. No symptoms or risks identified at this time. 03:58 03:42 Initial Sepsis Screen: Does the patient meet any 2 criteria? No. Patient's initial sepsis screen is negative. Does the patient have a suspected source of infection? No. Patient's initial sepsis screen is negative. 03:42 Risk Assessment: Do you want to hurt yourself or someone else? Patient reports no desire to harm self or others. 03:42 Note Lungs clear but slightly diminished. No peripheral edema noted. [facility] 03:42 Onset of symptoms was January 17, 2021 at 02:30 [facility] 03:42 Method Of Arrival: Ambulatory [facility] 03:42 BP 103 / 87; Pulse 96bpm; Resp 24bpm; Pulse Ox 93% 2 lpm Nasal Cannula; Temp wg 99.4F; 99.79 kg; Height 6 ft. 2 in.; BMI: 28.2; Pain 4/10; 03:42 Acuity: CELINA 2 [facility] 04: 03:53 Immunization history: Adult Immunizations up to date, [facility] 04: 03:53 Social history: Smoking status: Patient uses [facility] 04: 03:53 Code Status: Full code [facility] 04: 03:42 Note Lungs clear but slightly diminished. No peripheral edema noted. [facility] 04:03 03:53 General: Appears distressed, uncomfortable, well groomed, well developed, wg Behavior is cooperative, anxious, 04: 03:53 Pain: Complains of pain in generalized body aches. [facility] 04:03 03:53 EENT: No deficits noted. [facility] 04:03 03:53 Neuro: No deficits noted. [facility] 04:03 03:53 Cardiovascular: No deficits noted. [facility] 04:03 03:53 Respiratory: Reports shortness of breath pain with cough Pain is 2 out of 10 on a pain scale. Airway is patent Trachea midline Respiratory effort is even, labored, Respiratory pattern is regular, symmetrical, Breath sounds are clear bilaterally. Breath sounds are diminished Onset: The symptoms/episode began/occurred suddenly, Denies Parent/caregiver reports the patient having 04: 03:53 GI: No deficits noted. [facility] 04: 03:53 : No deficits noted. [facility] 04: 03:53 Derm: No deficits noted. [facility] 04:03 03:53 Musculoskeletal: No deficits noted. [facility]
[2021-01-17 05:24] LABS: ALT/SGPT 15 U/L (12-78); AST/SGOT 11 U/L (15-37); Albumin 3.4 g/dL (3.4-5.0); Alkaline Phosphatase 86 U/L (45-117); BUN Blood Urea Nitrogen 27 mg/dL (7-18); Bicarbonate 24 mmol/L (21-32); Bilirubin Direct 0.2 mg/dL (0-0.2); Bilirubin Total 0.8 mg/dL (0.2-1.0); Glucose Level 203 mg/dL (74-106); Lipase 71 U/L (73-393); Magnesium 1.6 mg/dL (1.8-2.4); NT PRO-BNP 2055 pg/mL (<125); Potassium 4.3 mmol/L (3.5-5.1); Protein, Total 8.2 g/dL (6.4-8.2); Sodium Level 135 mmol/L (136-145); Troponin (Emerg Dept Use Only) < 0.02 ng/mL (0.0-0.045)
--- NOTE | 2021-01-17 05:35 | P.HP ---
Certification for Inpatient Patient admitted to: Inpatient With expected LOS: >2 Midnights Patient will require the following post-hospital care: None Practitioner: I am a practitioner with admitting privileges, knowledge of patient current condition, hospital course, and medical plan of care. Services: Services provided to patient in accordance with Admission requirements found in Title 42 Section 412.3 of the Code of Federal Regulations Patient History Date of Service: 01/17/21 Primary Care Provider: Florecita Alejo [facility] cardiology group Reason for admission: CHF exacerbation History of Present Illness: 70-year-old male with history of diabetes mellitus type 2, chronic systolic congestive heart failure, hypertension, hyperlipidemia, hypothyroidism presents emerge department for shortness of breath. Patient reports that he is changed to [facility] from his other diabetic medication and noticed increased urination so he quit taking his diuretics at home. Patient reports he has been off of his torsemide for the last 1 to 1.5 months. Patient was evaluated in the emergency department found to be hypoxic on room air saturating in the 85-87 range, patient cannot follow nasal cannula at this time lab significant for white blood cell count 11.8 hemoglobin 12.9 hematocrit 39.1 sodium 135 BUN 27 GFR 57 glucose 203 magnesium 1.6 BNP 2055 Covid test negative chest x-ray appears to show volume overload pattern. ED provider wishes to admit for CHF exacerbation. Allergies No Known Allergies Allergy (Verified 10/07/20 06:47) Home Medications: Digoxin [Lanoxin*] 125 mcg PO DAILY 03/09/14 Levothyroxine [Synthroid*] 137 mcg PO [id number] 03/09/14 Magnesium Oxide [Mag 0X*] 400 mg PO BID 03/09/14 Metformin HCl [Glucophage] 1,000 mg PO BID 03/09/14 Simvastatin 20 mg PO DAILY 03/09/14 Spironolactone [Aldactone*] 25 mg PO DAILY 03/09/14 Torsemide [Demadex*] 10 mg PO BID 03/09/14 carvediloL [Coreg*] 25 mg PO BID 03/09/14 Sotalol HCl [Betapace*] 80 mg PO BID 6AM 6PM #60 tab 03/10/14 Sacubitril/Valsartan [Entresto 49 mg-51 mg Tablet] 1 each PO BID 30 Days #60 tablet 10/07/20 Sacubitril/Valsartan [Entresto 49 mg-51 mg Tablet] 1 tab PO BID tab 10/07/20 - Past Medical/Surgical History Diabetic: Yes -: NIDDM -: HTN -: HYPERLIPIDEMIA -: Hypothyroidism -: Chronic systolic congestive heart failure -: PACEMAKER/DEFIBRILLATOR -: LUNG SX -: skin cx removal Psychosocial/ Personal History: Patient is retired lives at home with his - Family History Father -: Heart disease Mother -: Heart disease, Lung disease, Diabetes - Social History Smoking Status: Never smoker Alcohol use: No CD- Drugs: No Caffeine use: No Place of Residence: Home Review of Systems 10-point ROS is otherwise unremarkable Respiratory: Cough, Shortness of Breath Physical Examination - Physical Exam General: Alert, In no apparent distress, Oriented x3 HEENT: Atraumatic, PERRLA, Mucous membr. moist/pink, EOMI, Sclerae nonicteric Neck: Supple, 2+ carotid pulse no bruit, No LAD, Without JVD or thyroid abnormality Respiratory: Diminished, Crackles/rales Cardiovascular: Normal S1 S2, Irregular heart rate/rhythm (Paced), Systolic murmur Capillary refill: <2 Seconds Gastrointestinal: Normal bowel sounds, No tenderness Musculoskeletal: No tenderness Integumentary: No rashes Neurological: Normal gait, Normal speech, Normal strength at 5/5 x4 extr, Normal tone, Normal affect Lymphatics: No axilla or inguinal lymphadenopathy - Studies Laboratory Data (last 24 hrs) 01/17/21 04:35: WBC 11.80 H, Hgb 12.9 L, Hct 39.1 L, Plt Count 154 01/17/21 04:35: Sodium 135 L, Potassium 4.3, BUN 27 H, Creatinine 1.24, Glucose 203 H, Magnesium 1.6 L, Total Bilirubin 0.8, AST 11 L, ALT 15, Alkaline Phosphatase 86, Lipase 71 L Assessment and Plan - Plan Assessment: Acute hypoxic respiratory failure secondary to acute on chronic systolic congestive heart failure Diabetes type 2 Hypertension Hyperlipidemia Hypothyroidism Gout Plan: Acute hypoxic respiratory failure secondary to acute on chronic systolic congestive heart failure: Patient with known ejection fraction around 20% for the last 10 years, patient was on heart transplant list but was removed after reaching the age of 69. Patient with AICD in place reports he has been off of his diuretics for the last month because he felt as if the [facility] was making him urinate enough. Patient counseled on need to continue diuretic therapy, will continue Lasix IV 40 mg 3 times daily, consult cardiology, 1500 cc/day fluid restriction, daily weights and continue other home medications including Entresto. Diabetes type 2: A [facility] Accu-Chek, sliding scale insulin Hypertension: Home medications have been continued Hyperlipidemia: Home medications have been continued Hypothyroidism: Home medications have been continued Gout: Home medications have been continued DVT PPX: Lovenox Code status: Full Discharge Plan: Home Plan to discharge in: Greater than 2 days - Advance Directives Does patient have a Living Will: No Does patient have a Durable POA for Healthcare: No - Code Status/Comfort Care Code Status Assessed: Yes (Full code) Critical Care: No Time Spent Managing Pts Care (In Minutes): 55
[2021-01-17] MEDS ORDERED: MAGNESIUM SULFATE 1 gm IVPB 1 GM/100 ML BAG IV ONE (06:08)
--- NOTE | 2021-01-17 06:38 | P.PN ---
Subjective Date of Service: 01/17/21 Primary Care Provider: Florecita Alejo [facility] cardiology group Chief Complaint: CHF exacerbation Subjective: Improving, Doing well Physical Examination - Studies Laboratory Data (last 24 hrs) 01/17/21 04:35: PT 13.0 H, INR 1.13 01/17/21 04:35: WBC 11.80 H, Hgb 12.9 L, Hct 39.1 L, Plt Count 154 01/17/21 04:35: Sodium 135 L, Potassium 4.3, BUN 27 H, Creatinine 1.24, Glucose 203 H, Magnesium 1.6 L, Total Bilirubin 0.8, AST 11 L, ALT 15, Alkaline Phosphatase 86, Lipase 71 L Assessment & Plan Discharge Plan: Home Plan to discharge in: 24 Hours Physician Review Additional Text: COVID: negative CXR: COMPARISON: Portable October 07 TECHNIQUE: AP portable chest image was obtained 01/17/2021 3:47 am . FINDINGS: Patient has a prominent baseline interstitial lung pattern. Interstitial pattern is increased and there are patchy airspace opacities present. Cardiac silhouette is enlarged similar to comparison. Pacemaker/ defibrillator is in place. No measurable pleural effusion and no pneumothorax. No acute bony abnormality seen. No acute aortic findings suspected. IMPRESSION: Increased interstitial and alveolar opacification compared to prior imaging. Pattern is nonspecific. This could be early failure or volume overload. Early pneumonia, including COVID-19 pneumonia, are possibilities and need correlation with lab testing. Physical Exam: General: Alert, In no apparent distress, Oriented x3 HEENT: Atraumatic, PERRLA, Mucous membr. moist/pink, EOMI, Sclerae nonicteric Neck: Supple, 2+ carotid pulse no bruit, No LAD, Without JVD or thyroid abnormality Respiratory: Diminished, Crackles/rales Cardiovascular: Normal S1 S2, Irregular heart rate/rhythm (Paced), Systolic murmur Capillary refill: <2 Seconds Gastrointestinal: Normal bowel sounds, No tenderness Musculoskeletal: No tenderness Integumentary: No rashes Neurological: Normal gait, Normal speech, Normal strength at 5/5 x4 extr, Normal tone, Normal affect Lymphatics: No axilla or inguinal lymphadenopathy Impression: Acute hypoxic respiratory failure secondary to acute on chronic systolic congestive heart failure Diabetes type 2 Hypertension Hyperlipidemia Hypothyroidism Gout Plan: Acute hypoxic respiratory failure secondary to acute on chronic systolic congestive heart failure: Respiratory status improved. Early on room air. Prior ejection fraction around 20%. Patient with ICD in place. Hold IV diuretic therapy at this time since blood pressures are decreased. Parameters in place to hold blood pressure medication if systolic less than 110. Will monitor closely. Teach on 1500 cc/day fluid restriction. Await recommendations from cardiology. Anticipate improvement over the next 24 hours. May need to make further adjustments in medication. Patient takes Entresto, Aldactone and carvedilol. Diabetes type 2: Continue Accu-Cheks and sliding scale. Hypertension: Patient takes carvedilol 25 mg 1 pill twice daily, Aldactone 25 mg daily and Entresto twice daily. Parameters in place to hold if blood pressure systolic less than 110. Hyperlipidemia: Continue Zocor 20 mg daily Hypothyroidism: Continue levothyroxine 150 mcg daily Gout: Continue allopurinol. DVT PPX: Lovenox Code status: Full Advanced care planning: home at discharge Time Spent Managing Pts Care (In Minutes): 55
[2021-01-17 07:15] LABS: Blood Morphology Comment NOT SEEN (NOT SEEN); Platelet Estimate ADEQ
[2021-01-17] MEDS ORDERED: carvediloL 25 MG TAB PO SCH (07:37)
[2021-01-17] MEDS ORDERED: ONDANSETRON 4 MG/2 ML VIAL IV PRN (07:37)
[2021-01-17] MEDS ORDERED: LEVOTHYROXINE SOD 0.05 MG TABLET PO SCH (07:45)
[2021-01-17] MEDS: LEVOTHYROXINE SOD 0.075 MG TAB PO SCH (08:00)
[2021-01-17] MEDS ORDERED: SACUBITRIL/VALSARTAN 49/51 MG TAB PO SCH (09:00)
[2021-01-17] MEDS ORDERED: ASPIRIN EC 81 MG TAB PO SCH (09:00)
[2021-01-17] MEDS: allopurinoL 100 MG TAB PO SCH (09:00)
[2021-01-17] MEDS ORDERED: FUROSEMIDE 40 MG/4 ML VIAL IV SCH (09:00)
[2021-01-17] MEDS ORDERED: SPIRONOLACTONE 25 MG TABLET PO SCH ×2 (09:00→16:05)
[2021-01-17] MEDS: ENOXAPARIN 40 MG/0.4 ML SQ SCH (09:00)
[2021-01-17] MEDS: DIGOXIN 0.125 MG TABLET PO SCH (09:00)
--- NOTE | 2021-01-17 09:06 | RAD REPORT ---
EXAM DESCRIPTION: RAD - Chest Single View - 01/17/2021 3:47 am CLINICAL HISTORY: DYSPNEA COMPARISON: Portable October 07 TECHNIQUE: AP portable chest image was obtained 01/17/2021 3:47 am . FINDINGS: Patient has a prominent baseline interstitial lung pattern. Interstitial pattern is increa sed and there are patchy airspace opacities present. Cardiac silhouette is enlarged similar to compar serena. Pacemaker/ defibrillator is in place. No measurable pleural effusion and no pneumothorax. No ac jonathon bony abnormality seen. No acute aortic findings suspected. IMPRESSION: Increased interstitial and alveolar opacification compared to prior imaging. Pattern is nonspecific. This could be early failure or volume overload. Early pneumonia, including CO VID-19 pneumonia, are possibilities and need correlation with lab testing.
[2021-01-17] MEDS: INSULIN -REGULAR HUMAN 50 UNIT/0.5 ML ML SQ SCH ×4 (09:12→21:00)
[2021-01-17] MEDS ORDERED: ENOXAPARIN 40 MG/0.4 ML SQ ONE (09:26)
[2021-01-17] MEDS ORDERED: INSULIN -REGULAR HUMAN 50 UNIT/0.5 ML ML ONE (09:26)
[2021-01-17] MEDS ORDERED: SPIRONOLACTONE 25 MG TABLET ONE (09:54)
[2021-01-17 14:13] VITALS: BMI 28.0
[2021-01-17] MEDS ORDERED: ACETAMINOPHEN 325 MG TABLET PO PRN (14:44)
[2021-01-17] MEDS: SACUBITRIL/VALSARTAN 49/51 MG TAB PO SCH (16:39)
[2021-01-17] MEDS: carvediloL 25 MG TAB PO SCH (17:14)
--- NOTE | 2021-01-17 20:34 | CON ---
Date of Consultation: 01/17/2021 Reason For Consultation: Heart failure exacerbation. History Of Present Illness: A 70-year-old male with history of nonischemic cardiomyopathy, was on tr ansplant list, was removed off the list due to age; history diabetes; dyslipidemia; hypertension; hyp othyroidism; has an ICD in place. He is to be on torsemide. He stopped it because he was urinating a lot. However, over the past 2 days, he has been having significant shortness of breath with orthop neil, so he presented to the emergency room, found to be in acute heart failure, started on Lasix and he is feeling already better. Does not have any chest pain. Past Medical History: As outlined above in HPI. Medications: Refer to reconciliation sheet for detailed list. Allergies: NO KNOWN DRUG ALLERGIES. Family History: No premature coronary artery disease or cancer. Review of Systems: All systems reviewed and they were negative except as mentioned in HPI. Social History: Does not smoke or drink. Does not use any drugs. Physical Examination: Vital Signs: Temperature is 98.4, pulse 82, breathing at 16, blood pressure is 96/59. General: Pleasant elderly male, in no apparent distress. Head and Neck: Pupils are equal, reactive to light. Intact eye movements. No JVD. No cervical lym phadenopathy. Neck is supple. Lungs: Clear to auscultation bilaterally. No rhonchi, rales, or crackles. No accessory muscle use. Heart: Regular rate and rhythm. No extra sounds. Abdomen: Soft, nontender. Bowel sounds positive. No organomegaly. No masses or hernia. No rigidi ty or rebound. Extremities: No edema, clubbing, or cyanosis. Intact pulses. Skin: No rash noted. Neurologic: Alert, awake and oriented x3. No acute focal deficits appreciated. Investigations: The BUN 27, creatinine 1.2. BNP is 2055. Troponin less than 0.02. Chest x-ray, CH F. Assessment And Recommendations: Acute on chronic systolic congestive heart failure exacerbation. Th e patient is known to have nonischemic cardiomyopathy and he follows at the [facility] for possible LVAD in the near future. Explained the patient that he needs to continu e taking his diuretics and be compliant with it. At this point, he seems to be euvolemic from a card iology standpoint. He can be placed back on his torsemide. Please verify the dose and can be releas ed home and follow up as an outpatient with the Cardiology team with planning for LVAD placement in t he near future. Thank you for the consult. /DAPHNE Voice ID: [id number] Report ID: [id number]
[2021-01-17] MEDS: MAGNESIUM OXIDE 400 MG TAB PO SCH (20:43)
[2021-01-17] MEDS ORDERED: ATORVASTATIN 10 MG TAB PO SCH (21:00)
[2021-01-17] MEDS ORDERED: NA CHLORIDE 0.9% 250 ML IV ONE (21:12)
[2021-01-18 00:28] LABS: Urine Appearance CLEAR (Clear); Urine Bilirubin NEGATIVE (Negative); Urine Blood NEGATIVE (Negative); Urine Color YELLOW (Yellow); Urine Glucose NEGATIVE (Negative); Urine Protein NEGATIVE (Negative); Urine Urobilinogen 0.2 mg/dL (0.2-1.0)
[2021-01-18 00:57] LABS: Urine Microscopic Reflex NO UMIC
[2021-01-18] MEDS: carvediloL 25 MG TAB PO SCH (05:33)
[2021-01-18 05:50] LABS: Absolute Lymphocytes (CBC) 1.4 K/uL (0.7-4.9); Basophils % 1.3 % (0-1.3); Hematocrit 37.7 % (39.6-49.0); Lymphocytes % 20.2 % (15.3-44.8); MPV 9.6 fL (7.6-11.3); RBC Red Blood Cell Count 4.06 M/uL (4.33-5.43)
--- NOTE | 2021-01-18 05:59 | P.PN ---
Subjective Date of Service: 01/18/21 Primary Care Provider: Florecita Alejo [facility] cardiology group Chief Complaint: CHF exacerbation Subjective: Improving, Doing well (Orthostatics within normal range. Patient back to his baseline. Patient reports that his blood pressures usually run low.) Physical Examination - Vital Signs Temperature: 97.3 F Blood Pressure: 82/45 Pulse: 61 Respirations: 18 Pulse Ox (%): 94 Assessment & Plan Discharge Plan: Home Plan to discharge in: 24 Hours Physician Review Additional Text: COVID: negative CXR: COMPARISON: Portable October 07 TECHNIQUE: AP portable chest image was obtained 01/17/2021 3:47 am . FINDINGS: Patient has a prominent baseline interstitial lung pattern. Interstitial pattern is increased and there are patchy airspace opacities present. Cardiac silhouette is enlarged similar to comparison. Pacemaker/ defibrillator is in place. No measurable pleural effusion and no pneumothorax. No acute bony abnormality seen. No acute aortic findings suspected. IMPRESSION: Increased interstitial and alveolar opacification compared to prior imaging. Pattern is nonspecific. This could be early failure or volume overload. Early pneumonia, including COVID-19 pneumonia, are possibilities and need correlation with lab testing. Physical Exam: General: Alert, In no apparent distress, Oriented x3 HEENT: Atraumatic, PERRLA, Mucous membr. moist/pink, EOMI, Sclerae nonicteric Neck: Supple, 2+ carotid pulse no bruit, No LAD, Without JVD or thyroid abnormality Respiratory: Diminished, Crackles/rales Cardiovascular: Normal S1 S2, Irregular heart rate/rhythm (Paced), Systolic murmur Capillary refill: <2 Seconds Gastrointestinal: Normal bowel sounds, No tenderness Musculoskeletal: No tenderness Integumentary: No rashes Neurological: Normal gait, Normal speech, Normal strength at 5/5 x4 extr, Normal tone, Normal affect Lymphatics: No axilla or inguinal lymphadenopathy Impression: Acute hypoxic respiratory failure secondary to acute on chronic systolic congestive heart failure Diabetes type 2 Hypertension Hyperlipidemia Hypothyroidism Gout Plan: Acute hypoxic respiratory failure secondary to acute on chronic systolic congestive heart failure: Patient now on room air. Prior ejection fraction around 20%. Patient with ICD in place. Pressure stable at this time. Continue with his medications. We will plan for discharge today. Patient takes Entresto, Aldactone and carvedilol. Diabetes type 2: Continue Accu-Cheks and sliding scale. Hypertension: Patient takes carvedilol 25 mg 1 pill twice daily, Aldactone 25 mg daily and Entresto twice daily. Parameters in place to hold if blood pressure systolic less than 110. Hyperlipidemia: Continue Zocor 20 mg daily Hypothyroidism: Continue levothyroxine 150 mcg daily Gout: Continue allopurinol. DVT PPX: Lovenox Code status: Full Advanced care planning: home at discharge Time Spent Managing Pts Care (In Minutes): 55
[2021-01-18 06:25] LABS: Albumin 3.2 g/dL (3.4-5.0); Potassium 4.2 mmol/L (3.5-5.1); Protein, Total 7.7 g/dL (6.4-8.2); Thyroid Stimulating Hormone 1.67 uIU/mL (0.360-3.740)
[2021-01-18] MEDS: LEVOTHYROXINE SOD 0.075 MG TAB PO SCH (06:45)
--- NOTE | 2021-01-18 07:13 | RAD REPORT ---
EXAM DESCRIPTION: RAD - Chest Single View - 01/18/2021 4:53 am CLINICAL HISTORY: CHF COMPARISON: Portable January 17, portable October 07 TECHNIQUE: AP portable chest image was obtained 01/18/2021 4:53 am . FINDINGS: Lung volumes have improved. Interstitial opacification has diminished. Vasculature and hea rt size improved as well. Trachea remains midline. Heart and vasculature are normal. No measurable pl eural effusion and no pneumothorax. No acute bony abnormality seen. No acute aortic findings suspecte d. IMPRESSION: Complete or near complete resolution of the CHF/volume overload findings.
[2021-01-18] MEDS: ENOXAPARIN 40 MG/0.4 ML SQ SCH (08:25)
[2021-01-18] MEDS: INSULIN -REGULAR HUMAN 50 UNIT/0.5 ML ML SQ SCH (08:25)
[2021-01-18] MEDS: DIGOXIN 0.125 MG TABLET PO SCH (08:26)
[2021-01-18] MEDS: allopurinoL 100 MG TAB PO SCH (08:26)
[2021-01-18] MEDS: SACUBITRIL/VALSARTAN 49/51 MG TAB PO SCH (08:29)
[2021-01-18] MEDS: MAGNESIUM OXIDE 400 MG TAB PO SCH (08:29)
[2021-01-18] MEDS ORDERED: ATORVASTATIN 10 MG TAB PO SCH (09:00)
[2021-01-18] MEDS ORDERED: HOME MED 1 EA UNK (Simvastatin [Simvastatin] 20 MG Tablet) PO SCH (09:00)
[2021-01-18 09:35] VITALS: O2SAT 95
[2021-01-18 10:22] VITALS: BP 82/45; TEMP 97.3
--- NOTE | 2021-01-18 10:24 | P.DS ---
Admission Date: 01/17/21 Discharge Date: 01/18/21 Primary Care Provider: Florecita Alejo [facility] cardiology group Disposition: ROUTINE DISCHARGE Discharge Condition: GOOD Reason for Admission: CHF exacerbation Consultations: Cardiology-Dr. Sadler Procedures: COVID: negative CXR: COMPARISON: Portable October 07 TECHNIQUE: AP portable chest image was obtained 01/17/2021 3:47 am . FINDINGS: Patient has a prominent baseline interstitial lung pattern. Interstitial pattern is increased and there are patchy airspace opacities present. Cardiac silhouette is enlarged similar to comparison. Pacemaker/ defibrillator is in place. No measurable pleural effusion and no pneumothorax. No acute bony abnormality seen. No acute aortic findings suspected. IMPRESSION: Increased interstitial and alveolar opacification compared to prior imaging. Pattern is nonspecific. This could be early failure or volume overload. Early p neumonia, including COVID-19 pneumonia, are possibilities and need correlation with lab testing. Follow up CXR: COMPARISON: Portable January 17, portable October 07 TECHNIQUE: AP portable chest image was obtained 01/18/2021 4:53 am . FINDINGS: Lung volumes have improved. Interstitial opacification has diminished. Vasculature and heart size improved as well. Trachea remains midline. Heart and vasculature are normal. No measurable pleural effusion and no pneumothorax. No acute bony abnormality seen. No acute aortic findings suspected. IMPRESSION: Complete or near complete resolution of the CHF/volume overload findings. Medical problem list: Acute hypoxic respiratory failure secondary to acute on chronic systolic congestive heart failure with history of ischemic cardiomyopathy on transplant list Diabetes type 2 Atrial fibrillation not on chronic anticoagulation therapy Hypertension Hyperlipidemia Hypothyroidism Gout Brief History of Present Illness: 70-year-old male with history of diabetes mellitus type 2, chronic systolic congestive heart failure, hypertension, hyperlipidemia, hypothyroidism presents emerge department for shortness of breath. Patient reports that he is changed to Farxiga from his other diabetic medication and noticed increased uri nation so he quit taking his diuretics at home. Patient reports he has been off of his torsemide for the last 1 to 1.5 months. Patient was evaluated in the emergency department found to be hypoxic on room air saturating in the 85-87 range, patient cannot follow nasal cannula at this time lab significant for white blood cell count 11.8 hemoglobin 12.9 hematocrit 39.1 sodium 135 BUN 27 GFR 57 glucose 203 magnesium 1.6 BNP 5 Covid test negative chest x-ray appears to show volume overload pattern. Patient was admitted for further evaluation and treatment. Hospital Course: Patient presented with acute hypoxic respiratory failure secondary to acute on chronic systolic CHF. Patient with underlying nonischemic cardiomyopathy on transplant list. Patient also has ICD in place. Patient had been off of his torsemide. Patient presented with shortness of breath. Patient required diuresis. Patient has improved with IV Lasix. Patient back to his baseline. Blood pressures have remained low but orthostatics are normal. Patient reports blood pressures run around 95 systolic. Case discussed in detail with cardiology. Cardiology recommends to continue with his current medications. At discharge patient may continue with his current medications including carvedilol 25 mg 1 pill twice daily, Entresto 49/51 mg 1 pill twice daily, digoxin 125 mcg daily, magnesium oxide 400 mg 1 pill twice daily, Zocor 20 mg daily, Betapace 80 mg 1-1/2 pills daily, Aldactone 25 mg 1 pill daily, and torsemide 20 mg daily as needed for shortness of breath and edema. Due to his low blood pressures recommend to monitor blood pressures at least twice daily. May need to hold his medications including carvedilol, Entresto, Betapace, Aldactone and torsemide if blood pressure systolic less than 90. This can be further monitored closely by the transplant team. Recommend follow-up with transplant team within 1 week to follow-up his hospitalization and continue his care. Education on CHF and hypertension will be provided. Patient with hyperlipidemia. At discharge patient may continue with Zocor 20 mg daily. Patient with atrial fibrillation not on chronic anticoagulation therapy. Patient takes Betapace 80 mg 1-1/2 pills daily. Continue with above recommendations. Patient with hypothyroidism. At discharge patient will continue with levothyroxine 150 mcg daily. There is some question of possible underlying diabetes. Patient previously on Farxiga. Blood sugars have been well controlled at this time. Will check A1c prior to discharge. Recommend to discontinue Farxiga as this will increase risk for dysuria. Recommend follow-up with PCP to further monitor and adjust medication. Patient may continue with diabetic diet. Likely no need for medi cation at this time. Vital Signs/Physical Exam: Temp Pulse Resp BP Pulse Ox 97.3 F 61 18 82/45 L 94 01/18/21 10:01/18/21 10:01/18/21 10:01/18/21 10:01/18/21 10:22 General: Alert, In no apparent distress, Oriented x3, Cooperative HEENT: Atraumatic Neck: Supple Respiratory: Clear to auscultation bilaterally, Normal air movement Cardiovascular: Normal pulses, Regular rate/rhythm Gastrointestinal: Normal bowel sounds, Soft and benign, Non-distended Musculoskeletal: No tenderness Integumentary: No tenderness/swelling Neurological: Normal speech, Normal strength at 5/5 x4 extr, Normal tone Laboratory Data at Discharge: WBC 7.10 K/uL (4.3-10.9) D 01/18/21 05:28 Hgb 12.6 g/dL (13.6-17.9) L 01/18/21 05:28 Hct 37.7 % (39.6-49.0) L 01/18/21 05:28 Plt Count 140 K/uL (152-406) L 01/18/21 05:28 PT 13.0 SECONDS (9.5-12.5) H 01/17/21 04:35 INR 1.13 01/17/21 04:35 Sodium 136 mmol/L (136-145) 01/18/21 05:28 Potassium 4.2 mmol/L (3.5-5.1) 01/18/21 05:28 BUN 32 mg/dL (7-18) H 01/18/21 05:28 Creatinine 1.40 mg/dL (0.55-1.3) H 01/18/21 05:28 Glucose 156 mg/dL (74-106) H 01/18/21 05:28 Magnesium 1.6 mg/dL (1.8-2.4) L 01/17/21 04:35 Total Bilirubin 1.0 mg/dL (0.2-1.0) 01/18/21 05:28 AST 10 U/L (15-37) L 01/18/21 05:28 ALT 14 U/L (12-78) 01/18/21 05:28 Alkaline Phosphatase 65 U/L (45-117) 01/18/21 05:28 Triglycerides 141 mg/dL (<150) 01/18/21 05:28 Cholesterol 121 mg/dL (<200) 01/18/21 05:28 HDL Cholesterol 37 mg/dL (40-60) L 01/18/21 05:28 Cholesterol/HDL Ratio 3.27 01/18/21 05:28 Lipase 71 U/L (73-393) L 01/17/21 04:35 Home Medications: Digoxin [Lanoxin*] 125 mcg PO DAILY 03/09/14 Levothyroxine [Synthroid*] 150 mcg PO [id number] 03/09/14 Magnesium Oxide [Mag 0X*] 400 mg PO BID 03/09/14 Simvastatin 20 mg PO DAILY 03/09/14 Spironolactone [Aldactone*] 25 mg PO DAILY 03/09/14 Torsemide [Demadex*] 20 mg PO PRN 03/09/14 carvediloL [Coreg*] 25 mg PO BID 03/09/14 Sacubitril/Valsartan [Entresto 49 mg-51 mg Tablet] 1 each PO BID 30 Days #60 tablet 10/07/20 Sotalol HCl [Betapace*] 1.5 tab PO DAILY 01/17/21 Physician Discharge Instructions: Patient presented with acute hypoxic respiratory failure secondary to acute on chronic systolic CHF. Patient with underlying nonischemic cardiomyopathy on transplant list. Patient also has ICD in place. Patient had been off of his torsemide. Patient presented with shortness of breath. Patient required diuresis. Patient has improved with IV Lasix. Patient back to his baseline. Blood pressures have remained low but orthostatics are normal. Patient reports blood pressures run around 95 systolic. Case discussed in detail with cardiology. Cardiology recommends to continue with his current medications. At discharge patient may continue with his current medications including carvedilol 25 mg 1 pill twice daily, Entresto 49/51 mg 1 pill twice daily, digoxin 125 mcg daily, magnesium oxide 400 mg 1 pill twice daily, Zocor 20 mg daily, Betapace 80 mg 1-1/2 pills daily, Aldactone 25 mg 1 pill daily, and torsemide 20 mg daily as needed for shortness of breath and edema. Due to his low blood pressures recommend to monitor blood pressures at least twice daily. May need to hold his medications including carvedilol, Entresto, Betapace, Aldactone and torsemide if blood pressure systolic less than 90. This can be further monitored closely by the transplant team. Recommend follow-up with transplant team within 1 week to follow-up his hospitalization and continue his care. Education on CHF and hypertension will be provided. Patient with hyperlipidemia. At discharge patient may continue with Zocor 20 mg daily. Patient with atrial fibrillation not on chronic anticoagulation therapy. Patient takes Betapace 80 mg 1-1/2 pills daily. Continue with above recommendations. Patient with hypothyroidism. At discharge patient will continue with levothyroxine 150 mcg daily. There is some question of possible underlying diabetes. Patient previously on Farxiga. Blood sugars have been well controlled at this time. Will check A1c prior to discharge. Recommend to discontinue Farxiga as this will increase risk for dysuria. Recommend follow-up with PCP to further monitor and adjust medication. Patient may continue with diabetic diet. Likely no need for medication at this time. Diet: AHA Activity: Ad lashay Followup: NONE,NONE [Primary Care Provider] - Time spent managing pt's care (in minutes): 55
--- NOTE | 2021-01-20 06:46 | PN ---
Date of Progress Note: 01/18/2021 Mr. Guallpa was admitted by Dr. Gupta, has been seen by Dr. Sadler for acute on chronic systolic conge stive heart failure. Has been removed from the transplant list because of multiple other comorbiditi es. He had a defibrillator. He has a pacemaker. His blood pressure this morning is 87/45, but he f eels much better. He is on appropriate therapy. He has a plan to follow up with the Heart Transplan t Team at [facility]. I will continue his present regimen. His last creatinine is 1.4, unco mfortable. Will be going home whenever it is okay with Dr. Gupta. MILTON/DAPHNE Voice ID: [id number] Report ID: [id number]
== END 2021-01-18 12:00 | disposition home or self-care (01) | DRG 291 ==
LOC: ER 03:24 → ERHOLD 05:47 → 2ND 13:08
PROVIDERS: ADMIT Family Medicine; ATTEND Family Medicine
DX: I11.0 Hypertensive heart disease with heart failure (principal); J96.01 Acute respiratory failure with hypoxia; I50.23 Acute on chronic systolic (congestive) heart failure; I25.5 Ischemic cardiomyopathy; E11.9 Type 2 diabetes mellitus without complications; I48.91 Unspecified atrial fibrillation; E78.5 Hyperlipidemia, unspecified; E03.9 Hypothyroidism, unspecified; M10.9 Gout, unspecified; Z95.810 Presence of automatic (implantable) cardiac defibrillator; Z20.822 Contact with and (suspected) exposure to COVID-19
CPT/HCPCS: 36415; 71045; 80048; 80053; 80061; 80076; 80162; 81003; 82947; 83690; 83735; 83880; 84145; 84439; 84443; 84484; 85025; 85610; 87040; 93005; 96365; 96375; 97161; 99284; J1650; J1940; J3475; J7050; U0003